=== PATIENT | male | born 1950 ===

== ENCOUNTER 2017-07-27 13:37 | Emergency (ER) | payer MEDICARE, OTHER ==
[2017-07-27 14:03] VITALS: BP 151/73
[2017-07-27] MEDS ORDERED: Acetaminophen TAB* 325 MG PO ONE (14:51)
--- NOTE | 2017-07-27 14:51 | UC ---
UC General HPI - HPI Summary HPI Summary: pt is c/o a headache, sore throat, body aches and a red goopy eye since M.onday. Was exposed to great grandchild with pink eye just before onset - History of Current Complaint Chief Complaint: UCGeneralIllness Stated Complaint: HEADACHE/COUGH/EYE COMP Time Seen by Provider: 07/27/17 14:42 Hx Obtained From: Patient, Family/Medical File Clerk Onset/Duration: Gradual Onset Timing: Constant Pain Intensity: 5 Associated Signs & Symptoms: Positive: Headache. Negative: Cough, Chest Pain - Allergy/Home Medications Allergies/Adverse Reactions: Allergies Allergy/AdvReac Type Severity Reaction Status Date / Time No Known Allergies Allergy Verified 07/27/17 13:55 Home Medications: Home Medications Atorvastatin* [Lipitor 20 MG*] 20 mg PO BEDTIME 07/27/17 [History Confirmed ] Ibuprofen TAB* [Motrin TAB* 800 MG] 800 mg PO Q8HR PRN 07/27/17 [History Confirmed 07/27/17] Lisinopril TAB* [Prinivil TAB 10 MG*] 10 mg PO DAILY 07/27/17 [History Confirmed 07/27/17] glipiZIDE [Glipizide ER] 1 tab PO BID 07/27/17 [History Confirmed 07/27/17] metFORMIN* [Glucophage 500 MG TAB *] 500 mg PO BID 07/27/17 [History Confirmed 07/27/17] PMH/Surg Hx/FS Hx/Imm Hx Endocrine History: Diabetes, Dyslipidemia Cardiovascular History: Hypertension - Surgical History Surgical History: Yes Surgery Procedure, Year, and Place: Left toe surgery s/p chainsaw accident - Social History Alcohol Use: None Substance Use Type: None Smoking Status (MU): Never Smoked Tobacco Household Exposure Type: Cigarettes Review of Systems Constitutional: Negative Skin: Negative Eyes: Drainage - L, Eye Redness - L ENT: Sore Throat, Sinus Congestion Respiratory: Negative Cardiovascular: Negative Gastrointestinal: Negative Genitourinary: Negative Motor: Negative Neurovascular: Negative Musculoskeletal: Myalgia Neurological: Headache Psychological: Negative Is Patient Immunocompromised?: No All Other Systems Reviewed And Are Negative: Yes Physical Exam Triage Information Reviewed: Yes Appearance: Well-Appearing Vital Signs: Initial Vital Signs Temp 99.1 F 07/27/17 13:56 Pulse 69 07/27/17 13:56 Resp 20 07/27/17 13:56 BP 151/73 07/27/17 13:56 Pulse Ox 97 07/27/17 13:56 Vital Signs Reviewed: Yes Eyes: Positive: Other: - L eye with conjunctival erythema and scant yellow exudate on lashes. no photophobia periorbiatl edema or rash. ENT: Positive: Pharyngeal erythema, TMs normal, Uvula midline. Negative: Nasal congestion, Nasal drainage, Trismus, Muffled voice Neck: Positive: Supple, Nontender, No Lymphadenopathy Respiratory: Positive: Lungs clear, Normal breath sounds Cardiovascular: Positive: RRR, No Murmur Abdomen Description: Positive: Nontender, No Organomegaly, Soft Bowel Sounds: Positive: Present Musculoskeletal: Positive: ROM Intact Neurological: Positive: Alert Psychological: Positive: Normal Response To Family, Age Appropriate Behavior Skin Exam: Normal Diagnostics - Laboratory Diagnostic Studies Completed/Ordered: rpid strep and flu are negative. Course/Dx - Course Course Of Treatment: Exam c/o L pink eye and uri - Differential Dx - Multi-Symptom Provider Diagnoses: URI. conjunctivitis OS Discharge - Sign-Out/Discharge Documenting (check all that apply): Discharge - Discharge Plan Condition: Stable Disposition: HOME Prescriptions: Polymyx/Trimethoprim OPTH* [Polytrim OPHTH*] 2 drop LEFT EYE Q3H 7 Days #1 btl Patient Education Materials: Conjunctivitis (ED), Upper Respiratory Infection ( ED) Referrals: Lora Monterroso MD [Primary Care Provider] - 7 Days - Billing Disposition and Condition Condition: STABLE Disposition: HOME
== END 2017-07-27 15:43 | disposition home or self-care (01) ==
LOC: UCCORT 13:37
DX: J06.9 Acute upper respiratory infection, unspecified (principal); H10.9 Unspecified conjunctivitis; E11.9 Type 2 diabetes mellitus without complications; Z79.84 Long term (current) use of oral hypoglycemic drugs; I10 Essential (primary) hypertension; E78.5 Hyperlipidemia, unspecified
CPT/HCPCS: 87502; 87651; 99212; A9270-GY; G0463

== ENCOUNTER 2018-06-21 15:49 | Inpatient (IN) | payer OTHER ==
--- NOTE | 2018-06-21 15:59 | ED ---
Lower Extremity - HPI Summary HPI Summary: Pt is a 67 y/o male brought in by EMS who presents to the ED c/o toe wound. He was attacked by a dog 3 weeks ago and was admitted to [facility] s/p left fourth toe amputation. Pt was just released today to [facility]. He was sent here today for possible necrosis of his left third toe. He denies any fevers or chills. Pt currently rates his pain as a 10/10 in severity. He is unsure if he is currently on antibiotics. PMhx DM, chronic kidney disease. - History of Current Complaint Chief Complaint: EDExtremityLower Stated Complaint: LT TOE INJURY PER EMS Time Seen by Provider: 06/21/18 15:56 Hx Obtained From: Patient Mechanism Of Injury: Other - attacked by a dog Onset/Duration: Worse Since - 3 Severity Currently: Severe Pain Intensity: 10 Pain Scale Used: 0-10 Numeric Timing: Constant Location: Is Discrete @ - left foot - Allergies/Home Medications Allergies/Adverse Reactions: Allergies Allergy/AdvReac Type Severity Reaction Status Date / Time No Known Allergies Allergy Verified 06/21/18 15:57 PMH/Surg Hx/FS Hx/Imm Hx Endocrine/Hematology History: Reports: Hx Diabetes History: Reports: Hx Renal Disease - chronic kidney disease Musculoskeletal History: Reports: Other Musculoskeletal History - fourth left toe amputation - Surgical History Surgery Procedure, Year, and Place: Left toe surgery s/p chainsaw accident Infectious Disease History: No Infectious Disease History: Denies: Traveled Outside the [place] in Last 30 Days - Family History Known Family History: Negative: Hypertension - Social History Alcohol Use: None Hx Substance Use: No Substance Use Type: Reports: None Hx Tobacco Use: No Smoking Status (MU): Never Smoked Tobacco Review of Systems Negative: Fever, Chills Positive: Other - wound on left third toe All Other Systems Reviewed And Are Negative: Yes Physical Exam - Summary Physical Exam Summary: Appearance: The patient is well-nourished in no acute distress and in no acute pain. Skin: The skin is warm and dry and skin color reflects adequate perfusion. Multiple healing wounds on left foot with mild erythema. HEENT: The head is normocephalic and atraumatic. The pupils are equal and reactive. The conjunctivae are clear and without drainage. Nares are patent and without drainage. Mouth reveals moist mucous membranes and the throat is without erythema and exudate. The external ears are intact. The ear canals are patent and without drainage. The tympanic membranes are intact. Neck: The neck is supple with full range of motion and non-tender. There are no carotid bruits. There is no neck vein distension. Respiratory: Chest is non-tender. Lungs are clear to auscultation and breath sounds are symmetrical and equal. Cardiovascular: Heart is regular rate and rhythm. There is no murmur or rub auscultated. There is no peripheral edema and pulses are symmetrical and equal. Abdomen: The abdomen is soft and non-tender. There are normal bowel sounds heard in all four quadrants and there is no organomegaly palpated. Musculoskeletal: There is no back tenderness noted. Extremities are non-tender with full range of motion. There is good capillary refill. There is no peripheral edema or calf tenderness elicited. Left fourth toe missing. Left third toe necrotic and malodorous. Right foot in surgical boot. Neurological: Patient is alert and oriented to person, place and time. The patient has symmetrical motor strength in all four extremities. Cranial nerves are grossly intact. Deep tendon reflexes are symmetrical and equal in all four extremities. Psychiatric: The patient has an appropriate affect and does not exhibit any anxiety or depression. Triage Information Reviewed: Yes Vital Signs On Initial Exam: Initial Vitals Temp Pulse Resp BP Pulse Ox 99.0 F 110 18 114/81 96 06/21/18 15:54 06/21/18 15:54 06/21/18 15:54 06/21/18 15:54 06/21/18 15:54 Vital Signs Reviewed: Yes Diagnostics - Vital Signs Vital Signs Temp Pulse Resp BP Pulse Ox 06/21/18 15:54 99.0 F 110 18 114/81 96 - Laboratory Result Diagrams: 06/21/18 16:30 06/21/18 16:30 Lab Statement: Any lab studies that have been ordered have been reviewed, and results considered in the medical decision making process. - Radiology Foot XR Radiology Interpretation Completed By: Radiologist Summary of Radiographic Findings: 1. SOFT TISSUE SWELLING AND GAS WITHIN THE SOFT TISSUES SUGGESTIVE OF AN INFECTIOUS NECROTIZING PROCESS. 2. POSTSURGICAL CHANGES IN THE GREAT TOE. THERE IS JOINT SPACE NARROWING AND EROSIVE CHANGE IN THE INTERPHALANGEAL JOINT OF THE GREAT TOE POSSIBLY INDICATING A SEPTIC ARTHRITIS, POSTSURGICAL CHANGE OR AN INFLAMMATORY ARTHROPATHY. ED physician reviewed radiology report. Lower Extremity Course/Dx - Course Course Of Treatment: [facility]. [facility]. He has been in the hospital in [place] for 3 weeks after surgery on his left foot with fourth toe amputation after a dog bite. The nurse apparently took his bandage down and were concerned about the wounds. On arrival here was slightly tachycardic and when we took his bandage down he was noted to have a necrotic third toe and a swollen and erythematous distal foot. Leukocytosis of 14 was noted on labs as well as an elevated CRP and a foot x- ray shows gas in the soft tissues. On arrival was given IV normal saline and when I saw the x-ray he was then given IV Zosyn and Dr. Baum was contacted. Dr. Baum felt we should keep him here in the hospital and admitted to the hospitalist service and he will consult. - Diagnoses Provider Diagnoses: Wound infection, Sepsis - Physician Notifications Discussed Care Of Patient With: Kanu Baum Time Discussed With Above Provider: 17:17 Instructed by Provider To: Other - Dr. Baum recommends admission. At 17:[address] Nunez who accepts pt for admission. - Critical Care Time Critical Care Time: 30-74 min Discharge - Sign-Out/Discharge Documenting (check all that apply): Patient Departure - Admit Patient Received Moderate/Deep Sedation with Procedure: No - Discharge Plan Condition: Stable Disposition: ADMITTED TO [facility] Referrals: Lora Monterroso MD [Medical Doctor] - - Billing Disposition and Condition Condition: STABLE Disposition: Admitted to [facility] - Attestation Statements Document Initiated by Raven: Yes Documenting Scribe: La Parisi Provider For Whom Raven is Documenting (Include Credential): Francis Long MD Scribe Attestation: La Bailey, scribed for Francis Long MD on 06/21/18 at 1734. Scribe Documentation Reviewed: Yes Provider Attestation: The documentation as recorded by the La tovar accurately reflects the service I personally performed and the decisions made by me, Francis Long MD Status of Scribe Document: Viewed
[2018-06-21] MEDS ORDERED: NS 0.9% 1000 ML** 1,000 ML IV ONE ×2 (16:10→17:08)
[2018-06-21 16:40] LABS: ABS Basophils 0.1 10^3/ul (0-0.2); ABS Eosinophils 0.3 10^3/ul (0-0.6); ABS Lymphocytes 2.5 10^3/ul (1.0-4.8); ABS Monocytes 1.1 10^3/ul (0-0.8); ABS Neutrophils 10.2 10^3/ul (1.5-7.7); ABS Nucleated RBC 0 10^3/ul; Eosinophil % 2.2 %; Hematocrit 30 % (42-52); Hemoglobin 10.1 g/dl (14.0-18.0); Lymphocyte % 17.8 %; Mean Corpuscular HGB Conc 34 g/dl (31-36); Mean Corpuscular Hemoglobin 28 pg (27-31); Mean Corpuscular Volume 84 fL (80-94); Mean Platelet Volume 7.4 fL (7.4-10.4); Nucleated Red Blood Cells % 0; Platelet Count 995 10^3/ul (150-450); Red Blood Count 3.61 10^6/ul (4.00-5.40); Red Cell Distribution Width 14 % (10.5-15); White Blood Count 14.2 10^3/ul (3.5-10.8)
[2018-06-21 16:50] LABS: Activated Partial Thrombo Time 30.6 seconds (26.0-36.3); INR 1.2 (0.77-1.02)
[2018-06-21 16:58] LABS: Albumin 3.4 g/dL (3.2-5.2); Albumin/Globulin Ratio 0.8 (1-3); BUN/Creatinine Ratio 19.6 (8-20); C Reactive Protein 194.06 mg/L (<8.01); Calcium 9.3 mg/dL (8.6-10.3); EGFR African American 59.9 (>60); EGFR Non-African American 49.5 (>60); Globulin 4.2 g/dL (2-4); Potassium 4.4 mmol/L (3.5-5.0); Total Bilirubin 0.4 mg/dL (0.2-1.0); Total Protein 7.6 g/dL (6.4-8.9)
[2018-06-21] MEDS ORDERED: Clotrimazole TROCHE* 10 MG TROCHE PO ONE (17:06)
[2018-06-21] MEDS ORDERED: Piperacillin/Tazobac ADVAN(*) 3.375 GM in NS 0.9% 100 ML* 100 ML IVPB ONE (17:08)
[2018-06-21] MEDS ORDERED: Ondansetron INJ* 2 MG/ML VIAL IV PRN (18:06)
[2018-06-21] MEDS ORDERED: Heparin VIAL(*) 5000 UNITS/ML VIAL (FIVE THOUSAND) SUBCUT ONE (18:08)
[2018-06-21] MEDS ORDERED: oxyCODONE TAB* 5 MG TAB PO PRN (18:09)
[2018-06-21] MEDS ORDERED: Dextrose 50% Syringe 50 ML* 25 GM/50 ML SYRINGE IV PUSH PRN (18:27)
[2018-06-21] MEDS ORDERED: NS 0.9% IV SCH (18:30)
[2018-06-21] MEDS ORDERED: Insulin LISPRO* 1 UNITS UNIT SUBCUT ONE (18:54)
[2018-06-21] MEDS ORDERED: Zosyn per Pharmacy* NOTE FOLLOW UP SCH (19:00)
[2018-06-21] MEDS: Insulin LISPRO* 1 UNITS UNIT SUBCUT SCH (19:06)
[2018-06-21] MEDS: Clotrimazole TROCHE* 10 MG TROCHE PO SCH ×2 (20:57→21:13)
[2018-06-21] MEDS: Atorvastatin* 20 MG TAB PO SCH (21:09)
[2018-06-21] MEDS: Docusate CAP* 100 MG PO SCH (21:09)
[2018-06-21] MEDS: Linezolid 600 MG IVPREMIX(*) 600 MG/300 ML BAG IVPB SCH (21:10)
[2018-06-21] MEDS: NS 0.9% 1000 ML** 1,000 ML IV SCH (21:12)
--- NOTE | 2018-06-21 22:07 | HP ---
CC: Eva Valentine MD; Dr. Kanu Baum * ADMISSION HISTORY AND PHYSICAL: DATE OF ADMISSION: 06/21/18 PRIMARY CARE PROVIDER: Eva Valentine MD. MY ATTENDING WHILE IN THE HOSPITAL: Dr. Mcmahon * (DICTATED BY CONSTANTIN CHACKO) CONSULTING ORTHOPEDIST: Dr. Kanu Baum. CHIEF COMPLAINT: Black left third toe. HISTORY OF PRESENT ILLNESS: Mr. Tyson is a 67-year-old male with past medical history significant for diabetes mellitus type 2, high blood pressure and kidney disease, who presents to the emergency department after 2 weeks ago he was feeling under the weather with flu-like symptoms and subsequently went out to find 2 of his dogs fighting, slipped and had both of his feet mauled by the dogs that were fighting. The patient was sent to [facility] where they sutured up his laceration on his legs. He states that at that time he got couple days of IV antibiotics, but does not think he got anything more and was not discharged on antibiotics. The patient had an amputation of his left fourth toe, but did not have any further amputation. Per records from [facility], the patient was to follow up with the orthopedist postoperatively to assess the wound after "that cleared itself." They state that the wound was still evolving. The patient did not progress well with physical therapy and was referred to [facility] for subacute rehab. The patient did not complain of systemic symptoms such as fevers, chills, nausea, vomiting, dizziness, chest pain, shortness of breath, did complain of at times severe pain in his foot up to worst of rating 9/10. The patient did not feel that he was ready to be discharged from [facility]. The patient was transferred to [facility] and then referred to [facility] to emergency department due to the appearance of his left foot. On arrival to the emergency department, the patient's left foot appeared erythematous with what appeared to be a necrotic third left toe. The patient had elevated white blood cell count, elevated platelet count, severely elevated CRP. The patient had blood cultures drawn, was given Zosyn. The patient had x-ray of his foot, which showed subcutaneous gas and other signs of soft tissue swelling. His case was discussed with orthopedist, Dr. Kanu Baum, who recommended admission with nonemergent Orthopedic evaluation and broad-spectrum antibiotic coverage. The patient at the time of evaluation had significantly decreased pain in his foot at 3/10, still no systemic symptoms. The patient has never had claudication in his legs. The patient did not have dyspnea on exertion, orthopnea or other signs of heart failure including swelling in his legs prior to his admission to [facility]. Due to concern for left lower extremity infection, we are asked to evaluate the patient for admission to the hospital. PAST MEDICAL HISTORY: Diabetes mellitus type 2, hypertension, BPH, chronic kidney stage 1. PAST SURGICAL HISTORY: Toe reattachment in 1970s, fourth toe amputation with rotational flap as well as debridement of skin, subcutaneous tissue, fascia and bone associated with open fracture and 29 cm of sutures in bilateral feet. MEDICATIONS: Medications per discharge from [facility]. 1. Clotrimazole wandy 10 mg 5 times daily for 10 days. 2. Docusate sodium 100 mg 2 times daily for 10 days. 3. Oxycodone 2.5 mg p.o. every 4 hours as needed for pain. 4. Polyethylene glycol 1 packet p.o. daily. 5. Tamsulosin 0.4 mg p.o. daily. 6. Atorvastatin 20 mg p.o. daily. 7. Glipizide 10 mg q.24 hours. 8. Ibuprofen 800 mg p.o. q.8 hours as needed. 9. Lisinopril 10 mg p.o. daily. 10. Metformin 500 mg p.o. daily. ALLERGIES: No known drug allergies. FAMILY HISTORY: The patient's father of heart disease and kidney failure. The patient's mother of throat cancer. The patient has a brother who is alive and has coronary artery disease and stenting. SOCIAL HISTORY: The patient denies ever smoking. The patient has quit alcohol over 25 years ago. The patient denies illicit drug use. 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 The patient is recently a and has 4 children. The patient's surrogate decision maker would be his [id number], Trisha Beck. REVIEW OF SYSTEMS: A 14-point review of systems was reviewed and is negative except as above in the HPI. PHYSICAL EXAMINATION GENERAL: The patient is a 67-year-old male who appears stated age and sitting comfortably in bed, in no acute distress. VITAL SIGNS: Temperature 98.6, pulse rate 109, respiratory rate 19, oxygen saturation 98% on room air, blood pressure 124/72. HEENT: Head normocephalic, atraumatic. Sclerae anicteric. No conjunctival injection. Nasal mucosa moist. Oral mucosa moist. No pharyngeal erythema, discharge or exudate. NECK: Supple, nontender. No lymphadenopathy. No carotid bruit auscultated. No JVD. RESPIRATORY: Clear to auscultation bilaterally. No wheezes, rales or rhonchi. Good air exchange bilaterally. HEART: Regular rate and rhythm. No clicks, murmurs, gallops or rubs. Pulses 2 + in bilateral dorsalis pedis areas, posterior tibialis and radial areas. ABDOMEN: Soft, nontender, nondistended. Bowel sounds present in all 4 quadrants. No hepatosplenomegaly. No abdominal bruits auscultated. No hepatojugular reflux. GENITOURINARY: No suprapubic or CVA tenderness. NEUROLOGIC: Cranial nerves II through XII intact. No focal deficits. Alert and oriented x3. PSYCHIATRIC: Pleasant and cooperative. SKIN: Left foot visualized with necrotic third toe down to area of suture line circumferentially surrounding third toe. There is a skin flap on the plantar surface of the left foot with necrotic area around the suture line as well as a possible necrotic area on the sutured skin flap with small area of necrosis on the dorsum of the foot. No subcutaneous crepitus. Surgically absent fourth toe with granulation tissue over area with pink moist wound bed. Pin inserted into left great toe pressure ulcer and right foot not visualized. LABORATORY DATA/DIAGNOSTIC STUDIES: White blood cell count 14.2, hemoglobin 10.1, platelet count 995. INR 1.2, aPTT 36.0. Sodium 130, potassium 4.4, chloride 96, carbon dioxide 24, anion gap 10, BUN 28, creatinine 1.43, glucose 291, lactic acid 1.6, calcium 9.3. Bilirubin 0.4, AST 22, ALT 32, alkaline phosphatase 61. CRP 194.06, protein 7.6, albumin 3.4, globulin 4.2. Studies: Foot x-ray read as soft tissue swelling and gas within the soft tissues suggesting infectious necrotizing process. Postsurgical changes in great toe. There is joint space narrowing and erosive change in the interphalangeal joint of the great toe, possibly indicating septic arthritis, postsurgical change or inflammatory arthropathy. ASSESSMENT AND PLAN/IMPRESSION: Mr. Tyson is a 67-year-old male with past medical history significant for diabetes mellitus, chronic kidney disease, hypertension and recent dog bites to his bilateral feet, who presents to the emergency department from [facility] after being discharged today from [facility] with left third toe necrosis and associated cellulitis with concern for deep soft tissue infection and possible osteomyelitis. The patient admitted to the hospital for broad-spectrum antibiotics and Orthopedic consultation. 1. Left foot cellulitis, possible deep tissue infection. The patient had numerous dog bites of his bilateral feet. The patient's left foot is more affected than the right. The patient has a necrotic third toe, which will likely need surgical intervention. The patient already had his fourth toe amputated, which appears to be healing relatively well. The patient has several skin flaps on his left foot, which appear to be healing well. These will be further evaluated by Orthopedics. The patient was started on broad- spectrum antibiotics with Zosyn and linezolid given subcutaneous gas as linezolid has possible efficacy in decreasing toxin production. The patient is normotensive and is no longer tachycardic after fluid bolus. The patient is stable and does not need emergent surgical intervention. The patient will be n.p.o. after midnight for possible surgical intervention tomorrow. The patient will be evaluated by Wound Care. The patient's wound at this time will be left open to air. The patient's wound culture was obtained and antibiotics will be tailored based on culture data and sensitivities. 2. Sepsis. The patient is tachycardic, has leukocytosis with a likely source of his left lower extremity. The patient has possible acute kidney injury with an elevated creatinine of 1.43, indicating chronic kidney disease stage 3A from a reported chronic kidney stage of 3. The patient will be monitored closely for chronic deterioration. The patient has received a bolus of 300 mL/kg and has been started on broad-spectrum antibiotics as above. The patient has a normal lactic acid. 3. Hypertension. The patient is currently normotensive, we will hold the patient's lisinopril in the setting of acute kidney injury. 4. Acute kidney injury. This is likely prerenal due to infection. The patient received fluid bolus and this will be repeated in the morning. Further urine studies could be appropriate at that time as well as imaging of the kidney and bladder if indicated. This is on top of chronic kidney disease report stage 1 from [facility]. 5. Diabetes mellitus type 2. The patient is currently hyperglycemic likely related to infection. We will hold the patient's metformin due to acute kidney injury and sepsis as well as glipizide due to n.p.o. status after midnight and we will start on insulin sliding scale and will be given 7 units now for hyperglycemia. We will check an hemoglobin A1c. The patient should have tight glucose control as recommended. Goal below 180 due to need for wound healing. 6. Benign prostatic hyperplasia, urinary retention. The patient has an indwelling Ordonez catheter from [facility]. We will check a urinalysis and voiding trial if the patient is still inpatient at that time when a voiding trial would be recommended. This could be attempted inpatient at the hospital. Otherwise, the patient should follow up with Urology as scheduled from [facility]. 7. DVT prophylaxis. The patient was on aspirin for DVT prophylaxis. This will be held for possible surgical intervention tomorrow. We will give 1 dose of heparin subcu at this time. The patient has been on Lovenox subcu until today for DVT prophylaxis. 8. Fluids, electrolytes, nutrition. The patient will have a consistent carbohydrate diet and then will be n.p.o. after midnight. 9. Disposition. The patient is admitted to inpatient with expected length of stay greater than 2 days. TIME SPENT: Approximately 75 minutes was spent on this admission of this patient, 30 of which was spent [id number] with the patient obtaining history and physical. This plan was discussed with my attending, Dr. Camilla Mcmahon, and she is in agreement. CONSTANTIN CHACKO [id number]/[facility] #: [id number] RAUL
[2018-06-21] MEDS: ZOSYN 3.375 GM Q8H per EXTENDED INFUSION IVPB SCH ×2 (22:10)
[2018-06-22] MEDS: oxyCODONE TAB* 5 MG TAB PO PRN ×5 (01:26→22:33)
[2018-06-22] MEDS: Acetaminophen TAB* 325 MG PO PRN (01:26)
[2018-06-22] MEDS: ZOSYN 3.375 GM Q8H per EXTENDED INFUSION IVPB SCH ×6 (05:44→22:27)
[2018-06-22] MEDS: Clotrimazole TROCHE* 10 MG TROCHE PO SCH ×5 (05:48→22:35)
[2018-06-22 07:23] LABS: ABS Basophils 0.1 10^3/ul (0-0.2); ABS Eosinophils 0.4 10^3/ul (0-0.6); ABS Monocytes 0.9 10^3/ul (0-0.8); ABS Neutrophils 6.3 10^3/ul (1.5-7.7); ABS Nucleated RBC 0 10^3/ul; Eosinophil % 3.9 %; Hematocrit 27 % (42-52); Hemoglobin 8.9 g/dl (14.0-18.0); Lymphocyte % 20.6 %; Mean Corpuscular HGB Conc 33 g/dl (31-36); Mean Corpuscular Hemoglobin 28 pg (27-31); Mean Corpuscular Volume 83 fL (80-94); Mean Platelet Volume 7.5 fL (7.4-10.4); Nucleated Red Blood Cells % 0; Platelet Count 792 10^3/ul (150-450); Red Blood Count 3.21 10^6/ul (4.00-5.40); Red Cell Distribution Width 14 % (10.5-15); White Blood Count 9.7 10^3/ul (3.5-10.8)
[2018-06-22] MEDS ORDERED: Pneumococcal *Vac Polyvalent 0.5 ML VIAL IM ONE (09:00)
[2018-06-22 09:09] LABS: BUN/Creatinine Ratio 16.2 (8-20); Calcium 8.6 mg/dL (8.6-10.3); EGFR African American 63.4 (>60); EGFR Non-African American 52.4 (>60); Magnesium 1.9 mg/dL (1.9-2.7); Potassium 4.4 mmol/L (3.5-5.0)
[2018-06-22] MEDS: Tamsulosin CAP* 0.4 MG PO SCH (09:21)
[2018-06-22] MEDS: Docusate CAP* 100 MG PO SCH ×2 (09:21→22:33)
[2018-06-22] MEDS: Insulin LISPRO* 1 UNITS UNIT SUBCUT SCH ×4 (09:22→22:31)
[2018-06-22] MEDS: Polyethylene Glycol 3350* 17 GM PACKET PO SCH (09:23)
--- NOTE | 2018-06-22 09:47 | CONS ---
CONSULTATION REPORT: DATE OF CONSULT: 06/22/18 HISTORY OF PRESENT ILLNESS: Sedrick is a 67-year-old gentleman who was involved in a dog incident a few weeks ago and evidently there were some puncture wounds to his left and right forefoot. He had been followed at [facility] and then admitted with pinning of his great toe, amputation of his 4th toe and dressing changes. He received some IV antibiotics for a period of time and then was transferred to [facility] and they became alarmed at the appearance of his foot and then transferred him back to the emergency room here at [facility]. He was admitted to the medical service, I am consulting from Orthopedics. He has gangrene of his left forefoot, foul smelling, purulent drainage and a CT scan that revealed some gas in the soft tissues. He is here for evaluation of further amputation work and IV antibiotics. MEDICATIONS: Sedrick is on a variety of medications outlined in the chart including clotrimazole, docusate, some eye drops, atorvastatin, glipizide, metformin. 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 His family near his home. He claims to be active ambulator in the community when the weather is "better." PHYSICAL EXAMINATION: On examination, he is a mildly obese male lying in bed. He is conversant, but is not particularly free and verbose about details of his history. He has a warm left hindfoot, but there is significant necrosis near the base of the metatarsal 3 and 4. The toe that is remaining is completely mummified. On the plantar aspect, there are some small irregular areas of skin breakdown with some purulent drainage. The great toe has a pin and also has some signs of necrosis. The foot in general smells badly. He has really no sensation at all below the ankle area. I do not feel a pulse, but the foot is warehouse examiner the hindfoot. The right forefoot has some punctate areas of decreased blood supply, but no extensive patches of necrosis and no significant purulent drainage at this point in time. Again, his CT scan shows irregularity of the bone contours that are remaining and a significant amount of gas in the soft tissues consistent with a mixed bacterial infection. LABORATORY DATA: His labs are significant for admitting white blood count high , glucose 290, and CRP that is also well over a 100. IMPRESSION: I discussed with Sedrick the condition of the foot and the fact that he is at risk for losing not only the foot and the ankle, but ending up with the transtibial amputation. He may have a heeling level back further [facility] the hind[facility], which will leave him with a heel for weightbearing. He seems shocked at this entire discussion even though his foot is essentially necrotic in the forefoot and very foul swelling. This surprises me. At any rate, surgery could be performed as early as tomorrow morning. He wants to discuss it with his family obviously and I will be available if they have other questions. [id number]/[facility] #: [id number] RAUL
[2018-06-22 10:13] LABS: Urine Appearance Turbid; Urine Bacteria Absent (Absent); Urine Bilirubin Negative (Negative); Urine Blood 1+ (Negative); Urine Color Yellow; Urine Glucose Negative (Negative); Urine Ketones Negative (Negative); Urine Nitrite Negative (Negative); Urine Protein 1+(30 mg/dL) (Negative); Urine Red Blood Cell 3+(>10/hpf) (Absent); Urine Urobilinogen Negative (Negative); Urine White Blood Cell 3+(>20/hpf) (Absent)
[2018-06-22] MEDS: Linezolid 600 MG IVPREMIX(*) 600 MG/300 ML BAG IVPB SCH ×2 (10:40→11:46)
--- NOTE | 2018-06-22 11:44 | PN ---
Subjective Date of Service: 06/22/18 Interval History: Pt stated that pain of b/l feet is controlled. L 4th toe was amputated on at [facility] He was transferred to [facility] for STR on 06/21/18 and sent to ED from [place] the same day Pt stated that received rabies shots at [facility] and the dogs are "gone". Pt is very vague when talking abut the incident with dogs, but apparently he was bitten to b/l feet when trying to break a dog fight Objective Active Medications: Acetaminophen (Tylenol Tab*) 650 mg PO Q6H PRN PRN Reason: FEVER/PAIN Last Admin: 06/22/18 01:26 Dose: 650 mg Atorvastatin Calcium (Lipitor*) 20 mg PO BEDTIME [facility] Last Admin: 06/21/18 21:09 Dose: 20 mg Clotrimazole (Mycelex Hanane*) 10 mg PO FIVE TIMES DAILY [facility] Last Admin: 06/22/18 09:21 Dose: 10 mg Dextrose (D50w Syringe 50 Ml*) 12.5 gm IV PUSH .FOR FS < 60 - SS PRN PRN Reason: FS < 60 Docusate Sodium (Colace Cap*) 100 mg PO BID [facility] Last Admin: 06/22/18 09:21 Dose: 100 mg Sodium Chloride (Ns 0.9% 1000 Ml) 1,000 mls @ 75 mls/hr IV PER RATE [facility] Last Admin: 06/21/18 21:12 Dose: 75 mls/hr Piperacillin Sod/Tazobactam (Sod 3.375 gm/ Sodium Chloride) 100 mls @ 25 mls/ hr IVPB Q8H [facility] Last Admin: 06/22/18 05:44 Dose: 25 mls/hr Linezolid (Zyvox 600 Mg Ivpremix(*)) 600 mg in 300 mls @ 300 mls/hr IVPB 0000, 1200 [facility] Insulin Human Lispro (Humalog*) 0 units SUBCUT ACHS [facility]; Protocol Last Admin: 06/22/18 09:22 Dose: 3 units Morphine Sulfate (Morphine Vial*) 2 mg IV Q4H PRN PRN Reason: PAIN - MILD Ondansetron HCl (Zofran Inj*) 4 mg IV Q6H PRN PRN Reason: NAUSEA Oxycodone HCl (Roxycodone Tab*) 5 mg PO Q4H PRN PRN Reason: PAIN Last Admin: 06/22/18 09:22 Dose: 5 mg Pharmacy Consult (Zosyn Per Pharmacy*) 1 note FOLLOW UP .ZOSYN PER PHARMACY [facility] Polyethylene Glycol/Electrolytes (Miralax*) 17 gm PO DAILY [facility] Last Admin: 06/22/18 09:23 Dose: 17 gm Tamsulosin HCl (Flomax Cap*) 0.4 mg PO DAILY [facility] Last Admin: 06/22/18 09:21 Dose: 0.4 mg Vital Signs - 8 hr 06/22/18 06/22/18 06/22/18 03:54 07:25 08:41 Temperature 97.6 F 97.9 F Pulse Rate 65 70 Respiratory 16 20 20 Rate Blood Pressure 109/57 138/65 (mmHg) O2 Sat by Pulse 96 Oximetry 06/22/18 06/22/18 08:56 09:22 Temperature Pulse Rate Respiratory 20 Rate Blood Pressure (mmHg) O2 Sat by Pulse 97 Oximetry Oxygen Devices in Use Now: None Appearance: 67 yo obese M in nAD, AAOx3 Eyes: No Scleral Icterus, PERRLA Ears/Nose/Mouth/Throat: NL Teeth, Lips, Gums, Mucous Membranes Moist Neck: NL Appearance and Movements; NL JVP, Trachea Midline Respiratory: Symmetrical Chest Expansion and Respiratory Effort, Clear to Auscultation Cardiovascular: NL Sounds; No Murmurs; No JVD, RRR Abdominal: NL Sounds; No Tenderness; No Distention Lymphatic: No Cervical Adenopathy Extremities: No Clubbing, Cyanosis, - - trace pedal edema b/l Skin: No Nodules or Sclerosis, - - left great toe with post op pin in place, left 3rd toe necrotic, black, foul smelling, s/p amputation of left 4th toe. r foot paller in color c/w left with muliple sutures on dorsal and plantar aspect Neurological: NL Muscle Strength and Tone Result Diagrams: 06/22/18 07:06 06/22/18 07:06 Microbiology and Other Data: Microbiology 06/21/18 20:05 Nasal Screen MRSA (PCR) - Final Nasal Mrsa Detected 06/21/18 17:25 Skin and Soft Tissue MRSA/MSSA (PCR - Final Foot Left Mrsa Negative S.aureus Negative Gram Stain - Final Assess/Plan/Problems-Billing Assessment: 67 yo m with h/o DM, CKD, HTN who suffered from multiple b/l foot wounds after trying to break up a dog fight 06/03/18. Transferred to [facility] and had b/l foot surgery on 06/04/18 with left forth toe amputation and multiple wound sutured and left great toe pinned. Transferred to [facility] on 06/21/18 and back to our ED the same day after staff at [facility] noted gangrene on left 3rd toe - Patient Problems (1) Osteomyelitis Comment: of left 3rd and forth metatarsal Cont Zosyn, linezolid Pt also has fx of first metatarsal head To OR with Dr. Baum tomorrow. (2) DM2 (diabetes mellitus, type 2) Comment: metformin , glipizide on hold, cont ISS (3) CKD (chronic kidney disease) stage 3, GFR 30-59 ml/min Comment: due to DM, cont to monitor (4) HTN (hypertension) Comment: controlled, lisinopril on hold (5) Urinary retention Comment: pt was discharged from [facility] with Ordonez in place to f/u with urology will cont Ordonez (6) DVT prophylaxis Comment: HSQ Status and Disposition: Inpatient
[2018-06-22] MEDS: NS 0.9% 1000 ML** 1,000 ML IV SCH (11:46)
[2018-06-22] MEDS: Atorvastatin* 20 MG TAB PO SCH (22:33)
[2018-06-23] MEDS: Linezolid 600 MG IVPREMIX(*) 600 MG/300 ML BAG IVPB SCH ×2 (01:27→13:34)
[2018-06-23] MEDS: NS 0.9% 1000 ML** 1,000 ML IV SCH (03:11)
[2018-06-23 06:06] LABS: Hematocrit 28 % (42-52); Hemoglobin 8.8 g/dl (14.0-18.0); Mean Corpuscular HGB Conc 32 g/dl (31-36); Mean Corpuscular Hemoglobin 27 pg (27-31); Mean Corpuscular Volume 84 fL (80-94); Mean Platelet Volume 7.4 fL (7.4-10.4); Platelet Count 759 10^3/ul (150-450); Red Blood Count 3.29 10^6/ul (4.00-5.40); Red Cell Distribution Width 14 % (10.5-15); White Blood Count 13.6 10^3/ul (3.5-10.8)
[2018-06-23] MEDS: ZOSYN 3.375 GM Q8H per EXTENDED INFUSION IVPB SCH ×6 (06:10→21:43)
[2018-06-23] MEDS: Clotrimazole TROCHE* 10 MG TROCHE PO SCH ×5 (06:28→22:01)
[2018-06-23 06:38] LABS: BUN/Creatinine Ratio 14.4 (8-20); Calcium 8.5 mg/dL (8.6-10.3); EGFR African American 69.9 (>60); EGFR Non-African American 57.8 (>60); Potassium 4.5 mmol/L (3.5-5.0)
[2018-06-23] MEDS ORDERED: Bupivacaine 0.5%* 50 ML VIAL ONE (07:32)
[2018-06-23] MEDS: Insulin LISPRO* 1 UNITS UNIT SUBCUT SCH ×4 (07:48→22:00)
[2018-06-23] MEDS ORDERED: Famotidine IV* 10 MG/ML 2 ML (20 mg) ONE (08:17)
[2018-06-23] MEDS ORDERED: DiMENhydriNATE IV* 50 MG/ML VIAL IV PUSH PRN (08:20)
[2018-06-23] MEDS ORDERED: Naloxone* 0.4 MG/ML 1 ML VIAL IV PRN (08:20)
[2018-06-23] MEDS ORDERED: Levalbuterol 0.63MG/3ML NEB* UNIT OF USE INH PRN (08:20)
[2018-06-23] MEDS ORDERED: fentaNYL* 50 MCG/ML 2 ML VIAL (100 MCG VIAL) IV PRN ×2 (08:20)
[2018-06-23] MEDS ORDERED: PROCHLORPERAZINE INJ 5 MG/ML 2 ML VIAL IV PRN (08:20)
[2018-06-23] MEDS ORDERED: fentaNYL* 50 MCG/ML 2 ML VIAL (100 MCG VIAL) ONE (08:25)
[2018-06-23] MEDS ORDERED: Midazolam* 1 MG/ML 2 ML VIAL (2 MG) ONE (08:26)
[2018-06-23] MEDS ORDERED: Propofol* 10 MG/ML 20 ML BTL ONE (08:37)
[2018-06-23] MEDS ORDERED: Lidocaine 2% PF * 5 ML VIAL ONE (08:37)
[2018-06-23] MEDS ORDERED: Morphine PF AMP (0.5MG/ML)* 5 MG/10 ML AMP ONE (08:55)
[2018-06-23] MEDS ORDERED: Morphine 10 MG/ML VIAL (1 ml) ONE (08:56)
[2018-06-23] MEDS ORDERED: oxyCODONE TAB* 5 MG TAB ONE (10:05)
[2018-06-23] MEDS ORDERED: Morphine 4 MG/ML VIAL (1 ml) 4 MG/ML VIAL ONE (10:05)
[2018-06-23] MEDS: Morphine 4 MG/ML VIAL (1 ml) 4 MG/ML VIAL IV PRN ×3 (10:08→19:49)
[2018-06-23] MEDS: oxyCODONE TAB* 5 MG TAB PO PRN ×2 (10:10→21:13)
[2018-06-23] MEDS ORDERED: Morphine 4 MG/ML VIAL (1 ml) 4 MG/ML VIAL IV PRN (10:44)
[2018-06-23] MEDS ORDERED: diPHENhydraMINE IV* 50 MG/ML 1 ml VIAL (BENADRYL) IV ONE (10:47)
[2018-06-23] MEDS ORDERED: diPHENhydraMINE IV* 50 MG/ML 1 ml VIAL (BENADRYL) ONE (10:49)
--- NOTE | 2018-06-23 11:40 | OP ---
DATE OF OPERATION: 06/23/18 - ROOM #[id number] DATE OF : 52 SURGEON: Dr Kanu Baum. GRAPE PRUNER: Marianna Small PA-C. PRE-OP DIAGNOSIS: Diabetes with left forefoot, midfoot gangrenous infection. POST-OP DIAGNOSIS: Diabetes with left forefoot, midfoot gangrenous infection. OPERATIVE PROCEDURE: Left midfoot amputation with VAC dressing. DESCRIPTION OF PROCEDURE: The patient was taken to the operating room where a transverse elliptical incision was made over the left midfoot. His left forefoot was significantly necrotic with a mummified third toe and eschar over the third and fourth webspaces back to the TMT level and pus draining out of that eschar area, also foul smelling. A transverse elliptical incision was made roughly at the Cuneiform level dissecting proximally. We were able to disarticulate the midfoot at the midtarsal cunei and navicular access. We divided the plantar flap and delivered the foot to Pathology. Local cultures were sent. We then dropped the tourniquet and obtained hemostasis and then a 3 L saline lavage was performed. I fashioned the VAC dressing to fit the defect sealing the plantar and dorsal and applying the suction canister. Compressing dressing was then applied. [id number]/[facility] #: [id number] MTDD
[2018-06-23] MEDS: Polyethylene Glycol 3350* 17 GM PACKET PO SCH (12:21)
[2018-06-23] MEDS: Tamsulosin CAP* 0.4 MG PO SCH (12:30)
[2018-06-23] MEDS: Docusate CAP* 100 MG PO SCH ×2 (12:30→21:43)
[2018-06-23] MEDS ORDERED: oxyCODONE/Acetamin 5/325 MG* TAB PO PRN (13:23)
[2018-06-23] MEDS ORDERED: oxyCODONE/Acetamin 5/325 MG* TAB ONE (13:24)
[2018-06-23] MEDS: oxyCODONE/Acetamin 5/325 MG* TAB PO PRN ×2 (13:25→18:10)
--- NOTE | 2018-06-23 14:14 | PN ---
Subjective Date of Service: 06/23/18 Interval History: Pt is s/o left midfoot amputation, post op pain ids fairly controlled Objective Active Medications: Acetaminophen (Tylenol Tab*) 650 mg PO Q6H PRN PRN Reason: FEVER/PAIN Last Admin: 06/22/18 01:26 Dose: 650 mg Atorvastatin Calcium (Lipitor*) 20 mg PO BEDTIME [facility] Last Admin: 06/22/18 22:33 Dose: 20 mg Clotrimazole (Mycelex Hanane*) 10 mg PO FIVE TIMES DAILY [facility] Last Admin: 06/23/18 10:01 Dose: Not Given Dextrose (D50w Syringe 50 Ml*) 12.5 gm IV PUSH .FOR FS < 60 - SS PRN PRN Reason: FS < 60 Docusate Sodium (Colace Cap*) 100 mg PO BID [facility] Last Admin: 06/23/18 12:30 Dose: 100 mg Sodium Chloride (Ns 0.9% 1000 Ml) 1,000 mls @ 75 mls/hr IV PER RATE [facility] Last Admin: 06/23/18 03:11 Dose: 75 mls/hr Piperacillin Sod/Tazobactam (Sod 3.375 gm/ Sodium Chloride) 100 mls @ 25 mls/ hr IVPB Q8H [facility] Last Admin: 06/23/18 06:10 Dose: 25 mls/hr Linezolid (Zyvox 600 Mg Ivpremix(*)) 600 mg in 300 mls @ 300 mls/hr IVPB 0000, 1200 [facility] Last Admin: 06/23/18 13:34 Dose: 300 mls/hr Insulin Human Lispro (Humalog*) 0 units SUBCUT [facility]; Protocol Last Admin: 06/23/18 13:29 Dose: 3 units Morphine Sulfate (Morphine Vial*) 2 mg IV Q4H PRN PRN Reason: PAIN - MILD Last Admin: 06/23/18 10:08 Dose: 2 mg Ondansetron HCl (Zofran Inj*) 4 mg IV Q6H PRN PRN Reason: NAUSEA Oxycodone HCl (Roxycodone Tab*) 5 mg PO Q4H PRN PRN Reason: PAIN Last Admin: 06/23/18 10:10 Dose: 5 mg Oxycodone/Acetaminophen (Percocet 5/325 Tab*) 1 tab PO Q4H PRN PRN Reason: PAIN Oxycodone/Acetaminophen (Percocet 5/325 Tab*) 2 tab PO Q4H PRN PRN Reason: PAIN Last Admin: 06/23/18 13:25 Dose: 2 tab Pharmacy Consult (Zosyn Per Pharmacy*) 1 note FOLLOW UP .ZOSYN PER PHARMACY [facility] Polyethylene Glycol/Electrolytes (Miralax*) 17 gm PO DAILY [facility] Last Admin: 06/23/18 12:21 Dose: Not Given Tamsulosin HCl (Flomax Cap*) 0.4 mg PO DAILY [facility] Last Admin: 06/23/18 12:30 Dose: 0.4 mg Vital Signs - 8 hr 06/23/18 06/23/18 06/23/18 07:20 08:00 09:32 Temperature Pulse Rate 102 Respiratory 24 16 Rate Blood Pressure 142/85 (mmHg) O2 Sat by Pulse 98 Oximetry 06/23/18 06/23/18 06/23/18 09:35 09:36 09:41 Temperature 97.9 F Pulse Rate 97 98 Respiratory 13 Rate Blood Pressure 148/78 148/78 (mmHg) O2 Sat by Pulse 100 99 Oximetry 06/23/18 06/23/18 06/23/18 09:46 09:51 10:01 Temperature Pulse Rate 97 98 95 Respiratory 22 23 17 Rate Blood Pressure 129/97 155/80 175/90 (mmHg) O2 Sat by Pulse 99 99 99 Oximetry 06/23/18 06/23/18 06/23/18 10:08 10:10 10:16 Temperature Pulse Rate 95 Respiratory 20 20 25 Rate Blood Pressure 169/93 (mmHg) O2 Sat by Pulse 98 Oximetry 06/23/18 06/23/18 06/23/18 10:26 10:30 10:45 Temperature 98.4 F Pulse Rate 93 96 Respiratory 24 26 Rate Blood Pressure 126/78 134/80 (mmHg) O2 Sat by Pulse 98 94 Oximetry 06/23/18 06/23/18 06/23/18 10:46 10:52 10:59 Temperature Pulse Rate 90 Respiratory 24 22 16 Rate Blood Pressure 138/78 (mmHg) O2 Sat by Pulse 98 Oximetry 06/23/18 06/23/18 06/23/18 11:01 11:23 12:27 Temperature 98.7 F 98.7 F Pulse Rate 93 91 91 Respiratory 22 16 16 Rate Blood Pressure 143/67 134/68 134/68 (mmHg) O2 Sat by Pulse 98 96 96 Oximetry 06/23/18 13:25 Temperature Pulse Rate Respiratory 18 Rate Blood Pressure (mmHg) O2 Sat by Pulse Oximetry Oxygen Devices in Use Now: None Appearance: 67 yo M in nAD, AAOx3 Eyes: No Scleral Icterus, PERRLA Ears/Nose/Mouth/Throat: NL Teeth, Lips, Gums, Mucous Membranes Moist Neck: NL Appearance and Movements; NL JVP Respiratory: Symmetrical Chest Expansion and Respiratory Effort, Clear to Auscultation Cardiovascular: NL Sounds; No Murmurs; No JVD, RRR Abdominal: NL Sounds; No Tenderness; No Distention, No Hepatosplenomegaly Lymphatic: No Cervical Adenopathy Extremities: No Clubbing, Cyanosis, - - trace b/l dital leg edema. L foot s/p midfoot amoutation with Vac dressing in place. Skin: No Nodules or Sclerosis, - - R foot with DAWSON bandages in place, sutured lacerations on plantar and dorsal aspect of right foot Neurological: Alert and Oriented x 3, NL Muscle Strength and Tone Result Diagrams: 06/23/18 05:50 06/23/18 05:50 Microbiology and Other Data: Microbiology 06/21/18 20:05 Nasal Screen MRSA (PCR) - Final Nasal Mrsa Detected 06/21/18 17:25 Skin and Soft Tissue MRSA/MSSA (PCR - Final Foot Left Mrsa Negative S.aureus Negative Gram Stain - Final Assess/Plan/Problems-Billing Assessment: 67 yo m with h/o DM, CKD, HTN who suffered from multiple b/l foot wounds after trying to break up a dog fight 06/03/18. Transferred to [facility] and had b/l foot surgery on 06/04/18 with left forth toe amputation and multiple wound sutured and left great toe pinned. Transferred to [facility] on 06/21/18 and back to our ED the same day after staff at [facility] noted gangrene on left 3rd toe - Patient Problems (1) Osteomyelitis Comment: of left 3rd and forth metatarsal , s/p left midfoot amputation on -now with Vac dressing in place Cont Zosyn, linezolid (2) DM2 (diabetes mellitus, type 2) Comment: metformin , glipizide on hold, cont ISS (3) CKD (chronic kidney disease) stage 3, GFR 30-59 ml/min Comment: due to DM, cont to monitor (4) HTN (hypertension) Comment: controlled, lisinopril on hold (5) Urinary retention Comment: pt was discharged from [facility] with Ordonez in place to f/u with urology will cont Ordonez (6) Anemia Comment: normocytic, with post op worsening cont to monitor No signs of acute bleeding (7) DVT prophylaxis Comment: HSQ held post op, will restart it tomorrow after f/u CBC Status and Disposition: Inpatient
--- NOTE | 2018-06-23 21:30 | PN ---
Hospitalist Progress Note Date of Service: 06/23/18 Wound Cx MRSA+; added Vancomycin to regimen. Added PRN Dialudid w/appropriate holding orders and decreased interval between Morphine doses due to complaints of pain.
[2018-06-23] MEDS: Atorvastatin* 20 MG TAB PO SCH (21:42)
[2018-06-23] MEDS: HYDROmorphone INJ1* 1 MG/ML SYRINGE IV SLOW PU PRN (21:42)
[2018-06-23] MEDS ORDERED: Vancomycin per Pharmacy* NOTE FOLLOW UP SCH ×2 (22:00)
[2018-06-23] MEDS ORDERED: Vancomycin(*) 1,500 MG in NS 0.9% 250 ML* 250 ML IVPB ONE (22:00)
[2018-06-24] MEDS: oxyCODONE/Acetamin 5/325 MG* TAB PO PRN ×2 (01:00→20:17)
[2018-06-24] MEDS: ZOSYN 3.375 GM Q6H - Intermittant 30 min Infusion IVPB SCH ×8 (04:06→23:37)
[2018-06-24] MEDS: HYDROmorphone INJ1* 1 MG/ML SYRINGE IV SLOW PU PRN ×2 (04:12→10:28)
[2018-06-24] MEDS: Clotrimazole TROCHE* 10 MG TROCHE PO SCH ×5 (05:30→23:34)
[2018-06-24 06:17] LABS: ABS Basophils 0.2 10^3/ul (0-0.2); ABS Eosinophils 0.3 10^3/ul (0-0.6); ABS Lymphocytes 2.3 10^3/ul (1.0-4.8); ABS Monocytes 1.3 10^3/ul (0-0.8); ABS Neutrophils 11.1 10^3/ul (1.5-7.7); ABS Nucleated RBC 0 10^3/ul; Eosinophil % 1.8 %; Hematocrit 27 % (42-52); Hemoglobin 8.7 g/dl (14.0-18.0); Lymphocyte % 15.2 %; Mean Corpuscular HGB Conc 32 g/dl (31-36); Mean Corpuscular Hemoglobin 27 pg (27-31); Mean Corpuscular Volume 83 fL (80-94); Mean Platelet Volume 7.5 fL (7.4-10.4); Nucleated Red Blood Cells % 0; Platelet Count 808 10^3/ul (150-450); Red Blood Count 3.21 10^6/ul (4.00-5.40); Red Cell Distribution Width 14 % (10.5-15); White Blood Count 15.2 10^3/ul (3.5-10.8)
[2018-06-24 06:39] LABS: Calcium 8.7 mg/dL (8.6-10.3); EGFR African American 66.8 (>60); EGFR Non-African American 55.2 (>60); Potassium 4.2 mmol/L (3.5-5.0)
[2018-06-24] MEDS: Docusate CAP* 100 MG PO SCH ×2 (09:09→20:18)
[2018-06-24] MEDS: Tamsulosin CAP* 0.4 MG PO SCH (09:09)
[2018-06-24] MEDS: Polyethylene Glycol 3350* 17 GM PACKET PO SCH (09:09)
[2018-06-24] MEDS: Insulin LISPRO* 1 UNITS UNIT SUBCUT SCH ×4 (09:16→20:57)
[2018-06-24] MEDS: Morphine 4 MG/ML VIAL (1 ml) 4 MG/ML VIAL IV PRN ×2 (09:30→16:05)
--- NOTE | 2018-06-24 09:39 | PN ---
Subjective Date of Service: 06/24/18 Interval History: Pt feels "OK". Awaiting another surgery today in PM for possible eval and debridement of R foot (as per pt) Objective Active Medications: Acetaminophen (Tylenol Tab*) 650 mg PO Q6H PRN PRN Reason: FEVER/PAIN Last Admin: 06/22/18 01:26 Dose: 650 mg Atorvastatin Calcium (Lipitor*) 20 mg PO BEDTIME [facility] Last Admin: 06/23/18 21:42 Dose: 20 mg Clotrimazole (Mycelex Hanane*) 10 mg PO FIVE TIMES DAILY [facility] Last Admin: 06/24/18 09:10 Dose: Not Given Dextrose (D50w Syringe 50 Ml*) 12.5 gm IV PUSH .FOR FS < 60 - SS PRN PRN Reason: FS < 60 Docusate Sodium (Colace Cap*) 100 mg PO BID [facility] Last Admin: 06/24/18 09:09 Dose: Not Given Hydromorphone HCl (Dilaudid Inj1s*) 0.5 mg IV SLOW PU Q6H PRN PRN Reason: PAIN Last Admin: 06/24/18 04:12 Dose: 0.5 mg Piperacillin Sod/Tazobactam (Sod 3.375 gm/ Sodium Chloride) 100 mls @ 200 mls/ hr IVPB Q6H [facility] Last Admin: 06/24/18 09:30 Dose: 200 mls/hr Vancomycin HCl 1,250 mg/ (Sodium Chloride) 250 mls @ 166.667 mls/hr IVPB ONCE [facility]; Protocol Stop: 06/24/18 23:59 Insulin Human Lispro (Humalog*) 0 units SUBCUT ACHS [facility]; Protocol Last Admin: 06/24/18 09:16 Dose: 3 units Morphine Sulfate (Morphine Vial*) 2 mg IV Q3H PRN PRN Reason: PAIN - MILD Last Admin: 06/24/18 09:30 Dose: 2 mg Ondansetron HCl (Zofran Inj*) 4 mg IV Q6H PRN PRN Reason: NAUSEA Oxycodone HCl (Roxycodone Tab*) 5 mg PO Q4H PRN PRN Reason: PAIN Last Admin: 06/23/18 21:13 Dose: 5 mg Oxycodone/Acetaminophen (Percocet 5/325 Tab*) 1 tab PO Q4H PRN PRN Reason: PAIN Oxycodone/Acetaminophen (Percocet 5/325 Tab*) 2 tab PO Q4H PRN PRN Reason: PAIN Last Admin: 06/24/18 01:00 Dose: 2 tab Pharmacy Consult (Zosyn Per Pharmacy*) 1 note FOLLOW UP .ZOSYN PER PHARMACY [facility] Pharmacy Consult (Vancomycin Per Pharmacy*) 1 note FOLLOW UP .VANC PER PHARMACY [facility] Polyethylene Glycol/Electrolytes (Miralax*) 17 gm PO DAILY [facility] Last Admin: 06/24/18 09:09 Dose: Not Given Tamsulosin HCl (Flomax Cap*) 0.4 mg PO DAILY [facility] Last Admin: 06/24/18 09:09 Dose: Not Given Vital Signs - 8 hr 06/24/18 06/24/18 06/24/18 02:30 04:04 04:12 Temperature 100.1 F Pulse Rate 91 Respiratory 18 16 18 Rate Blood Pressure 153/75 (mmHg) O2 Sat by Pulse 99 Oximetry 06/24/18 06/24/18 06/24/18 05:00 08:14 09:30 Temperature 98.6 F Pulse Rate 80 Respiratory 18 16 18 Rate Blood Pressure 135/79 (mmHg) O2 Sat by Pulse 97 Oximetry Oxygen Devices in Use Now: Nasal Cannula Appearance: 67 yo M in nAD, aAOx3 Eyes: No Scleral Icterus, PERRLA Ears/Nose/Mouth/Throat: NL Teeth, Lips, Gums, Mucous Membranes Moist Neck: NL Appearance and Movements; NL JVP, Trachea Midline Respiratory: Symmetrical Chest Expansion and Respiratory Effort, Clear to Auscultation Cardiovascular: NL Sounds; No Murmurs; No JVD, RRR Abdominal: NL Sounds; No Tenderness; No Distention Lymphatic: No Cervical Adenopathy Extremities: No Clubbing, Cyanosis, - - trace pedal edema on R, left foot stump with Vac in place Skin: No Nodules or Sclerosis, - - R foot dressing not removed preop Neurological: Alert and Oriented x 3, NL Muscle Strength and Tone Result Diagrams: 06/24/18 05:38 06/24/18 05:38 Microbiology and Other Data: Microbiology 06/21/18 20:05 Nasal Screen MRSA (PCR) - Final Nasal Mrsa Detected 06/21/18 17:25 Skin and Soft Tissue MRSA/MSSA (PCR - Final Foot Left Mrsa Negative S.aureus Negative Gram Stain - Final Assess/Plan/Problems-Billing Assessment: 67 yo m with h/o DM, CKD, HTN who suffered from multiple b/l foot wounds after trying to break up a dog fight 06/03/18. Transferred to [facility] and had b/l foot surgery on 06/04/18 with left forth toe amputation and multiple wound sutured and left great toe pinned. Transferred to [facility] on 06/21/18 and back to our ED the same day after staff at [facility] noted gangrene on left 3rd toe - Patient Problems (1) Osteomyelitis Comment: of left 3rd and forth metatarsal , s/p left midfoot amputation on -now with Vac dressing in place Cont Zosyn,Vanc. Cx positive for E. coli and MRSA, ID following (2) DM2 (diabetes mellitus, type 2) Comment: metformin , glipizide on hold, cont ISS (3) CKD (chronic kidney disease) stage 3, GFR 30-59 ml/min Comment: due to DM, cont to monitor (4) HTN (hypertension) Comment: controlled, lisinopril on hold (5) Urinary retention Comment: pt was discharged from [facility] with Ordonez in place to f/u with urology will cont Ordonez (6) Anemia Comment: normocytic, with post op worsening cont to monitor No signs of acute bleeding (7) DVT prophylaxis Comment: HSQ held pre op Status and Disposition: Inpatient
[2018-06-24] MEDS ORDERED: Piperacillin/Tazobac ADVAN(*) 3.375 GM in NS 0.9% 100 ML* 100 ML IVPB SCH (10:00)
[2018-06-24] MEDS ORDERED: Vancomycin per Pharmacy* NOTE FOLLOW UP SCH (10:00)
[2018-06-24] MEDS ORDERED: Vancomycin(*) 1,500 MG in NS 0.9% 250 ML* 250 ML IVPB ONE (10:00)
[2018-06-24] MEDS: NS 0.9% 1000 ML** 1,000 ML IV SCH ×2 (10:17→20:26)
[2018-06-24] MEDS ORDERED: Vancomycin(*) 1,250 MG in NS 0.9% 250 ML* 250 ML IVPB SCH (11:00)
--- NOTE | 2018-06-24 12:35 | CONS ---
CONSULTATION REPORT: DATE OF CONSULT: 06/24/18 REQUESTING PHYSICIAN: Dr. Baum. CONSULTING SERVICE: Infectious Disease. REASON FOR CONSULT: 1. Left foot dry and wet gangrene with acute osteomyelitis after dog bite, status post midfoot amputation. 2. Right foot dog bite injuries with great toe cellulitis. 3. Type 2 diabetes with peripheral neuropathy. 4. Chronic kidney disease. RECOMMENDATIONS: We will continue vancomycin, goal trough 10 to 15, and Zosyn while wait on the culture material. Because of the persistent right foot infections and possible involvement of the hindfoot and ankle, we will plan to continue long course of IV antibiotics. He had his tetanus updated at [facility] and dog's rabies status was vaccinated per the patient. HISTORY OF PRESENT ILLNESS: This is a 67-year-old man who had multiple dog bites on his feet end of May and was at [facility] for 2 weeks where he had pinning of his great toe on the left. He says the feet were basically wrapped for a couple of weeks. He was given antibiotics and was discharged to [facility]. When they looked at his feet in [place], they put him right back in the ambulance and sent him to the ER here because of gangrene and foul odor in the foot. His white count was 14,000 and platelet count 900,000. He is having fevers and chills. He had a CT that showed gas and soft tissue and osteomyelitis of the toe. Foot cultures growing E. coli. Operative cultures showed Gram-positive cocci which was MRSA positive by PCR. He is on vancomycin and Zosyn and tolerating that well. He is going back to the OR today for reevaluation of the VAC dressing and evaluation of the right great toe. PAST MEDICAL HISTORY: 1. Type 2 diabetes. 2. Morbid obesity. 3. Peripheral neuropathy. 4. Hypertension. 5. Benign prostatic hypertrophy. 6. Stage 1 chronic kidney disease. 7. Status post right fourth toe amputation and rotational flap after a dog bite. MEDICATIONS: 1. Tylenol. 2. Lipitor. 3. Clotrimazole. 4. Docusate. 5. Dilaudid as needed. 6. Morphine as needed. 7. Oxycodone as needed. 8. Zosyn. 9. Vancomycin. ALLERGIES: No known drug allergies. FAMILY HISTORY: No recurrent infections. SOCIAL HISTORY: He lives in [place]. 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 REVIEW OF SYSTEMS: All negative 14-point review except as noted above in the history of present illness. PHYSICAL EXAM: Vital Signs: Temperature 37, T max 38.1, heart rate 80, respiratory rate 16, blood pressure 135/79, oxygen saturation 97% on room air. In general, he is awake, not in distress. Neurologic: He is oriented x3. Follows the commands. HEENT: There is no conjunctival hemorrhage. Oropharynx without lesions. Neck is supple without mass. Heart has regular rate and rhythm without murmurs, rubs, or gallops. Lungs are clear to auscultation bilaterally. Abdomen: Soft, nontender, nondistended. There are bowel sounds present. Skin: There is no rash or splinter hemorrhage. Musculoskeletal: Left foot surgically absent. There is a VAC dressing. Right foot sutured dorsal surface and mild erythema, medial great toe. DIAGNOSTIC STUDIES/LAB DATA: White blood cell count 15, hemoglobin 8, MCV 80, platelets 808, creatinine 1.3. Please see impressions and recommendations outlined above, which I discussed with Dr. Nieto. Thanks for asking me to see Mr. Tyson in consultation. [id number]/[facility] #: [id number] MTDD
[2018-06-24] MEDS ORDERED: Morphine INJ* 2 MG/ML 1 ML SYRINGE (TWO MG - NEW SYRINGE VERSION) ONE (12:51)
[2018-06-24] MEDS ORDERED: Buffered Lidocaine 1% SYRIN* 1 ML/SYRINGE INTRADERM ONE (15:38)
[2018-06-24] MEDS ORDERED: Morphine 4 MG/ML VIAL (1 ml) 4 MG/ML VIAL ONE (16:03)
[2018-06-24] MEDS ORDERED: Bupivacaine 0.5%* 50 ML VIAL ONE (16:21)
[2018-06-24] MEDS ORDERED: Midazolam* 1 MG/ML 2 ML VIAL (2 MG) ONE (16:23)
[2018-06-24] MEDS ORDERED: fentaNYL* 50 MCG/ML 2 ML VIAL (100 MCG VIAL) ONE (16:23)
[2018-06-24] MEDS ORDERED: fentaNYL* 50 MCG/ML 5 ML VIAL (250 MCG VIAL) ONE (17:02)
[2018-06-24] MEDS ORDERED: Ondansetron INJ* 2 MG/ML VIAL ONE (17:03)
[2018-06-24] MEDS ORDERED: Propofol* 10 MG/ML 20 ML BTL ONE (17:03)
[2018-06-24] MEDS ORDERED: Lidocaine 2% PF * 5 ML VIAL ONE (17:04)
[2018-06-24] MEDS ORDERED: oxyCODONE TAB* 5 MG TAB ONE (18:18)
[2018-06-24] MEDS ORDERED: HYDROmorphone INJ1* 1 MG/ML SYRINGE ONE (18:18)
[2018-06-24] MEDS: oxyCODONE TAB* 5 MG TAB PO PRN ×2 (18:20→23:44)
[2018-06-24] MEDS: Atorvastatin* 20 MG TAB PO SCH (20:18)
[2018-06-25] MEDS: Vancomycin(*) 1,250 MG in NS 0.9% 250 ML* 250 ML IVPB SCH ×2 (00:34→12:28)
--- NOTE | 2018-06-25 00:46 | OP ---
DATE OF OPERATION: 06/24/18 - ROOM #339 DATE OF : 52 SURGEON: Kanu Baum MD [employer]: CONSTANTIN Jackson PRE-OP DIAGNOSIS: Necrotic, infected, right medial forefoot status post dog bite. POST-OP DIAGNOSIS: Necrotic infected right medial forefoot status post dog bite. OPERATIVE PROCEDURE: Soft tissue debridement, right medial forefoot with a VAC dressing. DESCRIPTION OF PROCEDURE: The patient was taken to the operating room where the patient was noted to have about an 8-cm incision along the medial first ray , basically from the first phalanx down to the cuneiform area, which look like he had had some loose suturing, but it was scab and necrotic edges and draining foul smelling pus. With a #10 blade, I debrided this area extensively taking back skin, it had soft tissue and FHL tendon underneath which looked to be grossly infected. There was a foul sour smell from the foot. Pulsatile lavage was performed with 3 L of saline and tourniquet was dropped for local hemostasis. There was no obvious involvement of bone or joints. A VAC dressing was then fashioned to fit this forefoot defect. This was placed and wrapped with an I[place] wrap. Cultures were sent as well of the soft tissue. [id number]/[facility] #: [id number] [facility]OSPITALMaria
[2018-06-25] MEDS: oxyCODONE/Acetamin 5/325 MG* TAB PO PRN ×4 (03:52→18:16)
[2018-06-25] MEDS: ZOSYN 3.375 GM Q6H - Intermittant 30 min Infusion IVPB SCH ×4 (04:01→10:19)
[2018-06-25] MEDS: Clotrimazole TROCHE* 10 MG TROCHE PO SCH ×5 (06:34→23:58)
[2018-06-25 07:01] LABS: Hematocrit 26 % (42-52); Hemoglobin 8.5 g/dl (14.0-18.0); Mean Corpuscular HGB Conc 33 g/dl (31-36); Mean Corpuscular Hemoglobin 28 pg (27-31); Mean Corpuscular Volume 84 fL (80-94); Platelet Count 676 10^3/ul (150-450); Red Blood Count 3.05 10^6/ul (4.00-5.40); Red Cell Distribution Width 14 % (10.5-15); White Blood Count 13.2 10^3/ul (3.5-10.8)
[2018-06-25 07:18] LABS: BUN/Creatinine Ratio 11.5 (8-20); Calcium 8.7 mg/dL (8.6-10.3); EGFR African American 78.6 (>60); EGFR Non-African American 64.9 (>60); Potassium 4.4 mmol/L (3.5-5.0)
[2018-06-25] MEDS: Insulin LISPRO* 1 UNITS UNIT SUBCUT SCH ×4 (07:39→20:25)
[2018-06-25] MEDS: Docusate CAP* 100 MG PO SCH ×2 (09:11→20:25)
[2018-06-25] MEDS: Polyethylene Glycol 3350* 17 GM PACKET PO SCH (09:11)
[2018-06-25] MEDS: Tamsulosin CAP* 0.4 MG PO SCH (09:12)
[2018-06-25] MEDS: NS 0.9% 1000 ML** 1,000 ML IV SCH (10:19)
[2018-06-25] MEDS ORDERED: Vancomycin Trough Check NOTE FOLLOW UP ONE ×2 (10:30)
[2018-06-25] MEDS: Nystatin TOP POWDER* 15 GM BTL TOPICAL SCH ×2 (12:00→20:25)
[2018-06-25] MEDS ORDERED: Meclizine TAB* 12.5 MG PO PRN (12:55)
[2018-06-25] MEDS ORDERED: Meclizine TAB* 12.5 MG PO ONE (12:55)
--- NOTE | 2018-06-25 13:02 | PN ---
Subjective Date of Service: 06/25/18 Interval History: Pt c/o dizziness when moving his head abruptly. No /N/V Objective Active Medications: Acetaminophen (Tylenol Tab*) 650 mg PO Q6H PRN PRN Reason: FEVER/PAIN Last Admin: 06/22/18 01:26 Dose: 650 mg Atorvastatin Calcium (Lipitor*) 20 mg PO BEDTIME [facility] Last Admin: 06/24/18 20:18 Dose: 20 mg Clotrimazole (Mycelex Hanane*) 10 mg PO FIVE TIMES DAILY [facility] Last Admin: 06/25/18 10:22 Dose: 10 mg Dextrose (D50w Syringe 50 Ml*) 12.5 gm IV PUSH .FOR FS < 60 - SS PRN PRN Reason: FS < 60 Docusate Sodium (Colace Cap*) 100 mg PO BID [facility] Last Admin: 06/25/18 09:11 Dose: 100 mg Sodium Chloride (Ns 0.9% 1000 Ml) 1,000 mls @ 75 mls/hr IV PER RATE [facility] Stop: 06/25/18 23:59 Last Admin: 06/25/18 10:19 Dose: 75 mls/hr Piperacillin Sod/Tazobactam (Sod 3.375 gm/ Sodium Chloride) 100 mls @ 200 mls/ hr IVPB Q6H [facility] Last Admin: 06/25/18 10:19 Dose: 200 mls/hr Vancomycin HCl 1,000 mg/ (Sodium Chloride) 250 mls @ 166.667 mls/hr IVPB Q12H [facility] Insulin Human Lispro (Humalog*) 0 units SUBCUT ACHS [facility]; Protocol Last Admin: 06/25/18 07:39 Dose: Not Given Meclizine HCl (Antivert Tab*) 25 mg PO Q8HR PRN PRN Reason: DIZZINESS Meclizine HCl (Antivert Tab*) 25 mg PO ONCE ONE Stop: 06/25/18 12:56 Morphine Sulfate (Morphine Vial*) 2 mg IV Q3H PRN PRN Reason: PAIN - MILD Last Admin: 06/24/18 16:05 Dose: 2 mg Nystatin (Nystatin Top Powder*) 1 applic TOPICAL BID [facility] Ondansetron HCl (Zofran Inj*) 4 mg IV Q6H PRN PRN Reason: NAUSEA Oxycodone HCl (Roxycodone Tab*) 5 mg PO Q4H PRN PRN Reason: PAIN Last Admin: 06/24/18 23:44 Dose: 5 mg Oxycodone/Acetaminophen (Percocet 5/325 Tab*) 1 tab PO Q4H PRN PRN Reason: PAIN Oxycodone/Acetaminophen (Percocet 5/325 Tab*) 2 tab PO Q4H PRN PRN Reason: PAIN Last Admin: 06/25/18 09:12 Dose: 2 tab Pharmacy Consult (Zosyn Per Pharmacy*) 1 note FOLLOW UP .ZOSYN PER PHARMACY [facility] Pharmacy Consult (Vancomycin Per Pharmacy*) 1 note FOLLOW UP .VANC PER PHARMACY [facility] Pharmacy Profile Note (Vancomycin Trough Check) 1 note FOLLOW UP 1430 ONE Stop: 06/27/18 14:31 Polyethylene Glycol/Electrolytes (Miralax*) 17 gm PO DAILY [facility] Last Admin: 06/25/18 09:11 Dose: 17 gm Tamsulosin HCl (Flomax Cap*) 0.4 mg PO DAILY [facility] Last Admin: 06/25/18 09:12 Dose: 0.4 mg Vital Signs - 8 hr 06/25/18 06/25/18 06/25/18 06:34 07:45 09:12 Temperature 98.6 F Pulse Rate 84 Respiratory 16 17 18 Rate Blood Pressure 133/76 (mmHg) O2 Sat by Pulse 92 Oximetry 06/25/18 06/25/18 06/25/18 09:15 11:30 11:54 Temperature 98.1 F Pulse Rate 83 Respiratory 18 20 16 Rate Blood Pressure 133/74 (mmHg) O2 Sat by Pulse 95 93 Oximetry Oxygen Devices in Use Now: None Appearance: 67 yo M in nAD, aAOx3 Eyes: No Scleral Icterus, PERRLA Ears/Nose/Mouth/Throat: NL Teeth, Lips, Gums, Mucous Membranes Moist Neck: NL Appearance and Movements; NL JVP, Trachea Midline Respiratory: Symmetrical Chest Expansion and Respiratory Effort, Clear to Auscultation Cardiovascular: NL Sounds; No Murmurs; No JVD, RRR Abdominal: NL Sounds; No Tenderness; No Distention, No Hepatosplenomegaly Lymphatic: No Cervical Adenopathy Extremities: - - trace b/l calf edema. L foot s/o midfoot amputation with Vac in place. R foot with Vac in place Skin: No Nodules or Sclerosis Neurological: Alert and Oriented x 3, NL Muscle Strength and Tone Result Diagrams: 06/25/18 06:54 06/25/18 06:54 Microbiology and Other Data: Microbiology 06/21/18 20:05 Nasal Screen MRSA (PCR) - Final Nasal Mrsa Detected 06/21/18 17:25 Skin and Soft Tissue MRSA/MSSA (PCR - Final Foot Left Mrsa Negative S.aureus Negative Gram Stain - Final Assess/Plan/Problems-Billing Assessment: 67 yo m with h/o DM, CKD, HTN who suffered from multiple b/l foot wounds after trying to break up a dog fight 06/03/18. Transferred to [facility] and had b/l foot surgery on 06/04/18 with left forth toe amputation and multiple wound sutured and left great toe pinned. Transferred to [facility] on 06/21/18 and back to our ED the same day after staff at [facility] noted gangrene on left 3rd toe - Patient Problems (1) Osteomyelitis Comment: of left 3rd and forth metatarsal , s/p left midfoot amputation on -now with Vac dressing in place S/p r foot debridement and Vac placement on 06/24/18 Cont Zosyn,Vanc. Cx positive for E. coli and MRSA,bacterioides. ID following (2) DM2 (diabetes mellitus, type 2) Comment: metformin , glipizide on hold, cont ISS (3) CKD (chronic kidney disease) stage 3, GFR 30-59 ml/min Comment: due to DM, cont to monitor (4) HTN (hypertension) Comment: controlled, lisinopril on hold (5) Urinary retention Comment: pt was discharged from [facility] with Ordonez in place to f/u with urology will cont Ordonez (6) Anemia Comment: normocytic, with post op worsening cont to monitor No signs of acute bleeding (7) Dizziness Comment: likely benign positional vertigo: meclizine started (8) DVT prophylaxis Comment: HSQ Status and Disposition: Inpatient
[2018-06-25] MEDS: Heparin VIAL(*) 5000 UNITS/ML VIAL (FIVE THOUSAND) SUBCUT SCH ×2 (13:44→23:59)
[2018-06-25 14:19] LABS: Activated Partial Thrombo Time 30.6 seconds (26.0-36.3); INR 1.37 (0.77-1.02)
[2018-06-25 14:37] LABS: EGFR African American 71.2 (>60); EGFR Non-African American 58.9 (>60)
--- NOTE | 2018-06-25 15:45 | PN ---
Progress Note - Progress Note Date of Service: 06/25/18 SOAP: Subjective: []Pt seen OOB in chair. His BL LE pain is tolerable, RLE more painful then left. Denies CP, SOB, dizziness, nausea, fever Objective: []General: NAD BL LE: wound vacs functioning well, dressings CDI. Sensation intact to light touch distally. Calves above dressing are without erythema or edema. Assessment: []POD 1 sp debridement right medial forefoot POD 2 sp L midfoot amp Surgeon Dr Baum Plan: []NWB BL LE Keep wound vac in place Continue abx per ID Vital Signs Temp 98.1 F 06/25/18 11:30 Pulse 83 06/25/18 11:30 Resp 18 06/25/18 13:42 BP 133/74 06/25/18 11:30 Pulse Ox 93 06/25/18 11:30 Intake & Output 06/24/18 06/25/18 06/25/18 18:59 06:59 18:59 Intake Total 1300 1431 730 Output Total 1400 2900 1300 Balance -100 -1469 -570 Intake: IV Fluids 1300 401 ABX - PIPERACILLIN 111 NS 100ML, Zosyn 3.375G 100 abx - vanco 290 lr 1200 Oral 0 1030 730 Output: Ordonez 1400 2900 1300 Other: # Bowel Movements 0 Laboratory Last Values WBC 13.2 10^3/ul (3.5-10.8) H 06/25/18 06:54 RBC 3.05 10^6/ul (4.00-5.40) L 06/25/18 06:54 Hgb 8.5 g/dl (14.0-18.0) L 06/25/18 06:54 Hct 26 % (42-52) L 06/25/18 06:54 MCV 84 fL (80-94) 06/25/18 06:54 MCH 28 pg (27-31) 06/25/18 06:54 MCHC 33 g/dl (31-36) 06/25/18 06:54 RDW 14 % (10.5-15) 06/25/18 06:54 Plt Count 676 10^3/ul (150-450) H D 06/25/18 06:54 MPV 7.0 fL (7.4-10.4) L 06/25/18 06:54 Neut % (Auto) 73.4 % 06/24/18 05:38 Lymph % (Auto) 15.2 % 06/24/18 05:38 [place] % (Auto) 8.5 % 06/24/18 05:38 Eos % (Auto) 1.8 % 06/24/18 05:38 Baso % (Auto) 1.1 % 06/24/18 05:38 Absolute Neuts (auto) 11.1 10^3/ul (1.5-7.7) H 06/24/18 05:38 Absolute Lymphs (auto) 2.3 10^3/ul (1.0-4.8) 06/24/18 05:38 Absolute Monos (auto) 1.3 10^3/ul (0-0.8) H 06/24/18 05:38 Absolute Eos (auto) 0.3 10^3/ul (0-0.6) 06/24/18 05:38 Absolute Basos (auto) 0.2 10^3/ul (0-0.2) 06/24/18 05:38 Absolute Nucleated RBC 0 10^3/ul 06/24/18 05:38 Nucleated RBC % 0 06/24/18 05:38 INR (Anticoag Therapy) 1.37 (0.77-1.02) H 06/25/18 14:02 APTT 30.6 seconds (26.0-36.3) 06/25/18 14:02 Sodium 135 mmol/L (135-145) 06/25/18 06:54 Potassium 4.4 mmol/L (3.5-5.0) 06/25/18 06:54 Chloride 102 mmol/L (101-111) 06/25/18 06:54 Carbon Dioxide 24 mmol/L (22-32) 06/25/18 06:54 Anion Gap 9 mmol/L (2-11) 06/25/18 06:54 BUN 13 mg/dL (6-24) 06/25/18 06:54 Creatinine 1.23 mg/dL (0.67-1.17) H 06/25/18 14:02 Est GFR ( Amer) 71.2 (>60) 06/25/18 14:02 Est GFR (Non-Af Amer) 58.9 (>60) 06/25/18 14:02 BUN/Creatinine Ratio 11.5 (8-20) 06/25/18 06:54 Glucose 117 mg/dL (70-100) H 06/25/18 06:54 POC Glucose (mg/dL) 141 mg/dL (70-100) H 06/25/18 12:00 Hemoglobin A1c 7.6 % (4.0-5.6) H 06/21/18 16:30 Lactic Acid 1.0 mmol/L (0.5-2.0) 06/21/18 19:20 Calcium 8.7 mg/dL (8.6-10.3) 06/25/18 06:54 Magnesium 1.9 mg/dL (1.9-2.7) 06/22/18 07:06 Total Bilirubin 0.40 mg/dL (0.2-1.0) 06/21/18 16:30 AST 22 U/L (13-39) 06/21/18 16:30 ALT 32 U/L (7-52) 06/21/18 16:30 Alkaline Phosphatase 61 U/L (34-104) 06/21/18 16:30 C-Reactive Protein 194.06 mg/L (<8.01) H 06/21/18 16:30 Total Protein 7.6 g/dL (6.4-8.9) 06/21/18 16:30 Albumin 3.4 g/dL (3.2-5.2) 06/21/18 16:30 Globulin 4.2 g/dL (2-4) H 06/21/18 16:30 Albumin/Globulin Ratio 0.8 (1-3) L 06/21/18 16:30 Urine Color Yellow 06/22/18 09:36 Urine Appearance Turbid 06/22/18 09:36 Urine pH 7.0 (5-9) 06/22/18 09:36 Ur Specific [place] 1.010 (1.010-1.030) 06/22/18 09:36 Urine Protein 1+(30 mg/dl) (Negative) A 06/22/18 09:36 Urine Ketones Negative (Negative) 06/22/18 09:36 Urine Blood 1+ (Negative) A 06/22/18 09:36 Urine Nitrate Negative (Negative) 06/22/18 09:36 Urine Bilirubin Negative (Negative) 06/22/18 09:36 Urine Urobilinogen Negative (Negative) 06/22/18 09:36 Ur Leukocyte Esterase 2+ (Negative) A 06/22/18 09:36 Urine WBC (Auto) 3+(>20/hpf) (Absent) A 06/22/18 09:36 Urine RBC (Auto) 3+(>10/hpf) (Absent) A 06/22/18 09:36 Urine Bacteria Absent (Absent) 06/22/18 09:36 Urine Glucose Negative (Negative) 06/22/18 09:36 Vancomycin Trough 20.8 mcg/mL 06/25/18 10:09
[2018-06-25] MEDS: cefTRIAXone(*) 1 GM in NS 0.9% 50 ML* 50 ML IVPB SCH (15:48)
--- NOTE | 2018-06-25 16:36 | PN ---
Progress Note - Progress Note Date of Service: 06/25/18 SOAP: Subjective: CC: foot infection HPI: 67 year old man with bilateral foot injury and infection, treated at [facility] and transferred here; had partial amputation left foot for gangrene and I&D right foot. No fever, rash, or diarrhea. Appetite fair. No pain. Objective: Vital Signs Temp 36.7 C 06/25/18 11:30 Pulse 83 06/25/18 11:30 Resp 16 06/25/18 16:18 BP 133/74 06/25/18 11:30 Pulse Ox 93 06/25/18 11:30 Intake & Output 06/24/18 06/25/18 06/25/18 18:59 06:59 18:59 Intake Total 1300 1431 844 Output Total 1400 2900 1300 Balance -100 -1469 -456 Intake: IV Fluids 1300 401 ABX - PIPERACILLIN 111 NS 100ML, Zosyn 3.375G 100 abx - vanco 290 lr 1200 IVPB 114 ABX - PIPERACILLIN 114 Oral 0 1030 730 Output: Ordonez 1400 2900 1300 Other: # Bowel Movements 0 Gen:awake, no distress HEENT: no thrush Heart:RRR no murmur Lungs:CTA BL Abd:+BS NTND soft Skin: no rash MSK: Left foot partial amptutation; vac present. Right foot wrapped, vac present Laboratory Results - last 24 hr 06/24/18 06/24/18 06/24/18 12:12 17:43 20:21 WBC RBC Hgb Hct MCV MCH MCHC RDW Plt Count MPV INR (Anticoag Therapy) APTT Sodium Potassium Chloride Carbon Dioxide Anion Gap BUN Creatinine Est GFR ( Amer) Est GFR (Non-Af Amer) BUN/Creatinine Ratio Glucose POC Glucose (mg/dL) 147 H 134 H 138 H Calcium Vancomycin Trough 06/25/18 06/25/18 06/25/18 06:54 06:54 10:09 WBC 13.2 H RBC 3.05 L Hgb 8.5 L Hct 26 L MCV 84 MCH 28 MCHC 33 RDW 14 Plt Count 676 H D MPV 7.0 L INR (Anticoag Therapy) APTT Sodium 135 Potassium 4.4 Chloride 102 Carbon Dioxide 24 Anion Gap 9 BUN 13 Creatinine 1.13 Est GFR ( Amer) 78.6 Est GFR (Non-Af Amer) 64.9 BUN/Creatinine Ratio 11.5 Glucose 117 H POC Glucose (mg/dL) Calcium 8.7 Vancomycin Trough 20.8 06/25/18 06/25/18 06/25/18 12:00 14:02 14:02 WBC RBC Hgb Hct MCV MCH MCHC RDW Plt Count MPV INR (Anticoag Therapy) 1.37 H APTT 30.6 Sodium Potassium Chloride Carbon Dioxide Anion Gap BUN Creatinine 1.23 H Est GFR ( Amer) 71.2 Est GFR (Non-Af Amer) 58.9 BUN/Creatinine Ratio Glucose POC Glucose (mg/dL) 141 H Calcium Vancomycin Trough Microbiology 06/21/18 16:30 Aerobic Blood Culture - Preliminary Blood Venous No Growth Day 4 Anaerobic Blood Culture - Preliminary No Growth Day 4 06/23/18 08:45 Anaerobic Culture - Preliminary Wound - Left Bacteroides Species Skin and Soft Tissue MRSA/MSSA (PCR - Final Mrsa Positive S.aureus Positive Gram Stain - Final Wound Culture - Preliminary Escherichia Coli 06/24/18 16:50 Anaerobic Culture - Preliminary Wound No Growth Day 1 06/24/18 16:50 Skin and Soft Tissue MRSA/MSSA (PCR - Final Foot Right Mrsa Positive S.aureus Positive Gram Stain - Final 06/21/18 16:52 Aerobic Blood Culture - Preliminary Blood Venous No Growth Day 3 Anaerobic Blood Culture - Preliminary No Growth Day 3 Assessment: 1. osteomyelitis and gangrene left foot s/p amputation and vac dressing 2. Right foot cellulitis, debridement of necrotic tissu2 3. morbid obesity 4. T2 diabetes mellitus 5. CKD Plan: 1. continue vancomycin goal tr 10-15; will change zosyn to ceftriaxone and PO flagyl. Day 08/04 of IV antibiotics, final cultures pending.
[2018-06-25] MEDS: Vancomycin(*) 1,000 MG in NS 0.9% 250 ML* 250 ML IVPB SCH (16:55)
[2018-06-25] MEDS: metroNIDAZOLE * 500 MG TABLET PO SCH (20:25)
[2018-06-25] MEDS: Atorvastatin* 20 MG TAB PO SCH (20:25)
[2018-06-26] MEDS: Vancomycin(*) 1,000 MG in NS 0.9% 250 ML* 250 ML IVPB SCH ×2 (03:36→15:58)
[2018-06-26] MEDS: oxyCODONE/Acetamin 5/325 MG* TAB PO PRN ×3 (03:36→12:52)
[2018-06-26] MEDS: Clotrimazole TROCHE* 10 MG TROCHE PO SCH ×5 (08:24→21:18)
[2018-06-26] MEDS: Insulin LISPRO* 1 UNITS UNIT SUBCUT SCH ×4 (08:41→21:17)
[2018-06-26] MEDS: Heparin VIAL(*) 5000 UNITS/ML VIAL (FIVE THOUSAND) SUBCUT SCH ×3 (08:41→21:16)
[2018-06-26] MEDS: Tamsulosin CAP* 0.4 MG PO SCH (10:17)
[2018-06-26] MEDS: metroNIDAZOLE * 500 MG TABLET PO SCH ×3 (10:17→21:16)
[2018-06-26] MEDS: Docusate CAP* 100 MG PO SCH ×2 (10:18→21:00)
[2018-06-26] MEDS: Polyethylene Glycol 3350* 17 GM PACKET PO SCH (10:18)
[2018-06-26] MEDS: oxyCODONE TAB* 5 MG TAB PO PRN ×2 (11:33→18:44)
[2018-06-26] MEDS: Nystatin TOP POWDER* 15 GM BTL TOPICAL SCH ×2 (13:24→21:26)
--- NOTE | 2018-06-26 13:39 | PN ---
Progress Note - Progress Note Date of Service: 06/26/18 SOAP: Subjective: []Pt seen at bedside. He feels well without CP, SOB, dizziness, nausea, fever or chills. RLE more painful than left. Objective: [] General: NAD, appears comfortable BL LE: wound vacs functioning well, dressings CDI. Sensation intact to light touch distally. Calves above dressing are without erythema or edema. Assessment: []POD 2 sp debridement right medial forefoot POD 3 sp L midfoot amp Surgeon Dr Baum Plan: []NWB BL LE Keep wound vacs in place Continue abx per ID: vanco, flagyl, ceftriaxone NPO and hold heparin at midnight for OR tomorrow at 13:00 Vital Signs Temp 98.3 F 06/26/18 08:04 Pulse 85 06/26/18 08:04 Resp 16 06/26/18 12:52 BP 152/70 06/26/18 08:04 Pulse Ox 94 06/26/18 09:00 Intake & Output 06/25/18 06/26/18 06/26/18 18:59 06:59 18:59 Intake Total 899 1000 430 Output Total 1300 2200 950 Balance -401 -1200 -520 Intake: IVPB 169 ABX - CEFTRIAXONE 55 ABX - PIPERACILLIN 114 Oral 730 1000 430 Output: Ordonez 1300 2200 950 Other: Date of Last Bowel 06/25/18 Movement # Bowel Movements 1 Estimated Stool Amount Medium Large Laboratory Last Values WBC 13.2 10^3/ul (3.5-10.8) H 06/25/18 06:54 RBC 3.05 10^6/ul (4.00-5.40) L 06/25/18 06:54 Hgb 8.5 g/dl (14.0-18.0) L 06/25/18 06:54 Hct 26 % (42-52) L 06/25/18 06:54 MCV 84 fL (80-94) 06/25/18 06:54 MCH 28 pg (27-31) 06/25/18 06:54 MCHC 33 g/dl (31-36) 06/25/18 06:54 RDW 14 % (10.5-15) 06/25/18 06:54 Plt Count 676 10^3/ul (150-450) H D 06/25/18 06:54 MPV 7.0 fL (7.4-10.4) L 06/25/18 06:54 Neut % (Auto) 73.4 % 06/24/18 05:38 Lymph % (Auto) 15.2 % 06/24/18 05:38 [place] % (Auto) 8.5 % 06/24/18 05:38 Eos % (Auto) 1.8 % 06/24/18 05:38 Baso % (Auto) 1.1 % 06/24/18 05:38 Absolute Neuts (auto) 11.1 10^3/ul (1.5-7.7) H 06/24/18 05:38 Absolute Lymphs (auto) 2.3 10^3/ul (1.0-4.8) 06/24/18 05:38 Absolute Monos (auto) 1.3 10^3/ul (0-0.8) H 06/24/18 05:38 Absolute Eos (auto) 0.3 10^3/ul (0-0.6) 06/24/18 05:38 Absolute Basos (auto) 0.2 10^3/ul (0-0.2) 06/24/18 05:38 Absolute Nucleated RBC 0 10^3/ul 06/24/18 05:38 Nucleated RBC % 0 06/24/18 05:38 INR (Anticoag Therapy) 1.37 (0.77-1.02) H 06/25/18 14:02 APTT 30.6 seconds (26.0-36.3) 06/25/18 14:02 Sodium 135 mmol/L (135-145) 06/25/18 06:54 Potassium 4.4 mmol/L (3.5-5.0) 06/25/18 06:54 Chloride 102 mmol/L (101-111) 06/25/18 06:54 Carbon Dioxide 24 mmol/L (22-32) 06/25/18 06:54 Anion Gap 9 mmol/L (2-11) 06/25/18 06:54 BUN 13 mg/dL (6-24) 06/25/18 06:54 Creatinine 1.23 mg/dL (0.67-1.17) H 06/25/18 14:02 Est GFR ( Amer) 71.2 (>60) 06/25/18 14:02 Est GFR (Non-Af Amer) 58.9 (>60) 06/25/18 14:02 BUN/Creatinine Ratio 11.5 (8-20) 06/25/18 06:54 Glucose 117 mg/dL (70-100) H 06/25/18 06:54 POC Glucose (mg/dL) 225 mg/dL (70-100) H 06/26/18 11:36 Hemoglobin A1c 7.6 % (4.0-5.6) H 06/21/18 16:30 Lactic Acid 1.0 mmol/L (0.5-2.0) 06/21/18 19:20 Calcium 8.7 mg/dL (8.6-10.3) 06/25/18 06:54 Magnesium 1.9 mg/dL (1.9-2.7) 06/22/18 07:06 Total Bilirubin 0.40 mg/dL (0.2-1.0) 06/21/18 16:30 AST 22 U/L (13-39) 06/21/18 16:30 ALT 32 U/L (7-52) 06/21/18 16:30 Alkaline Phosphatase 61 U/L (34-104) 06/21/18 16:30 C-Reactive Protein 194.06 mg/L (<8.01) H 06/21/18 16:30 Total Protein 7.6 g/dL (6.4-8.9) 06/21/18 16:30 Albumin 3.4 g/dL (3.2-5.2) 06/21/18 16:30 Globulin 4.2 g/dL (2-4) H 06/21/18 16:30 Albumin/Globulin Ratio 0.8 (1-3) L 06/21/18 16:30 Urine Color Yellow 06/22/18 09:36 Urine Appearance Turbid 06/22/18 09:36 Urine pH 7.0 (5-9) 06/22/18 09:36 Ur Specific [place] 1.010 (1.010-1.030) 06/22/18 09:36 Urine Protein 1+(30 mg/dl) (Negative) A 06/22/18 09:36 Urine Ketones Negative (Negative) 06/22/18 09:36 Urine Blood 1+ (Negative) A 06/22/18 09:36 Urine Nitrate Negative (Negative) 06/22/18 09:36 Urine Bilirubin Negative (Negative) 06/22/18 09:36 Urine Urobilinogen Negative (Negative) 06/22/18 09:36 Ur Leukocyte Esterase 2+ (Negative) A 06/22/18 09:36 Urine WBC (Auto) 3+(>20/hpf) (Absent) A 06/22/18 09:36 Urine RBC (Auto) 3+(>10/hpf) (Absent) A 06/22/18 09:36 Urine Bacteria Absent (Absent) 06/22/18 09:36 Urine Glucose Negative (Negative) 06/22/18 09:36 Vancomycin Trough 20.8 mcg/mL 06/25/18 10:09
[2018-06-26] MEDS: cefTRIAXone(*) 1 GM in NS 0.9% 50 ML* 50 ML IVPB SCH (15:40)
[2018-06-26] MEDS: Clotrimazole 1% CREAM* 45 GM TOPICAL SCH ×3 (15:44→20:18)
[2018-06-26] MEDS ORDERED: Fluconazole 100 MG TAB* TAB PO ONE (17:08)
--- NOTE | 2018-06-26 17:15 | PN ---
Subjective Date of Service: 06/26/18 Interval History: Pain partly controlled, now R > L. No bowel c/o. Appetite good. Objective Active Medications: Acetaminophen (Tylenol Tab*) 650 mg PO Q6H PRN PRN Reason: FEVER/PAIN Last Admin: 06/22/18 01:26 Dose: 650 mg Atorvastatin Calcium (Lipitor*) 20 mg PO BEDTIME [facility] Last Admin: 06/25/18 20:25 Dose: 20 mg Clotrimazole (Mycelex Hanane*) 10 mg PO FIVE TIMES DAILY [facility] Last Admin: 06/26/18 15:45 Dose: 10 mg Clotrimazole (Clotrimazole 1%*) 1 applic TOPICAL QID [facility] Last Admin: 06/26/18 15:44 Dose: 1 % Dextrose (D50w Syringe 50 Ml*) 12.5 gm IV PUSH .FOR FS < 60 - SS PRN PRN Reason: FS < 60 Docusate Sodium (Colace Cap*) 100 mg PO BID [facility] Last Admin: 06/26/18 10:18 Dose: Not Given Fluconazole (Diflucan 100 Mg Tab*) 200 mg PO ONCE ONE Stop: 06/26/18 17:09 Fluconazole (Diflucan 100 Mg Tab*) 100 mg PO DAILY [facility] Heparin Sodium (Porcine) (Heparin Vial(*)) 5,000 units SUBCUT Q8HR [facility] Stop: 06/26/18 23:59 Last Admin: 06/26/18 15:45 Dose: 5,000 units Vancomycin HCl 1,000 mg/ (Sodium Chloride) 250 mls @ 166.667 mls/hr IVPB Q12H [facility] Last Admin: 06/26/18 15:58 Dose: 166.667 mls/hr Ceftriaxone Sodium 1 gm/ (Sodium Chloride) 50 mls @ 200 mls/hr IVPB Q24H [facility] Last Admin: 06/26/18 15:40 Dose: 200 mls/hr Insulin Human Lispro (Humalog*) 0 units SUBCUT ACHS [facility]; Protocol Last Admin: 06/26/18 12:52 Dose: 6 units Meclizine HCl (Antivert Tab*) 25 mg PO Q8HR PRN PRN Reason: DIZZINESS Metronidazole (Flagyl) 500 mg PO TID [facility] Last Admin: 06/26/18 15:44 Dose: 500 mg Morphine Sulfate (Morphine Vial*) 2 mg IV Q3H PRN PRN Reason: PAIN - MILD Last Admin: 06/24/18 16:05 Dose: 2 mg Nystatin (Nystatin Top Powder*) 1 applic TOPICAL BID [facility] Last Admin: 06/26/18 13:24 Dose: Not Given Ondansetron HCl (Zofran Inj*) 4 mg IV Q6H PRN PRN Reason: NAUSEA Oxycodone HCl (Oxycontin(*)) 20 mg PO Q12HR [facility] Oxycodone HCl (Roxycodone Tab*) 10 mg PO Q4H PRN PRN Reason: PAIN Pharmacy Consult (Vancomycin Per Pharmacy*) 1 note FOLLOW UP .VANC PER PHARMACY [facility] Pharmacy Profile Note (Vancomycin Trough Check) 1 note FOLLOW UP 1430 ONE Stop: 06/27/18 14:31 Polyethylene Glycol/Electrolytes (Miralax*) 17 gm PO DAILY [facility] Last Admin: 06/26/18 10:18 Dose: Not Given Tamsulosin HCl (Flomax Cap*) 0.4 mg PO DAILY [facility] Last Admin: 06/26/18 10:17 Dose: 0.4 mg Vital Signs - 8 hr 06/26/18 06/26/18 06/26/18 11:33 12:52 13:50 Temperature 97.3 F Pulse Rate 78 Respiratory 18 16 18 Rate Blood Pressure 148/80 (mmHg) O2 Sat by Pulse 95 Oximetry Oxygen Devices in Use Now: None Appearance: Alert, partly up in bed. In fair spirits. Looks comfortable. Eyes: No Scleral Icterus Neck: NL Appearance and Movements; NL JVP, No Thyroid Enlargement, Masses Respiratory: Symmetrical Chest Expansion and Respiratory Effort, Clear to Percussion Cardiovascular: NL Sounds; No Murmurs; No JVD, RRR, No Edema, - Extremities: - - Both feet bandaged. Skin: No Rash or Ulcers, No Nodules or Sclerosis, - - Both feet bandaged. Neurological: Alert and Oriented x 3, NL Sensation Result Diagrams: 06/25/18 06:54 06/25/18 14:02 Microbiology and Other Data: Microbiology 06/21/18 20:05 Nasal Screen MRSA (PCR) - Final Nasal Mrsa Detected 06/21/18 17:25 Skin and Soft Tissue MRSA/MSSA (PCR - Final Foot Left Mrsa Negative S.aureus Negative Gram Stain - Final Assess/Plan/Problems-Billing Assessment: 67 yo m with h/o DM, CKD, HTN who suffered from multiple b/l foot wounds after trying to break up a dog fight 06/03/18. Transferred to [facility] and had b/l foot surgery on 06/04/18 with left forth toe amputation and multiple wound sutured and left great toe pinned. Transferred to [facility] on 06/21/18 and back to our ED the same day after staff at [facility] noted gangrene on left 3rd toe - Patient Problems (1) Osteomyelitis Status: Acute Code(s): M86.9 - OSTEOMYELITIS, UNSPECIFIED SNOMED Code(s): 00938468 Comment: of left 3rd and forth metatarsal , s/p left midfoot amputation on 02/01-now with Vac dressing in place S/p r foot debridement and Vac placement on 06/24/18 Cont ceftr/metro/anc. Cx positive for E. coli and MRSA,bacterioides. ID following Oycodone SR starting 06/26 PM. (2) DM2 (diabetes mellitus, type 2) Current Visit: Yes Status: Acute Comment: Restart glipizide 06/26 PM, cont ISS. Metformin on hold. (3) CKD (chronic kidney disease) stage 3, GFR 30-59 ml/min Current Visit: Yes Status: Acute Code(s): N18.3 - CHRONIC KIDNEY DISEASE, STAGE 3 (MODERATE) SNOMED Code(s): 061561673 Comment: due to DM, plan BMP 06/28. (4) Morbid obesity Current Visit: Yes Status: Acute Code(s): E66.01 - MORBID (SEVERE) OBESITY DUE TO EXCESS CALORIES SNOMED Code(s): 117944313 (5) Gangrene of foot Current Visit: Yes Status: Acute Code(s): I96 - GANGRENE, NOT ELSEWHERE CLASSIFIED SNOMED Code(s): 355214850 Comment: BMI 47.0. (6) HTN (hypertension) Current Visit: Yes Status: Acute Code(s): I10 - ESSENTIAL (PRIMARY) HYPERTENSION SNOMED Code(s): 83716235 Comment: Lisinopril on hold. Status and Disposition: Inpatient
[2018-06-26] MEDS: glipiZIDE TAB* 5 MG PO SCH (18:43)
[2018-06-26] MEDS: oxyCODONE SR TAB(*) 20 MG TAB.SR PO SCH (21:15)
[2018-06-26] MEDS: Atorvastatin* 20 MG TAB PO SCH (21:16)
[2018-06-27] MEDS: Vancomycin(*) 1,000 MG in NS 0.9% 250 ML* 250 ML IVPB SCH ×2 (03:41→16:21)
[2018-06-27] MEDS: Clotrimazole TROCHE* 10 MG TROCHE PO SCH ×5 (06:23→21:02)
[2018-06-27 07:04] LABS: INR 1.29 (0.77-1.02)
[2018-06-27 07:14] LABS: ABS Basophils 0.1 10^3/ul (0-0.2); ABS Eosinophils 0.4 10^3/ul (0-0.6); ABS Lymphocytes 3.3 10^3/ul (1.0-4.8); ABS Neutrophils 6.1 10^3/ul (1.5-7.7); ABS Nucleated RBC 0 10^3/ul; BUN/Creatinine Ratio 14.8 (8-20); EGFR African American 71.9 (>60); EGFR Non-African American 59.4 (>60); Eosinophil % 3.4 %; Hematocrit 28 % (42-52); Hemoglobin 9.1 g/dl (14.0-18.0); Lymphocyte % 30.3 %; Mean Corpuscular HGB Conc 33 g/dl (31-36); Mean Corpuscular Hemoglobin 27 pg (27-31); Mean Corpuscular Volume 82 fL (80-94); Mean Platelet Volume 7.4 fL (7.4-10.4); Nucleated Red Blood Cells % 0; Platelet Count 670 10^3/ul (150-450); Red Blood Count 3.36 10^6/ul (4.00-5.40); Red Cell Distribution Width 14 % (10.5-15)
[2018-06-27] MEDS: Insulin LISPRO* 1 UNITS UNIT SUBCUT SCH ×4 (08:18→21:52)
[2018-06-27] MEDS: glipiZIDE TAB* 5 MG PO SCH ×2 (08:24→17:28)
[2018-06-27] MEDS: oxyCODONE SR TAB(*) 20 MG TAB.SR PO SCH ×2 (08:29→21:01)
[2018-06-27] MEDS: Docusate CAP* 100 MG PO SCH (08:29)
[2018-06-27] MEDS: Tamsulosin CAP* 0.4 MG PO SCH (08:29)
[2018-06-27] MEDS: Polyethylene Glycol 3350* 17 GM PACKET PO SCH (08:30)
[2018-06-27] MEDS: Fluconazole 100 MG TAB* TAB PO SCH (08:30)
[2018-06-27] MEDS: Nystatin TOP POWDER* 15 GM BTL TOPICAL SCH ×2 (08:30→21:52)
[2018-06-27] MEDS: metroNIDAZOLE * 500 MG TABLET PO SCH ×3 (08:30→21:02)
[2018-06-27] MEDS: Clotrimazole 1% CREAM* 45 GM TOPICAL SCH ×4 (09:50→21:07)
--- NOTE | 2018-06-27 12:04 | PN ---
Progress Note - Progress Note Date of Service: 06/27/18 SOAP: Subjective: []Pt seen at bedside. He feels well without CP, SOB, dizziness, nausea. Riight LE remains more painful than left. Objective: []General: NAD, appears comfortable BL LE: wound vacs functioning well, dressings CDI. Sensation intact to light touch distally. Calves above dressing are without erythema or edema. Assessment: []POD 3 sp debridement right medial forefoot POD 4 sp L midfoot amp Surgeon Dr Baum Plan: []NWB BL LE Keep wound vacs in place Continue abx per ID: vanco, flagyl, ceftriaxone NPO and hold heparin OR today with Dr Baum for vac changes/ further debridement as necessary, patient and family aware and agreeable Vital Signs Temp 98.3 F 06/27/18 07:55 Pulse 80 06/27/18 07:55 Resp 20 06/27/18 10:48 BP 154/78 06/27/18 07:55 Pulse Ox 93 06/27/18 08:00 Intake & Output 06/26/18 06/27/18 06/27/18 18:59 06:59 18:59 Intake Total 430 150 Output Total 2300 1700 Balance -1870 -1550 Intake: Oral 430 150 Output: Ordonez 2300 1700 Other: Date of Last Bowel 06/26/18 Movement # Bowel Movements 1 Estimated Stool Amount Small Laboratory Last Values WBC 11.0 10^3/ul (3.5-10.8) H 06/27/18 06:40 RBC 3.36 10^6/ul (4.00-5.40) L 06/27/18 06:40 Hgb 9.1 g/dl (14.0-18.0) L 06/27/18 06:40 Hct 28 % (42-52) L 06/27/18 06:40 MCV 82 fL (80-94) 06/27/18 06:40 MCH 27 pg (27-31) 06/27/18 06:40 MCHC 33 g/dl (31-36) 06/27/18 06:40 RDW 14 % (10.5-15) 06/27/18 06:40 Plt Count 670 10^3/ul (150-450) H 06/27/18 06:40 MPV 7.4 fL (7.4-10.4) 06/27/18 06:40 Neut % (Auto) 56.0 % 06/27/18 06:40 Lymph % (Auto) 30.3 % 06/27/18 06:40 [place] % (Auto) 9.1 % 06/27/18 06:40 Eos % (Auto) 3.4 % 06/27/18 06:40 Baso % (Auto) 1.2 % 06/27/18 06:40 Absolute Neuts (auto) 6.1 10^3/ul (1.5-7.7) 06/27/18 06:40 Absolute Lymphs (auto) 3.3 10^3/ul (1.0-4.8) 06/27/18 06:40 Absolute Monos (auto) 1.0 10^3/ul (0-0.8) H 06/27/18 06:40 Absolute Eos (auto) 0.4 10^3/ul (0-0.6) 06/27/18 06:40 Absolute Basos (auto) 0.1 10^3/ul (0-0.2) 06/27/18 06:40 Absolute Nucleated RBC 0 10^3/ul 06/27/18 06:40 Nucleated RBC % 0 06/27/18 06:40 INR (Anticoag Therapy) 1.29 (0.77-1.02) H 06/27/18 06:40 APTT 30.6 seconds (26.0-36.3) 06/25/18 14:02 Sodium 138 mmol/L (135-145) 06/27/18 06:40 Potassium 4.0 mmol/L (3.5-5.0) 06/27/18 06:40 Chloride 104 mmol/L (101-111) 06/27/18 06:40 Carbon Dioxide 26 mmol/L (22-32) 06/27/18 06:40 Anion Gap 8 mmol/L (2-11) 06/27/18 06:40 BUN 18 mg/dL (6-24) 06/27/18 06:40 Creatinine 1.22 mg/dL (0.67-1.17) H 06/27/18 06:40 Est GFR ( Amer) 71.9 (>60) 06/27/18 06:40 Est GFR (Non-Af Amer) 59.4 (>60) 06/27/18 06:40 BUN/Creatinine Ratio 14.8 (8-20) 06/27/18 06:40 Glucose 82 mg/dL (70-100) 06/27/18 06:40 POC Glucose (mg/dL) 119 mg/dL (70-100) H 06/27/18 11:34 Hemoglobin A1c 7.6 % (4.0-5.6) H 06/21/18 16:30 Lactic Acid 1.0 mmol/L (0.5-2.0) 06/21/18 19:20 Calcium 9.0 mg/dL (8.6-10.3) 06/27/18 06:40 Magnesium 1.9 mg/dL (1.9-2.7) 06/22/18 07:06 Total Bilirubin 0.40 mg/dL (0.2-1.0) 06/21/18 16:30 AST 22 U/L (13-39) 06/21/18 16:30 ALT 32 U/L (7-52) 06/21/18 16:30 Alkaline Phosphatase 61 U/L (34-104) 06/21/18 16:30 C-Reactive Protein 194.06 mg/L (<8.01) H 06/21/18 16:30 Total Protein 7.6 g/dL (6.4-8.9) 06/21/18 16:30 Albumin 3.4 g/dL (3.2-5.2) 06/21/18 16:30 Globulin 4.2 g/dL (2-4) H 06/21/18 16:30 Albumin/Globulin Ratio 0.8 (1-3) L 06/21/18 16:30 Urine Color Yellow 06/22/18 09:36 Urine Appearance Turbid 06/22/18 09:36 Urine pH 7.0 (5-9) 06/22/18 09:36 Ur Specific [place] 1.010 (1.010-1.030) 06/22/18 09:36 Urine Protein 1+(30 mg/dl) (Negative) A 06/22/18 09:36 Urine Ketones Negative (Negative) 06/22/18 09:36 Urine Blood 1+ (Negative) A 06/22/18 09:36 Urine Nitrate Negative (Negative) 06/22/18 09:36 Urine Bilirubin Negative (Negative) 06/22/18 09:36 Urine Urobilinogen Negative (Negative) 06/22/18 09:36 Ur Leukocyte Esterase 2+ (Negative) A 06/22/18 09:36 Urine WBC (Auto) 3+(>20/hpf) (Absent) A 06/22/18 09:36 Urine RBC (Auto) 3+(>10/hpf) (Absent) A 06/22/18 09:36 Urine Bacteria Absent (Absent) 06/22/18 09:36 Urine Glucose Negative (Negative) 06/22/18 09:36 Vancomycin Trough 20.8 mcg/mL 06/25/18 10:09
[2018-06-27] MEDS ORDERED: Bupivacaine 0.5%* 50 ML VIAL ONE (12:24)
[2018-06-27] MEDS ORDERED: Lidocaine 2% PF* 10 ML AMP ONE (12:24)
[2018-06-27] MEDS ORDERED: fentaNYL* 50 MCG/ML 2 ML VIAL (100 MCG VIAL) ONE ×2 (12:45→13:43)
[2018-06-27] MEDS ORDERED: Midazolam* 1 MG/ML 2 ML VIAL (2 MG) ONE (12:45)
[2018-06-27] MEDS ORDERED: Lidocaine 2% PF * 5 ML VIAL ONE (12:46)
[2018-06-27] MEDS ORDERED: Propofol* 10 MG/ML 20 ML BTL ONE (12:46)
[2018-06-27] MEDS ORDERED: Naloxone* 0.4 MG/ML 1 ML VIAL IV PRN (12:58)
[2018-06-27] MEDS ORDERED: Metoclopramide IV* 5 MG/ML 2 ML VIAL ONE (13:27)
[2018-06-27] MEDS ORDERED: Ondansetron INJ* 2 MG/ML VIAL ONE (13:27)
[2018-06-27] MEDS ORDERED: Phenylephrine 40 MCG/ML SYRINGE ONE (13:44)
[2018-06-27] MEDS ORDERED: Vancomycin Trough Check NOTE FOLLOW UP ONE (14:30)
[2018-06-27] MEDS ORDERED: HYDROmorphone INJ1* 1 MG/ML SYRINGE ONE (14:42)
[2018-06-27] MEDS: HYDROmorphone INJ1* 1 MG/ML SYRINGE IV PRN ×2 (14:43→14:53)
[2018-06-27] MEDS: oxyCODONE TAB* 5 MG TAB PO PRN ×2 (15:34→21:01)
[2018-06-27] MEDS: cefTRIAXone(*) 1 GM in NS 0.9% 50 ML* 50 ML IVPB SCH (15:53)
--- NOTE | 2018-06-27 16:03 | OP ---
DATE OF OPERATION: 06/27/18 - ROOM #339 DATE OF : 52 ATTENDING SURGEON: Kanu Baum MD BLOOD BANK ORDER CONTROL CLERK: Anna Muir PA-C. PRE-OP DIAGNOSIS: Bilateral forefoot and midfoot infection and necrosis. POST-OP DIAGNOSIS: Bilateral forefoot and midfoot infection and necrosis. OPERATIVE PROCEDURE: Secondary closure left hind foot amputation with navicular excision and right side debridement, medial column wound, partial closure and VAC placement. DESCRIPTION OF PROCEDURE: The patient was taken to the operating room where the left foot was first addressed. We did a 3 L lavage of the soft tissues and cleansed the ragged skin edges with the 10 blade. The navicula itself was exposed periosteally and removed from the wound. This allowed us to close the wound top to bottom. We used the 0-Monocryl sutures deep and then 2-0 Prolene for the skin after the tourniquet was dropped to ensure hemostasis. Deep cultures had been sent. A plaster dressing was applied. The right side had its VAC removed and then debrided, Irrigated thoroughly and inspected for any signs of deep infection or necrosis. We then closed the plantar flap to the subcu, the mid portion of the wound with some Monocryl sutures partially closing the wound. We then placed a vacuum-assisted dressing along the medial wound sealing this with Ioban and applying to suction machine. The patient tolerated both these procedures well, [id number]/[facility] #: [id number] [facility]
--- NOTE | 2018-06-27 16:26 | PN ---
Subjective Date of Service: 06/27/18 Interval History: Pain control OK, appetite OK. Objective Active Medications: Acetaminophen (Tylenol Tab*) 650 mg PO Q6H PRN PRN Reason: FEVER/PAIN Last Admin: 06/22/18 01:26 Dose: 650 mg Atorvastatin Calcium (Lipitor*) 20 mg PO BEDTIME [facility] Last Admin: 06/26/18 21:16 Dose: 20 mg Clotrimazole (Mycelex Hanane*) 10 mg PO FIVE TIMES DAILY [facility] Last Admin: 06/27/18 15:35 Dose: 10 mg Clotrimazole (Clotrimazole 1%*) 1 applic TOPICAL QID [facility] Last Admin: 06/27/18 13:00 Dose: Not Given Dextrose (D50w Syringe 50 Ml*) 12.5 gm IV PUSH .FOR FS < 60 - SS PRN PRN Reason: FS < 60 Docusate Sodium (Colace Cap*) 100 mg PO BID [facility] Last Admin: 06/27/18 08:29 Dose: 100 mg Fluconazole (Diflucan 100 Mg Tab*) 100 mg PO DAILY [facility] Last Admin: 06/27/18 08:30 Dose: 100 mg Glipizide (Glucotrol Tab*) 10 mg PO 0800,1700 [facility] Last Admin: 06/27/18 08:24 Dose: Not Given Heparin Sodium (Porcine) (Heparin Vial(*)) 5,000 units SUBCUT Q8HR [facility] Hydromorphone HCl (Dilaudid Inj1s*) 0.5 mg IV Q10M PRN PRN Reason: PAIN - SEVERE Last Admin: 06/27/18 14:53 Dose: 0.5 mg Vancomycin HCl 1,000 mg/ (Sodium Chloride) 250 mls @ 166.667 mls/hr IVPB Q12H [facility] Last Admin: 06/27/18 16:21 Dose: 166.667 mls/hr Ceftriaxone Sodium 1 gm/ (Sodium Chloride) 50 mls @ 200 mls/hr IVPB Q24H [facility] Last Admin: 06/27/18 15:53 Dose: 200 mls/hr Insulin Human Lispro (Humalog*) 0 units SUBCUT ACHS [facility]; Protocol Last Admin: 06/27/18 11:53 Dose: Not Given Meclizine HCl (Antivert Tab*) 25 mg PO Q8HR PRN PRN Reason: DIZZINESS Metronidazole (Flagyl) 500 mg PO TID [facility] Last Admin: 06/27/18 15:35 Dose: 500 mg Morphine Sulfate (Morphine Vial*) 2 mg IV Q3H PRN PRN Reason: PAIN - MILD Last Admin: 06/24/18 16:05 Dose: 2 mg Naloxone HCl (Narcan*) 0.08 mg IV Q2M PRN PRN Reason: severe induced resp depression Nystatin (Nystatin Top Powder*) 1 applic TOPICAL BID [facility] Last Admin: 06/27/18 08:30 Dose: Not Given Ondansetron HCl (Zofran Inj*) 4 mg IV Q6H PRN PRN Reason: NAUSEA Oxycodone HCl (Oxycontin(*)) 20 mg PO Q12HR [facility] Last Admin: 06/27/18 08:29 Dose: 20 mg Oxycodone HCl (Roxycodone Tab*) 10 mg PO Q4H PRN PRN Reason: PAIN Last Admin: 06/27/18 15:34 Dose: 10 mg Pharmacy Consult (Vancomycin Per Pharmacy*) 1 note FOLLOW UP .VANC PER PHARMACY [facility] Polyethylene Glycol/Electrolytes (Miralax*) 17 gm PO DAILY [facility] Last Admin: 06/27/18 08:30 Dose: Not Given Tamsulosin HCl (Flomax Cap*) 0.4 mg PO DAILY [facility] Last Admin: 06/27/18 08:29 Dose: 0.4 mg Vital Signs - 8 hr 06/27/18 06/27/18 06/27/18 08:29 10:48 12:23 Temperature 99.0 F Pulse Rate 87 Respiratory 18 20 16 Rate Blood Pressure 161/77 (mmHg) O2 Sat by Pulse 95 Oximetry 06/27/18 06/27/18 06/27/18 14:23 14:24 14:25 Temperature 98.4 F Pulse Rate 101 98 98 Respiratory 18 28 Rate Blood Pressure 142/82 168/75 (mmHg) O2 Sat by Pulse 99 98 96 Oximetry 06/27/18 06/27/18 06/27/18 14:31 14:37 14:41 Temperature Pulse Rate 105 105 107 Respiratory 29 24 32 Rate Blood Pressure 150/81 111/65 126/56 (mmHg) O2 Sat by Pulse 98 97 96 Oximetry 06/27/18 06/27/18 06/27/18 14:43 14:46 14:53 Temperature Pulse Rate 106 Respiratory 20 33 18 Rate Blood Pressure 126/65 (mmHg) O2 Sat by Pulse 95 Oximetry 06/27/18 06/27/18 06/27/18 15:00 15:01 15:34 Temperature Pulse Rate 101 98 Respiratory 21 22 20 Rate Blood Pressure 148/66 (mmHg) O2 Sat by Pulse 95 96 Oximetry 06/27/18 15:59 Temperature 97.9 F Pulse Rate 102 Respiratory 16 Rate Blood Pressure 150/72 (mmHg) O2 Sat by Pulse 95 Oximetry Oxygen Devices in Use Now: Nasal Cannula Appearance: Alert, supine in bed. Neutral affect. Looks comfortable. Eyes: No Scleral Icterus Extremities: No Edema, No Clubbing, Cyanosis, - - Both feet wrapped. WoundVac on R foot Neurological: Alert and Oriented x 3, NL Sensation Result Diagrams: 06/27/18 06:40 06/27/18 06:40 Microbiology and Other Data: Microbiology 06/21/18 20:05 Nasal Screen MRSA (PCR) - Final Nasal Mrsa Detected 06/21/18 17:25 Skin and Soft Tissue MRSA/MSSA (PCR - Final Foot Left Mrsa Negative S.aureus Negative Gram Stain - Final Assess/Plan/Problems-Billing Assessment: 67 yo m with h/o DM, CKD, HTN who suffered from multiple b/l foot wounds after trying to break up a dog fight 06/03/18. Transferred to [facility] and had b/l foot surgery on 06/04/18 with left forth toe amputation and multiple wound sutured and left great toe pinned. Transferred to [facility] on 06/21/18 and back to our ED the same day after staff at [facility] noted gangrene on left 3rd toe - Patient Problems (1) Osteomyelitis Status: Acute Code(s): M86.9 - OSTEOMYELITIS, UNSPECIFIED SNOMED Code(s): 07246147 Comment: of left 3rd and forth metatarsal , s/p left midfoot amputation on 02/01-now with Vac dressing in place S/p r foot debridement and Vac placement on 06/24/18, repeat debridement with closure L foot wound 06/27/18. Cont ceftr/metro/anc. Cx positive for E. coli and MRSA,bacterioides. ID following Oycodone SR starting 313 PM. (2) DM2 (diabetes mellitus, type 2) Current Visit: Yes Status: Acute Comment: Glipizide reduced to 5 mg bid PM, cont ISS. Metformin on hold. (3) CKD (chronic kidney disease) stage 3, GFR 30-59 ml/min Current Visit: Yes Status: Acute Code(s): N18.3 - CHRONIC KIDNEY DISEASE, STAGE 3 (MODERATE) SNOMED Code(s): 327955905 Comment: due to DM, plan BMP 06/28. (4) Morbid obesity Current Visit: Yes Status: Acute Code(s): E66.01 - MORBID (SEVERE) OBESITY DUE TO EXCESS CALORIES SNOMED Code(s): 979201628 (5) Gangrene of foot Current Visit: Yes Status: Acute Code(s): I96 - GANGRENE, NOT ELSEWHERE CLASSIFIED SNOMED Code(s): 258646542 Comment: BMI 47.0. (6) HTN (hypertension) Current Visit: Yes Status: Acute Code(s): I10 - ESSENTIAL (PRIMARY) HYPERTENSION SNOMED Code(s): 08149178 Comment: Lisinopril on hold. Status and Disposition: Inpatient
[2018-06-27] MEDS ORDERED: glipiZIDE TAB* 5 MG ONE (17:27)
[2018-06-27] MEDS: Morphine 4 MG/ML VIAL (1 ml) 4 MG/ML VIAL IV PRN (19:07)
[2018-06-27] MEDS: Heparin VIAL(*) 5000 UNITS/ML VIAL (FIVE THOUSAND) SUBCUT SCH (21:02)
[2018-06-27] MEDS: Atorvastatin* 20 MG TAB PO SCH (21:02)
[2018-06-28] MEDS: Vancomycin(*) 1,000 MG in NS 0.9% 250 ML* 250 ML IVPB SCH ×2 (03:20→17:06)
[2018-06-28] MEDS: oxyCODONE TAB* 5 MG TAB PO PRN ×5 (03:30→21:35)
[2018-06-28 06:16] LABS: ABS Basophils 0.1 10^3/ul (0-0.2); ABS Eosinophils 0.3 10^3/ul (0-0.6); ABS Lymphocytes 2.2 10^3/ul (1.0-4.8); ABS Monocytes 1.5 10^3/ul (0-0.8); ABS Neutrophils 8.5 10^3/ul (1.5-7.7); ABS Nucleated RBC 0 10^3/ul; Eosinophil % 2.5 %; Hematocrit 26 % (36-46); Hemoglobin 8.6 g/dL (14.0-18.0); Lymphocyte % 17.4 %; Mean Corpuscular HGB Conc 33 g/dL (31-36); Mean Corpuscular Hemoglobin 27 pg (27-31); Mean Corpuscular Volume 83 fL (80-94); Mean Platelet Volume 7.5 fL (7.4-10.4); Nucleated Red Blood Cells % 0; Platelet Count 601 10^3/uL (150-450); Red Blood Count 3.19 10^6 /uL (4.18-5.48); Red Cell Distribution Width 14 % (10.5-15); White Blood Count 12.5 10^3/uL (3.5-10.8)
[2018-06-28] MEDS: Clotrimazole TROCHE* 10 MG TROCHE PO SCH ×5 (06:20→21:36)
[2018-06-28] MEDS: Heparin VIAL(*) 5000 UNITS/ML VIAL (FIVE THOUSAND) SUBCUT SCH ×3 (06:27→21:37)
[2018-06-28] MEDS: glipiZIDE TAB* 5 MG PO SCH ×2 (08:54→17:07)
[2018-06-28] MEDS: Tamsulosin CAP* 0.4 MG PO SCH (08:54)
[2018-06-28] MEDS: metroNIDAZOLE * 500 MG TABLET PO SCH ×3 (08:54→21:35)
[2018-06-28] MEDS: oxyCODONE SR TAB(*) 20 MG TAB.SR PO SCH ×2 (08:54→21:36)
[2018-06-28] MEDS: Fluconazole 100 MG TAB* TAB PO SCH (08:54)
[2018-06-28] MEDS: Polyethylene Glycol 3350* 17 GM PACKET PO SCH ×2 (08:55→21:36)
[2018-06-28] MEDS: Insulin LISPRO* 1 UNITS UNIT SUBCUT SCH ×4 (09:29→21:36)
--- NOTE | 2018-06-28 10:08 | PN ---
Progress Note - Progress Note Date of Service: 06/28/18 SOAP: Subjective: [] Sedrick was seen OOB in chair with legs elevated. Wound vac running for right leg. Comfortable, offers no new complaints. Objective: [] Vital Signs Temp 100 F 06/28/18 08:10 Pulse 84 06/28/18 08:10 Resp 16 06/28/18 08:54 BP 142/78 06/28/18 08:10 Pulse Ox 93 06/28/18 08:10 Intake & Output 06/27/18 06/28/18 06/28/18 18:59 06:59 18:59 Intake Total 640 855 Output Total 1250 Balance 640 -395 Intake: IV Fluids 400 305 0.45% NS 400 NS (0.9%) 30 abx - vanco 275 Oral 240 550 Output: Ordonez 1250 Other: # Bowel Movements 0 Estimated Stool Amount Medium Laboratory Results - last 24 hr 06/27/18 06/27/18 06/27/18 11:34 14:36 16:17 WBC RBC Hgb Hct MCV MCH MCHC RDW Plt Count MPV Neut % (Auto) Lymph % (Auto) [place] % (Auto) Eos % (Auto) Baso % (Auto) Absolute Neuts (auto) Absolute Lymphs (auto) Absolute Monos (auto) Absolute Eos (auto) Absolute Basos (auto) Absolute Nucleated RBC Nucleated RBC % POC Glucose (mg/dL) 119 H 110 H Vancomycin Trough 18.2 06/27/18 06/28/18 06/28/18 21:07 05:35 08:04 WBC 12.5 H RBC 3.19 L Hgb 8.6 L Hct 26 L MCV 83 MCH 27 MCHC 33 RDW 14 Plt Count 601 H D MPV 7.5 Neut % (Auto) 67.6 Lymph % (Auto) 17.4 [place] % (Auto) 11.6 Eos % (Auto) 2.5 Baso % (Auto) 0.9 Absolute Neuts (auto) 8.5 H Absolute Lymphs (auto) 2.2 Absolute Monos (auto) 1.5 H Absolute Eos (auto) 0.3 Absolute Basos (auto) 0.1 Absolute Nucleated RBC 0 Nucleated RBC % 0 POC Glucose (mg/dL) 203 H 134 H Vancomycin Trough Wound vac running well right LE, no drainage on dressings Left LE DAWSON/dressings are clean ,dry and intact Assessment: []s/p secondary closure, removal navicular left LE necosis and debridement with partial closure, application wound vac right LE POD #1 Plan: []NWB BLE Heparin for DVT prophylaxis IV Vanco and ceftriaxone to OR 07/[address] Cardona for repeat debridement, possible closure right foot wound
--- NOTE | 2018-06-28 10:35 | PN ---
Subjective Date of Service: 06/28/18 Interval History: Pain control OK. BM 2 days ago. Appetite good. No new c/o. Objective Active Medications: Acetaminophen (Tylenol Tab*) 650 mg PO Q6H PRN PRN Reason: FEVER/PAIN Last Admin: 06/22/18 01:26 Dose: 650 mg Atorvastatin Calcium (Lipitor*) 20 mg PO BEDTIME [facility] Last Admin: 06/27/18 21:02 Dose: 20 mg Clotrimazole (Mycelex Hanane*) 10 mg PO FIVE TIMES DAILY [facility] Last Admin: 06/28/18 10:05 Dose: 10 mg Clotrimazole (Clotrimazole 1%*) 1 applic TOPICAL QID [facility] Last Admin: 06/27/18 21:07 Dose: 1 applic Dextrose (D50w Syringe 50 Ml*) 12.5 gm IV PUSH .FOR FS < 60 - SS PRN PRN Reason: FS < 60 Fluconazole (Diflucan 100 Mg Tab*) 100 mg PO DAILY [facility] Last Admin: 06/28/18 08:54 Dose: 100 mg Glipizide (Glucotrol Tab*) 5 mg PO 0800,1700 [facility] Last Admin: 06/28/18 08:54 Dose: 5 mg Heparin Sodium (Porcine) (Heparin Vial(*)) 5,000 units SUBCUT Q8HR [facility] Last Admin: 06/28/18 06:27 Dose: 5,000 units Vancomycin HCl 1,000 mg/ (Sodium Chloride) 250 mls @ 166.667 mls/hr IVPB Q12H [facility] Last Admin: 06/28/18 03:20 Dose: 166.667 mls/hr Ceftriaxone Sodium 1 gm/ (Sodium Chloride) 50 mls @ 200 mls/hr IVPB Q24H [facility] Last Admin: 06/27/18 15:53 Dose: 200 mls/hr Insulin Human Lispro (Humalog*) 0 units SUBCUT ACHS [facility]; Protocol Last Admin: 06/28/18 09:29 Dose: 2 units Meclizine HCl (Antivert Tab*) 25 mg PO Q8HR PRN PRN Reason: DIZZINESS Metronidazole (Flagyl) 500 mg PO TID [facility] Last Admin: 06/28/18 08:54 Dose: 500 mg Morphine Sulfate (Morphine Vial*) 2 mg IV Q3H PRN PRN Reason: PAIN - MILD Last Admin: 06/27/18 19:07 Dose: 2 mg Nystatin (Nystatin Top Powder*) 1 applic TOPICAL BID [facility] Last Admin: 06/27/18 21:52 Dose: 1 applic Ondansetron HCl (Zofran Inj*) 4 mg IV Q6H PRN PRN Reason: NAUSEA Oxycodone HCl (Oxycontin(*)) 20 mg PO Q12HR [facility] Last Admin: 06/28/18 08:54 Dose: 20 mg Oxycodone HCl (Roxycodone Tab*) 10 mg PO Q4H PRN PRN Reason: PAIN Last Admin: 06/28/18 08:54 Dose: 10 mg Pharmacy Consult (Vancomycin Per Pharmacy*) 1 note FOLLOW UP .VANC PER PHARMACY [facility] Polyethylene Glycol/Electrolytes (Miralax*) 17 gm PO DAILY [facility] Last Admin: 06/28/18 08:55 Dose: Not Given Tamsulosin HCl (Flomax Cap*) 0.4 mg PO DAILY [facility] Last Admin: 06/28/18 08:54 Dose: 0.4 mg Vital Signs - 8 hr 06/28/18 06/28/18 06/28/18 03:18 03:30 03:43 Temperature 100.2 F Pulse Rate 81 102 Respiratory 24 20 24 Rate Blood Pressure 146/82 172/80 (mmHg) O2 Sat by Pulse 90 95 Oximetry 06/28/18 06/28/18 06/28/18 06:50 08:09 08:10 Temperature 100 F 100 F Pulse Rate 84 84 Respiratory 18 18 18 Rate Blood Pressure 142/78 142/78 (mmHg) O2 Sat by Pulse 93 93 Oximetry 06/28/18 08:54 Temperature Pulse Rate Respiratory 16 Rate Blood Pressure (mmHg) O2 Sat by Pulse Oximetry Oxygen Devices in Use Now: None Appearance: Alert, supine in bed. In good spirits. looks comfortable. Eyes: No Scleral Icterus Extremities: No Edema, No Clubbing, Cyanosis, - - Both feet wrapped. Skin: No Rash or Ulcers, No Nodules or Sclerosis, - Neurological: Alert and Oriented x 3, NL Sensation Result Diagrams: 06/28/18 05:35 06/27/18 06:40 Microbiology and Other Data: Microbiology 06/21/18 20:05 Nasal Screen MRSA (PCR) - Final Nasal Mrsa Detected 06/21/18 17:25 Skin and Soft Tissue MRSA/MSSA (PCR - Final Foot Left Mrsa Negative S.aureus Negative Gram Stain - Final Assess/Plan/Problems-Billing Assessment: 67 yo m with h/o DM, CKD, HTN who suffered from multiple b/l foot wounds after trying to break up a dog fight 06/03/18. Transferred to [facility] and had b/l foot surgery on 06/04/18 with left forth toe amputation and multiple wound sutured and left great toe pinned. Transferred to [facility] on 06/21/18 and back to our ED the same day after staff at [facility] noted gangrene on left 3rd toe - Patient Problems (1) Osteomyelitis Status: Acute Code(s): M86.9 - OSTEOMYELITIS, UNSPECIFIED SNOMED Code(s): 64291886 Comment: of left 3rd and forth metatarsal , s/p left midfoot amputation on 02/01. S/p r foot debridement and Vac placement on 06/24/18, repeat debridement with closure L foot wound 06/27/18. WoundVac R foot on 06/28. Cont ceftr/metro/anc. Cx positive for E. coli and MRSA,bacterioides. ID following Oycodone SR starting 06/26 PM. (2) DM2 (diabetes mellitus, type 2) Current Visit: Yes Status: Acute Comment: Glipizide reduced to 5 mg bid PM, cont ISS. Metformin on hold. (3) CKD (chronic kidney disease) stage 3, GFR 30-59 ml/min Current Visit: Yes Status: Acute Code(s): N18.3 - CHRONIC KIDNEY DISEASE, STAGE 3 (MODERATE) SNOMED Code(s): 577353272 Comment: due to DM, BMP 06/30. (4) Morbid obesity Current Visit: Yes Status: Acute Code(s): E66.01 - MORBID (SEVERE) OBESITY DUE TO EXCESS CALORIES SNOMED Code(s): 147193459 (5) Gangrene of foot Current Visit: Yes Status: Acute Code(s): I96 - GANGRENE, NOT ELSEWHERE CLASSIFIED SNOMED Code(s): 957049091 Comment: BMI 47.0. (6) HTN (hypertension) Current Visit: Yes Status: Acute Code(s): I10 - ESSENTIAL (PRIMARY) HYPERTENSION SNOMED Code(s): 01262060 Comment: Lisinopril on hold. Status and Disposition: Inpatient
[2018-06-28] MEDS ORDERED: Magnesium Hydroxide LIQ* 30 ML UDC PO ONE (10:36)
[2018-06-28] MEDS: Clotrimazole 1% CREAM* 45 GM TOPICAL SCH ×3 (11:41→18:18)
[2018-06-28] MEDS: Nystatin TOP POWDER* 15 GM BTL TOPICAL SCH ×2 (11:41→21:36)
[2018-06-28] MEDS: cefTRIAXone(*) 1 GM in NS 0.9% 50 ML* 50 ML IVPB SCH (15:21)
[2018-06-28] MEDS: Morphine 4 MG/ML VIAL (1 ml) 4 MG/ML VIAL IV PRN (15:22)
[2018-06-28] MEDS: Acetaminophen TAB* 325 MG PO PRN (18:12)
[2018-06-28] MEDS: Atorvastatin* 20 MG TAB PO SCH (21:35)
[2018-06-29] MEDS: Clotrimazole 1% CREAM* 45 GM TOPICAL SCH ×5 (00:40→22:40)
[2018-06-29] MEDS: Vancomycin(*) 1,000 MG in NS 0.9% 250 ML* 250 ML IVPB SCH ×2 (04:20→15:46)
[2018-06-29] MEDS: Clotrimazole TROCHE* 10 MG TROCHE PO SCH ×5 (06:28→22:42)
[2018-06-29] MEDS: Heparin VIAL(*) 5000 UNITS/ML VIAL (FIVE THOUSAND) SUBCUT SCH ×3 (06:44→21:26)
--- NOTE | 2018-06-29 08:43 | PN ---
Progress Note - Progress Note Date of Service: 06/29/18 SOAP: Subjective: POD #2 repeat I&D right foot. States that he is having some pain, but controlled with meds. Denies f/c, n/v, CP/SOB Objective: Vitals: Temp Pulse Resp BP Pulse Ox 98.9 F 71 16 108/53 91 06/29/18 07:53 06/29/18 07:53 06/29/18 07:53 06/29/18 07:53 06/29/18 07:53 Gen: A&O x3, NAD at rest laying in bed LLE: Dressing C/D/I, calf soft and NT RLE: Dressing C/D/I, VAC with good suction, calf soft and NT Labs: Laboratory Results - last 24 hr 06/28/18 06/28/18 06/28/18 11:43 17:10 21:26 POC Glucose (mg/dL) 179 H 194 H 205 H 06/29/18 07:20 POC Glucose (mg/dL) 149 H Assessment: POD #2 repeat I&D right foot Plan: To OR Sunday for repeat I&D right foot, possible wound closure Cont frequent elevation of LE OOB to chair as tolerated
[2018-06-29] MEDS: Tamsulosin CAP* 0.4 MG PO SCH (09:28)
[2018-06-29] MEDS: Fluconazole 100 MG TAB* TAB PO SCH (09:28)
[2018-06-29] MEDS: oxyCODONE SR TAB(*) 20 MG TAB.SR PO SCH ×2 (09:29→21:24)
[2018-06-29] MEDS: glipiZIDE TAB* 5 MG PO SCH ×2 (09:29→17:42)
[2018-06-29] MEDS: metroNIDAZOLE * 500 MG TABLET PO SCH ×3 (09:29→22:17)
[2018-06-29] MEDS: Insulin LISPRO* 1 UNITS UNIT SUBCUT SCH ×4 (09:29→22:17)
[2018-06-29] MEDS: Polyethylene Glycol 3350* 17 GM PACKET PO SCH ×2 (09:30→22:40)
[2018-06-29] MEDS: Nystatin TOP POWDER* 15 GM BTL TOPICAL SCH ×2 (09:31→22:40)
--- NOTE | 2018-06-29 13:29 | PN ---
Subjective Date of Service: 06/29/18 Interval History: No new c/o. Pain control OK. Objective Active Medications: Acetaminophen (Tylenol Tab*) 650 mg PO Q6H PRN PRN Reason: FEVER/PAIN Last Admin: 06/28/18 18:12 Dose: 650 mg Atorvastatin Calcium (Lipitor*) 20 mg PO BEDTIME [facility] Last Admin: 06/28/18 21:35 Dose: 20 mg Clotrimazole (Mycelex Hanane*) 10 mg PO FIVE TIMES DAILY [facility] Last Admin: 06/29/18 10:39 Dose: 10 mg Clotrimazole (Clotrimazole 1%*) 1 applic TOPICAL QID [facility] Last Admin: 06/29/18 13:06 Dose: 1 applic Dextrose (D50w Syringe 50 Ml*) 12.5 gm IV PUSH .FOR FS < 60 - SS PRN PRN Reason: FS < 60 Fluconazole (Diflucan 100 Mg Tab*) 100 mg PO DAILY [facility] Last Admin: 06/29/18 09:28 Dose: 100 mg Glipizide (Glucotrol Tab*) 10 mg PO 0800,1700 [facility] Heparin Sodium (Porcine) (Heparin Vial(*)) 5,000 units SUBCUT Q8HR [facility] Last Admin: 06/29/18 13:06 Dose: 5,000 units Vancomycin HCl 1,000 mg/ (Sodium Chloride) 250 mls @ 166.667 mls/hr IVPB Q12H [facility] Last Admin: 06/29/18 04:20 Dose: 166.667 mls/hr Ceftriaxone Sodium 1 gm/ (Sodium Chloride) 50 mls @ 200 mls/hr IVPB Q24H [facility] Last Admin: 06/28/18 15:21 Dose: 200 mls/hr Insulin Human Lispro (Humalog*) 0 units SUBCUT ACHS [facility]; Protocol Last Admin: 06/29/18 13:06 Dose: 3 units Meclizine HCl (Antivert Tab*) 25 mg PO Q8HR PRN PRN Reason: DIZZINESS Metronidazole (Flagyl) 500 mg PO TID [facility] Last Admin: 06/29/18 13:05 Dose: 500 mg Morphine Sulfate (Morphine Vial*) 2 mg IV Q3H PRN PRN Reason: PAIN - MILD Last Admin: 06/28/18 15:22 Dose: 2 mg Nystatin (Nystatin Top Powder*) 1 applic TOPICAL BID [facility] Last Admin: 06/29/18 09:31 Dose: 1 applic Ondansetron HCl (Zofran Inj*) 4 mg IV Q6H PRN PRN Reason: NAUSEA Oxycodone HCl (Oxycontin(*)) 20 mg PO Q12HR [facility] Last Admin: 06/29/18 09:29 Dose: 20 mg Oxycodone HCl (Roxycodone Tab*) 10 mg PO Q4H PRN PRN Reason: PAIN Last Admin: 06/28/18 21:35 Dose: 10 mg Pharmacy Consult (Vancomycin Per Pharmacy*) 1 note FOLLOW UP .VANC PER PHARMACY [facility] Polyethylene Glycol/Electrolytes (Miralax*) 17 gm PO BID [facility] Last Admin: 06/29/18 09:30 Dose: Not Given Tamsulosin HCl (Flomax Cap*) 0.4 mg PO DAILY [facility] Last Admin: 06/29/18 09:28 Dose: 0.4 mg Vital Signs - 8 hr 06/29/18 06/29/18 06/29/18 07:00 07:53 09:29 Temperature 98.9 F Pulse Rate 71 Respiratory 16 16 18 Rate Blood Pressure 108/53 (mmHg) O2 Sat by Pulse 91 91 Oximetry 06/29/18 11:31 Temperature 101 F Pulse Rate 93 Respiratory 18 Rate Blood Pressure 145/69 (mmHg) O2 Sat by Pulse 93 Oximetry Oxygen Devices in Use Now: None Appearance: Alert, supine in bed. In good spirits. Looks comfortable. Extremities: No Edema, No Clubbing, Cyanosis, - Skin: No Rash or Ulcers, No Nodules or Sclerosis, - Neurological: Alert and Oriented x 3, NL Sensation Result Diagrams: 06/28/18 05:35 06/27/18 06:40 Microbiology and Other Data: Microbiology 06/21/18 20:05 Nasal Screen MRSA (PCR) - Final Nasal Mrsa Detected 06/21/18 17:25 Skin and Soft Tissue MRSA/MSSA (PCR - Final Foot Left Mrsa Negative S.aureus Negative Gram Stain - Final Assess/Plan/Problems-Billing Assessment: 67 yo m with h/o DM, CKD, HTN who suffered from multiple b/l foot wounds after trying to break up a dog fight 06/03/18. Transferred to [facility] and had b/l foot surgery on 06/04/18 with left forth toe amputation and multiple wound sutured and left great toe pinned. Transferred to [facility] on 06/21/18 and back to our ED the same day after staff at [facility] noted gangrene on left 3rd toe - Patient Problems (1) Osteomyelitis Status: Acute Code(s): M86.9 - OSTEOMYELITIS, UNSPECIFIED SNOMED Code(s): 88626118 Comment: of left 3rd and forth metatarsal , s/p left midfoot amputation on 02/01. S/p r foot debridement and Vac placement on 06/24/18, repeat debridement with closure L foot wound 06/27/18. WoundVac R foot on 06/28. Plan further debridement with possible closure wound R foot 07/01. Cont ceftr/metro/anc. Cx positive for E. coli and MRSA,bacterioides. Discussed with Dr. Olmedo 06/28/18. Oycodone SR starting 06/26 PM. (2) DM2 (diabetes mellitus, type 2) Current Visit: Yes Status: Acute Comment: Glipizide increased to 5 mg bid PM, cont ISS. Metformin on hold. (3) CKD (chronic kidney disease) stage 3, GFR 30-59 ml/min Current Visit: Yes Status: Acute Code(s): N18.3 - CHRONIC KIDNEY DISEASE, STAGE 3 (MODERATE) SNOMED Code(s): 067263308 Comment: due to DM, BMP 06/30. (4) Morbid obesity Current Visit: Yes Status: Acute Code(s): E66.01 - MORBID (SEVERE) OBESITY DUE TO EXCESS CALORIES SNOMED Code(s): 221050654 (5) Gangrene of foot Current Visit: Yes Status: Acute Code(s): I96 - GANGRENE, NOT ELSEWHERE CLASSIFIED SNOMED Code(s): 194327974 Comment: BMI 47.0. (6) HTN (hypertension) Current Visit: Yes Status: Acute Code(s): I10 - ESSENTIAL (PRIMARY) HYPERTENSION SNOMED Code(s): 57441290 Comment: Lisinopril on hold. Status and Disposition: Inpatient
[2018-06-29] MEDS: cefTRIAXone(*) 1 GM in NS 0.9% 50 ML* 50 ML IVPB SCH (14:55)
[2018-06-29] MEDS: oxyCODONE TAB* 5 MG TAB PO PRN ×2 (15:46→21:24)
[2018-06-29] MEDS: Atorvastatin* 20 MG TAB PO SCH (21:24)
[2018-06-30] MEDS: Vancomycin(*) 1,000 MG in NS 0.9% 250 ML* 250 ML IVPB SCH ×2 (03:48→15:33)
[2018-06-30] MEDS: Clotrimazole TROCHE* 10 MG TROCHE PO SCH ×5 (05:38→21:32)
[2018-06-30] MEDS: oxyCODONE TAB* 5 MG TAB PO PRN ×2 (05:40→13:25)
[2018-06-30] MEDS: Heparin VIAL(*) 5000 UNITS/ML VIAL (FIVE THOUSAND) SUBCUT SCH ×3 (05:42→21:38)
[2018-06-30 06:12] LABS: EGFR African American 79.4 (>60); EGFR Non-African American 65.6 (>60)
[2018-06-30] MEDS: glipiZIDE TAB* 5 MG PO SCH ×2 (08:06→16:42)
[2018-06-30] MEDS: Morphine 4 MG/ML VIAL (1 ml) 4 MG/ML VIAL IV PRN ×2 (08:20→21:11)
[2018-06-30] MEDS: Polyethylene Glycol 3350* 17 GM PACKET PO SCH ×2 (08:24→21:12)
[2018-06-30] MEDS: Tamsulosin CAP* 0.4 MG PO SCH (09:14)
[2018-06-30] MEDS: metroNIDAZOLE * 500 MG TABLET PO SCH ×2 (09:14→14:27)
[2018-06-30] MEDS: Fluconazole 100 MG TAB* TAB PO SCH (09:14)
[2018-06-30] MEDS: oxyCODONE SR TAB(*) 20 MG TAB.SR PO SCH ×2 (09:14→21:10)
[2018-06-30] MEDS: Nystatin TOP POWDER* 15 GM BTL TOPICAL SCH ×2 (09:15→21:32)
[2018-06-30] MEDS: Insulin LISPRO* 1 UNITS UNIT SUBCUT SCH ×4 (09:15→21:31)
[2018-06-30] MEDS: Clotrimazole 1% CREAM* 45 GM TOPICAL SCH ×4 (09:15→21:13)
--- NOTE | 2018-06-30 09:22 | PN ---
Progress Note - Progress Note Date of Service: 06/30/18 SOAP: Subjective: POD #3 Repeat I&D Right foot. Nurse reports wound VAC stopped working overnight. Pt c/o pain and being tired. Denies CP/SOB, f/c, n/v Objective: Vitals: Temp Pulse Resp BP Pulse Ox 98.0 F 67 18 167/64 98 03// 07:49 06/30/18 07:49 06/30/18 09:14 06/30/18 07:49 06/30/18 08:00 Gen: A&Ox3, NAD at rest laying in bed RLE: Open wound to medial plantar forefoot. No drainage or erythema. Good granulation tissue to base. Multiple abrasions and lacerations to foot. LLE: Dressing C/D/I Assessment: POD #3 Repeat I&D Right foot Plan: Wound VAC removed, betadine dressing applied NPO p MN for OR tomorrow Cont current pain medication Cont abx per ID
--- NOTE | 2018-06-30 12:40 | PN ---
Subjective Date of Service: 06/30/18 Interval History: Pain in feet off and on--patient seems satisfied with pain control. No bowel c/ o. Appetite good. Objective Active Medications: Acetaminophen (Tylenol Tab*) 650 mg PO Q6H PRN PRN Reason: FEVER/PAIN Last Admin: 06/28/18 18:12 Dose: 650 mg Atorvastatin Calcium (Lipitor*) 20 mg PO BEDTIME [facility] Last Admin: 06/29/18 21:24 Dose: 20 mg Clotrimazole (Mycelex Hanane*) 10 mg PO FIVE TIMES DAILY [facility] Last Admin: 06/30/18 09:14 Dose: 10 mg Clotrimazole (Clotrimazole 1%*) 1 applic TOPICAL QID [facility] Last Admin: 06/30/18 09:15 Dose: 1 applic Dextrose (D50w Syringe 50 Ml*) 12.5 gm IV PUSH .FOR FS < 60 - SS PRN PRN Reason: FS < 60 Fluconazole (Diflucan 100 Mg Tab*) 100 mg PO DAILY [facility] Last Admin: 06/30/18 09:14 Dose: 100 mg Glipizide (Glucotrol Tab*) 10 mg PO 0800,1700 [facility] Last Admin: 06/30/18 08:06 Dose: 10 mg Heparin Sodium (Porcine) (Heparin Vial(*)) 5,000 units SUBCUT Q8HR [facility] Last Admin: 06/30/18 05:42 Dose: 5,000 units Vancomycin HCl 1,000 mg/ (Sodium Chloride) 250 mls @ 166.667 mls/hr IVPB Q12H [facility] Last Admin: 06/30/18 03:48 Dose: 166.667 mls/hr Ceftriaxone Sodium 1 gm/ (Sodium Chloride) 50 mls @ 200 mls/hr IVPB Q24H [facility] Last Admin: 06/29/18 14:55 Dose: 200 mls/hr Insulin Human Lispro (Humalog*) 0 units SUBCUT ACHS [facility]; Protocol Last Admin: 06/30/18 09:15 Dose: 3 units Meclizine HCl (Antivert Tab*) 25 mg PO Q8HR PRN PRN Reason: DIZZINESS Metronidazole (Flagyl) 500 mg PO TID [facility] Last Admin: 06/30/18 09:14 Dose: 500 mg Morphine Sulfate (Morphine Vial*) 2 mg IV Q3H PRN PRN Reason: PAIN - MILD Last Admin: 06/30/18 08:20 Dose: 2 mg Nystatin (Nystatin Top Powder*) 1 applic TOPICAL BID [facility] Last Admin: 06/30/18 09:15 Dose: 1 applic Ondansetron HCl (Zofran Inj*) 4 mg IV Q6H PRN PRN Reason: NAUSEA Oxycodone HCl (Oxycontin(*)) 20 mg PO Q12HR [facility] Last Admin: 06/30/18 09:14 Dose: 20 mg Oxycodone HCl (Roxycodone Tab*) 10 mg PO Q4H PRN PRN Reason: PAIN Last Admin: 06/30/18 05:40 Dose: 10 mg Pharmacy Consult (Vancomycin Per Pharmacy*) 1 note FOLLOW UP .VANC PER PHARMACY [facility] Pharmacy Profile Note (Vancomycin Trough Check) 1 note FOLLOW UP 1430 ONE Stop: 06/30/18 14:31 Polyethylene Glycol/Electrolytes (Miralax*) 17 gm PO BID [facility] Last Admin: 06/30/18 08:24 Dose: Not Given Tamsulosin HCl (Flomax Cap*) 0.4 mg PO DAILY [facility] Last Admin: 06/30/18 09:14 Dose: 0.4 mg Vital Signs - 8 hr 06/30/18 06/30/18 06/30/18 05:40 07:49 08:00 Temperature 98.0 F Pulse Rate 67 Respiratory 16 18 18 Rate Blood Pressure 167/64 (mmHg) O2 Sat by Pulse 98 98 Oximetry 06/30/18 06/30/18 06/30/18 08:20 08:24 09:14 Temperature Pulse Rate Respiratory 18 18 18 Rate Blood Pressure (mmHg) O2 Sat by Pulse Oximetry 06/30/18 06/30/18 10:03 11:36 Temperature 99 F Pulse Rate 80 Respiratory 18 18 Rate Blood Pressure 150/77 (mmHg) O2 Sat by Pulse 95 Oximetry Oxygen Devices in Use Now: None Appearance: Alert, supine in recliner. Neutral affect. Looks comfortable. Eyes: No Scleral Icterus Respiratory: Symmetrical Chest Expansion and Respiratory Effort, Clear to Auscultation, Clear to Percussion Cardiovascular: NL Sounds; No Murmurs; No JVD, RRR, No Edema, - Extremities: No Edema, No Clubbing, Cyanosis, - - Both feet wrapped, WoundVac R foot. Skin: No Rash or Ulcers, No Nodules or Sclerosis, - Neurological: Alert and Oriented x 3, NL Sensation Result Diagrams: 06/28/18 05:35 06/30/18 05:29 Microbiology and Other Data: Microbiology 06/21/18 20:05 Nasal Screen MRSA (PCR) - Final Nasal Mrsa Detected 06/21/18 17:25 Skin and Soft Tissue MRSA/MSSA (PCR - Final Foot Left Mrsa Negative S.aureus Negative Gram Stain - Final Assess/Plan/Problems-Billing Assessment: 67 yo m with h/o DM, CKD, HTN who suffered from multiple b/l foot wounds after trying to break up a dog fight 06/03/18. Transferred to [facility] [[email or web address] and had b/l foot surgery on 06/04/18 with left forth toe amputation and multiple wound sutured and left great toe pinned. Transferred to [facility] on 06/21/18 and back to our ED the same day after staff at [facility] noted gangrene on left 3rd toe - Patient Problems (1) Osteomyelitis Status: Acute Code(s): M86.9 - OSTEOMYELITIS, UNSPECIFIED SNOMED Code(s): 85971278 Comment: of left 3rd and forth metatarsal , s/p left midfoot amputation on 02/01. S/p r foot debridement and Vac placement on 06/24/18, repeat debridement with closure L foot wound 06/27/18. WoundVac R foot on 06/28. Plan further debridement with possible closure wound R foot 07/01. Cont ceftr/metro/anc. Cx positive for E. coli and MRSA,bacterioides. Discussed with Dr. Olmedo 06/28/18. Oycodone SR starting 06/26 PM. (2) DM2 (diabetes mellitus, type 2) Current Visit: Yes Status: Acute Comment: Glipizide increased to 5 mg bid PM, cont ISS. Metformin on hold, could re-start on discharge.. (3) CKD (chronic kidney disease) stage 3, GFR 30-59 ml/min Current Visit: Yes Status: Acute Code(s): N18.3 - CHRONIC KIDNEY DISEASE, STAGE 3 (MODERATE) SNOMED Code(s): 274697666 Comment: due to DM, improved, est GFR 65.6 on 06/30/18. (4) Morbid obesity Current Visit: Yes Status: Acute Code(s): E66.01 - MORBID (SEVERE) OBESITY DUE TO EXCESS CALORIES SNOMED Code(s): 380976319 Comment: BMI 47.0 (5) Gangrene of foot Current Visit: Yes Status: Acute Code(s): I96 - GANGRENE, NOT ELSEWHERE CLASSIFIED SNOMED Code(s): 574283934 Comment: BMI 47.0. (6) HTN (hypertension) Current Visit: Yes Status: Acute Code(s): I10 - ESSENTIAL (PRIMARY) HYPERTENSION SNOMED Code(s): 47314700 Comment: Lisinopril re-started at 2.5 mg daily 06/30/18. Status and Disposition: Inpatient
[2018-06-30] MEDS: Lisinopril TAB* 5 MG PO SCH (13:25)
[2018-06-30] MEDS: metroNIDAZOLE TAB* 250 MG PO SCH ×2 (14:30→21:11)
[2018-06-30] MEDS ORDERED: Vancomycin Trough Check NOTE FOLLOW UP ONE (14:30)
[2018-06-30] MEDS: cefTRIAXone(*) 1 GM in NS 0.9% 50 ML* 50 ML IVPB SCH (14:43)
[2018-06-30] MEDS: Atorvastatin* 20 MG TAB PO SCH (21:11)
[2018-07-01] MEDS: oxyCODONE TAB* 5 MG TAB PO PRN ×3 (00:21→17:10)
[2018-07-01] MEDS: Vancomycin(*) 1,000 MG in NS 0.9% 250 ML* 250 ML IVPB SCH ×2 (03:40→17:02)
[2018-07-01] MEDS: Morphine INJ* 2 MG/ML 1 ML SYRINGE (TWO MG - NEW SYRINGE VERSION) IV PRN ×3 (04:50→14:39)
[2018-07-01] MEDS: Clotrimazole TROCHE* 10 MG TROCHE PO SCH ×5 (06:08→21:35)
[2018-07-01] MEDS: Heparin VIAL(*) 5000 UNITS/ML VIAL (FIVE THOUSAND) SUBCUT SCH ×3 (07:54→21:35)
[2018-07-01] MEDS: Insulin LISPRO* 1 UNITS UNIT SUBCUT SCH ×4 (08:15→21:22)
--- NOTE | 2018-07-01 08:48 | PN ---
Subjective Date of Service: 07/01/18 Interval History: to the OR today with ortho, c/o sharp stabbing in throbbing pain to bilat lower ext. denies fever/chills. denies chest pain or shortness of breath. denies abd pain n/v/d. Family History: Unchanged from Admission Social History: Unchanged from Admission Past Medical History: Unchanged from Admission Objective Active Medications: Acetaminophen (Tylenol Tab*) 650 mg PO Q6H PRN PRN Reason: FEVER/PAIN Last Admin: 06/28/18 18:12 Dose: 650 mg Atorvastatin Calcium (Lipitor*) 20 mg PO BEDTIME [facility] Last Admin: 06/30/18 21:11 Dose: 20 mg Clotrimazole (Mycelex Hanane*) 10 mg PO FIVE TIMES DAILY [facility] Last Admin: 07/01/18 06:08 Dose: Not Given Clotrimazole (Clotrimazole 1%*) 1 applic TOPICAL QID [facility] Last Admin: 06/30/18 21:13 Dose: 1 applic Dextrose (D50w Syringe 50 Ml*) 12.5 gm IV PUSH .FOR FS < 60 - SS PRN PRN Reason: FS < 60 Fluconazole (Diflucan 100 Mg Tab*) 100 mg PO DAILY [facility] Last Admin: 06/30/18 09:14 Dose: 100 mg Glipizide (Glucotrol Tab*) 10 mg PO 0800,1700 [facility] Last Admin: 06/30/18 16:42 Dose: 10 mg Heparin Sodium (Porcine) (Heparin Vial(*)) 5,000 units SUBCUT Q8HR [facility] Last Admin: 07/01/18 07:54 Dose: Not Given Vancomycin HCl 1,000 mg/ (Sodium Chloride) 250 mls @ 166.667 mls/hr IVPB Q12H [facility] Last Admin: 07/01/18 03:40 Dose: 166.667 mls/hr Ceftriaxone Sodium 1 gm/ (Sodium Chloride) 50 mls @ 200 mls/hr IVPB Q24H [facility] Last Admin: 06/30/18 14:43 Dose: 200 mls/hr Insulin Human Lispro (Humalog*) 0 units SUBCUT ACHS [facility]; Protocol Last Admin: 07/01/18 08:15 Dose: Not Given Lisinopril (Prinivil Tab*) 2.5 mg PO DAILY [facility] Last Admin: 06/30/18 13:25 Dose: 2.5 mg Meclizine HCl (Antivert Tab*) 25 mg PO Q8HR PRN PRN Reason: DIZZINESS Metronidazole (Flagyl Tab*) 500 mg PO TID [facility] Last Admin: 06/30/18 21:11 Dose: 500 mg Morphine Sulfate (Morphine Inj ((Syringe))*) 2 mg IV Q3H PRN PRN Reason: SEVERE PAIN Last Admin: 07/01/18 08:01 Dose: 2 mg Nystatin (Nystatin Top Powder*) 1 applic TOPICAL BID [facility] Last Admin: 06/30/18 21:32 Dose: 1 applic Ondansetron HCl (Zofran Inj*) 4 mg IV Q6H PRN PRN Reason: NAUSEA Oxycodone HCl (Oxycontin(*)) 20 mg PO Q12HR [facility] Last Admin: 06/30/18 21:10 Dose: 20 mg Oxycodone HCl (Roxycodone Tab*) 10 mg PO Q4H PRN PRN Reason: PAIN Last Admin: 07/01/18 00:21 Dose: 10 mg Pharmacy Consult (Vancomycin Per Pharmacy*) 1 note FOLLOW UP .VANC PER PHARMACY [facility] Polyethylene Glycol/Electrolytes (Miralax*) 17 gm PO BID [facility] Last Admin: 06/30/18 21:12 Dose: Not Given Tamsulosin HCl (Flomax Cap*) 0.4 mg PO DAILY [facility] Last Admin: 06/30/18 09:14 Dose: 0.4 mg Vital Signs - 8 hr 07/01/18 07/01/18 07/01/18 04:30 04:50 04:52 Temperature 97.9 F Pulse Rate 74 Respiratory 18 20 20 Rate Blood Pressure 138/72 (mmHg) O2 Sat by Pulse 93 Oximetry 07/01/18 07/01/18 07/01/18 06:08 08:00 08:01 Temperature 98.3 F Pulse Rate 69 Respiratory 20 18 18 Rate Blood Pressure 110/58 (mmHg) O2 Sat by Pulse 95 Oximetry Oxygen Devices in Use Now: None Appearance: alert , restingin bed , no acute distress Eyes: No Scleral Icterus Ears/Nose/Mouth/Throat: Clear Oropharnyx, Mucous Membranes Moist Neck: NL Appearance and Movements; NL JVP, Trachea Midline Respiratory: Symmetrical Chest Expansion and Respiratory Effort, Clear to Auscultation Cardiovascular: NL Sounds; No Murmurs; No JVD, No Edema Abdominal: NL Sounds; No Tenderness; No Distention Extremities: No Clubbing, Cyanosis, - - dressing dry and intact to bilat lower ext . Skin: No Rash or Ulcers Neurological: Alert and Oriented x 3 Nutrition: Taking PO's Result Diagrams: 07/02/18 04:41 07/02/18 04:41 Microbiology and Other Data: Microbiology 06/21/18 20:05 Nasal Screen MRSA (PCR) - Final Nasal Mrsa Detected 06/21/18 17:25 Skin and Soft Tissue MRSA/MSSA (PCR - Final Foot Left Mrsa Negative S.aureus Negative Gram Stain - Final Assess/Plan/Problems-Billing Assessment: 67 yo m with h/o DM, CKD, HTN who suffered from multiple b/l foot wounds after trying to break up a dog fight 06/03/18. Transferred to [facility] and had b/l foot surgery on 06/04/18 with left forth toe amputation and multiple wound sutured and left great toe pinned. Transferred to [facility] on 06/21/18 and back to our ED the same day after staff at [facility] noted gangrene on left 3rd toe - Patient Problems (1) Osteomyelitis Current Visit: Yes Status: Acute Code(s): M86.9 - OSTEOMYELITIS, UNSPECIFIED SNOMED Code(s): 14913959 Comment: of left 3rd and forth metatarsal , s/p left midfoot amputation on 02/01. S/p r foot debridement and Vac placement on 06/24/18, repeat debridement with closure L foot wound 06/27/18. WoundVac R foot on 06/28. -poss. debridement with possible closure wound R foot today Cont ceftr/metro/vancomycin Cx positive for E. coli and MRSA,bacterioides. Discussed with Dr. Olmedo . Oycodone SR starting 06/26 PM. (2) Gangrene of foot Current Visit: Yes Status: Acute Code(s): I96 - GANGRENE, NOT ELSEWHERE CLASSIFIED SNOMED Code(s): 851205839 Comment: Wet gangrene on admission - continue antibiotics as above - ID consulted (3) DM2 (diabetes mellitus, type 2) Current Visit: Yes Status: Acute Comment: Glipizide increased to 5 mg bid PM, cont ISS. Metformin on hold, could re-start on discharge.. (4) CKD (chronic kidney disease) stage 3, GFR 30-59 ml/min Current Visit: Yes Status: Acute Code(s): N18.3 - CHRONIC KIDNEY DISEASE, STAGE 3 (MODERATE) SNOMED Code(s): 592160903 Comment: due to DM, improved, est GFR 65.6 on 06/30/18. (5) HTN (hypertension) Current Visit: Yes Status: Acute Code(s): I10 - ESSENTIAL (PRIMARY) HYPERTENSION SNOMED Code(s): 48818645 Comment: Lisinopril re-started at 2.5 mg daily 06/30/18. (6) Morbid obesity Current Visit: Yes Status: Acute Code(s): E66.01 - MORBID (SEVERE) OBESITY DUE TO EXCESS CALORIES SNOMED Code(s): 900823193 Comment: BMI 47.0 (7) DVT prophylaxis Current Visit: Yes Status: Acute Code(s): CMF2823 - SNOMED Code(s): 883703765 Comment: HSQ (8) Full code status Current Visit: Yes Status: Acute Code(s): Z78.9 - OTHER SPECIFIED HEALTH STATUS SNOMED Code(s): 353013820 Status and Disposition: Inpatient
[2018-07-01] MEDS: glipiZIDE TAB* 5 MG PO SCH ×2 (10:04→17:11)
[2018-07-01] MEDS: Tamsulosin CAP* 0.4 MG PO SCH (10:05)
[2018-07-01] MEDS: Lisinopril TAB* 5 MG PO SCH (10:05)
[2018-07-01] MEDS: metroNIDAZOLE TAB* 250 MG PO SCH ×3 (10:05→21:22)
[2018-07-01] MEDS: Polyethylene Glycol 3350* 17 GM PACKET PO SCH ×2 (10:05→21:23)
[2018-07-01] MEDS: Fluconazole 100 MG TAB* TAB PO SCH (10:05)
[2018-07-01] MEDS: oxyCODONE SR TAB(*) 20 MG TAB.SR PO SCH ×2 (10:05→21:21)
[2018-07-01] MEDS: Clotrimazole 1% CREAM* 45 GM TOPICAL SCH ×4 (10:18→21:23)
[2018-07-01] MEDS: Nystatin TOP POWDER* 15 GM BTL TOPICAL SCH ×2 (10:18→21:23)
[2018-07-01] MEDS ORDERED: Dexamethasone IV* 4 MG/ML 1 ML (4 MG) ONE (11:07)
[2018-07-01] MEDS ORDERED: Propofol* 10 MG/ML 20 ML BTL ONE (11:07)
[2018-07-01] MEDS ORDERED: Ondansetron INJ* 2 MG/ML VIAL ONE (11:07)
[2018-07-01] MEDS ORDERED: fentaNYL* 50 MCG/ML 2 ML VIAL (100 MCG VIAL) ONE ×3 (11:07→13:30)
[2018-07-01] MEDS ORDERED: Midazolam* 1 MG/ML 5 ML VIAL (5 MG) ONE (11:07)
[2018-07-01] MEDS ORDERED: Lidocaine 2% PF * 5 ML VIAL ONE (11:07)
[2018-07-01] MEDS ORDERED: Bupivacaine 0.5%* 50 ML VIAL ONE (11:48)
[2018-07-01] MEDS ORDERED: Lidocaine 2% PF* 10 ML AMP ONE (11:49)
[2018-07-01] MEDS ORDERED: Phenylephrine 40 MCG/ML SYRINGE ONE (12:13)
[2018-07-01] MEDS ORDERED: Ondansetron INJ* 2 MG/ML VIAL IV PRN (12:36)
[2018-07-01] MEDS ORDERED: Naloxone* 0.4 MG/ML 1 ML VIAL IV PRN (12:36)
[2018-07-01] MEDS: fentaNYL* 50 MCG/ML 2 ML VIAL (100 MCG VIAL) IV PRN ×5 (13:06→13:32)
[2018-07-01] MEDS ORDERED: oxyCODONE TAB* 5 MG TAB ONE (13:10)
[2018-07-01] MEDS ORDERED: Acetaminophen TAB* 325 MG ONE (13:51)
[2018-07-01] MEDS: Acetaminophen TAB* 325 MG PO PRN (13:53)
--- NOTE | 2018-07-01 14:32 | OP ---
DATE OF OPERATION: 07/01/18 - ROOM #332 DATE OF : 52 ATTENDING SURGEON: Kanu Baum M.D. EXCHANGE CONSULTANT: CONSTANTIN Grider. PRE-OP DIAGNOSIS: Right medial forefoot necrotic infected wound. POST-OP DIAGNOSIS: Right medial forefoot necrotic infected wound. OPERATIVE PROCEDURE: Irrigation and debridement and partial secondary closure and negative pressure dressing. DESCRIPTION OF PROCEDURE: The patient was taken to the operating room where we took out of few of the stitches in the previous ragged wound along his right medial forefoot. A #15 blade was used to debride any necrotic edges or anything that look purulent. We then irrigated thoroughly and closed with retention sutures of 0 Prolene the proximal two-thirds of the wound. A small vac was placed at the distal portion of wound and sealed and applied to negative pressure. Compression dressing was then applied. We also inspected his left foot intraoperatively and the wounds appeared to be healing well, so that this just had a dressing change and a new splint applied. [id number]/CPS #: [id number] [facility]ITALMaria
[2018-07-01] MEDS: cefTRIAXone(*) 1 GM in NS 0.9% 50 ML* 50 ML IVPB SCH (16:07)
[2018-07-01] MEDS: Atorvastatin* 20 MG TAB PO SCH (21:20)
[2018-07-02] MEDS: oxyCODONE TAB* 5 MG TAB PO PRN ×3 (01:32→13:33)
[2018-07-02] MEDS: Vancomycin(*) 1,000 MG in NS 0.9% 250 ML* 250 ML IVPB SCH ×2 (02:44→15:14)
[2018-07-02 05:19] LABS: Hematocrit 27 % (36-46); Hemoglobin 8.9 g/dL (14.0-18.0); Mean Corpuscular HGB Conc 34 g/dL (31-36); Mean Corpuscular Hemoglobin 28 pg (27-31); Mean Corpuscular Volume 83 fL (80-94); Mean Platelet Volume 7.8 fL (7.4-10.4); Platelet Count 579 10^3/uL (150-450); Red Blood Count 3.22 10^6 /uL (4.18-5.48); Red Cell Distribution Width 14 % (10.5-15); White Blood Count 14.8 10^3/uL (3.5-10.8)
[2018-07-02 05:32] LABS: BUN/Creatinine Ratio 20.5 (8-20); Calcium 9.1 mg/dL (8.6-10.3); EGFR African American 79.4 (>60); EGFR Non-African American 65.6 (>60); Potassium 4.6 mmol/L (3.5-5.0)
[2018-07-02] MEDS: Clotrimazole TROCHE* 10 MG TROCHE PO SCH ×5 (05:39→22:50)
[2018-07-02] MEDS: Heparin VIAL(*) 5000 UNITS/ML VIAL (FIVE THOUSAND) SUBCUT SCH ×3 (05:39→22:50)
[2018-07-02] MEDS: oxyCODONE SR TAB(*) 20 MG TAB.SR PO SCH ×2 (07:55→20:13)
[2018-07-02] MEDS: Lisinopril TAB* 5 MG PO SCH (07:55)
[2018-07-02] MEDS: Tamsulosin CAP* 0.4 MG PO SCH (07:56)
[2018-07-02] MEDS: metroNIDAZOLE TAB* 250 MG PO SCH ×3 (07:56→20:14)
[2018-07-02] MEDS: glipiZIDE TAB* 5 MG PO SCH ×2 (07:57→17:16)
[2018-07-02] MEDS: Nystatin TOP POWDER* 15 GM BTL TOPICAL SCH ×2 (07:58→22:50)
[2018-07-02] MEDS: Polyethylene Glycol 3350* 17 GM PACKET PO SCH ×3 (07:58→22:40)
[2018-07-02] MEDS: Clotrimazole 1% CREAM* 45 GM TOPICAL SCH ×4 (07:59→20:19)
[2018-07-02] MEDS: Insulin LISPRO* 1 UNITS UNIT SUBCUT SCH ×4 (09:49→22:48)
--- NOTE | 2018-07-02 11:56 | PN ---
Progress Note - Progress Note Date of Service: 07/02/18 SOAP: Subjective: [] Pt seen OOB in chair. Pain is well controlled. Denies CP, SOB, Dizziness, Nausea. Objective: []Gen: A&Ox3, NAD at rest laying in bed RLE: wound vac suctioning, dressing CDI. Calf supple and nontender, no erythema proximal to dressing LLE: Dressing C/D/I, no erythema proximal to splint. Assessment: POD #1 Repeat I&D Right foot, recheck L foot wound Plan: NWB LLE, Heel WB RLE transfers only. Darco shoe ordered for right foot Cont current pain medication Cont abx per ID - ceftriaxone and vanco Vital Signs Temp 98.6 F 07/02/18 11:41 Pulse 83 07/02/18 11:41 Resp 16 07/02/18 11:41 BP 117/59 07/02/18 11:41 Pulse Ox 94 07/02/18 11:41 Intake & Output 07/01/18 07/02/18 07/02/18 18:59 06:59 18:59 Intake Total 2000 1200 Output Total 900 1700 100 Balance 1100 -500 -100 Intake: IV Fluids 1900 lr 1900 IVPB 500 abx - vanco 500 Oral 100 700 Output: Ordonez 900 1700 100 Other: # Bowel Movements 1 1 Estimated Stool Amount Small Large Laboratory Last Values WBC 14.8 10^3/uL (3.5-10.8) H 07/02/18 04:41 RBC 3.22 10^6 /uL (4.18-5.48) L 07/02/18 04:41 Hgb 8.9 g/dL (14.0-18.0) L 07/02/18 04:41 Hct 27 % (36-46) L 07/02/18 04:41 MCV 83 fL (80-94) 07/02/18 04:41 MCH 28 pg (27-31) 07/02/18 04:41 MCHC 34 g/dL (31-36) 07/02/18 04:41 RDW 14 % (10.5-15) 07/02/18 04:41 Plt Count 579 10^3/uL (150-450) H 07/02/18 04:41 MPV 7.8 fL (7.4-10.4) 07/02/18 04:41 Neut % (Auto) 67.6 % 06/28/18 05:35 Lymph % (Auto) 17.4 % 06/28/18 05:35 [place] % (Auto) 11.6 % 06/28/18 05:35 Eos % (Auto) 2.5 % 06/28/18 05:35 Baso % (Auto) 0.9 % 06/28/18 05:35 Absolute Neuts (auto) 8.5 10^3/ul (1.5-7.7) H 06/28/18 05:35 Absolute Lymphs (auto) 2.2 10^3/ul (1.0-4.8) 06/28/18 05:35 Absolute Monos (auto) 1.5 10^3/ul (0-0.8) H 06/28/18 05:35 Absolute Eos (auto) 0.3 10^3/ul (0-0.6) 06/28/18 05:35 Absolute Basos (auto) 0.1 10^3/ul (0-0.2) 06/28/18 05:35 Absolute Nucleated RBC 0 10^3/ul 06/28/18 05:35 Nucleated RBC % 0 06/28/18 05:35 INR (Anticoag Therapy) 1.29 (0.77-1.02) H 06/27/18 06:40 APTT 30.6 seconds (26.0-36.3) 06/25/18 14:02 Sodium 134 mmol/L (135-145) L 07/02/18 04:41 Potassium 4.6 mmol/L (3.5-5.0) 07/02/18 04:41 Chloride 102 mmol/L (101-111) 07/02/18 04:41 Carbon Dioxide 25 mmol/L (22-32) 07/02/18 04:41 Anion Gap 7 mmol/L (2-11) 07/02/18 04:41 BUN 23 mg/dL (6-24) 07/02/18 04:41 Creatinine 1.12 mg/dL (0.67-1.17) 07/02/18 04:41 Est GFR ( Amer) 79.4 (>60) 07/02/18 04:41 Est GFR (Non-Af Amer) 65.6 (>60) 07/02/18 04:41 BUN/Creatinine Ratio 20.5 (8-20) H 07/02/18 04:41 Glucose 174 mg/dL (70-100) H 07/02/18 04:41 POC Glucose (mg/dL) 377 mg/dL (70-100) H 07/01/18 21:01 Hemoglobin A1c 7.6 % (4.0-5.6) H 06/21/18 16:30 Lactic Acid 1.0 mmol/L (0.5-2.0) 06/21/18 19:20 Calcium 9.1 mg/dL (8.6-10.3) 07/02/18 04:41 Magnesium 1.9 mg/dL (1.9-2.7) 06/22/18 07:06 Total Bilirubin 0.40 mg/dL (0.2-1.0) 06/21/18 16:30 AST 22 U/L (13-39) 06/21/18 16:30 ALT 32 U/L (7-52) 06/21/18 16:30 Alkaline Phosphatase 61 U/L (34-104) 06/21/18 16:30 C-Reactive Protein 194.06 mg/L (<8.01) H 06/21/18 16:30 Total Protein 7.6 g/dL (6.4-8.9) 06/21/18 16:30 Albumin 3.4 g/dL (3.2-5.2) 06/21/18 16:30 Globulin 4.2 g/dL (2-4) H 06/21/18 16:30 Albumin/Globulin Ratio 0.8 (1-3) L 06/21/18 16:30 Urine Color Yellow 06/22/18 09:36 Urine Appearance Turbid 06/22/18 09:36 Urine pH 7.0 (5-9) 06/22/18 09:36 Ur Specific Ensign 1.010 (1.010-1.030) 06/22/18 09:36 Urine Protein 1+(30 mg/dl) (Negative) A 06/22/18 09:36 Urine Ketones Negative (Negative) 06/22/18 09:36 Urine Blood 1+ (Negative) A 06/22/18 09:36 Urine Nitrate Negative (Negative) 06/22/18 09:36 Urine Bilirubin Negative (Negative) 06/22/18 09:36 Urine Urobilinogen Negative (Negative) 06/22/18 09:36 Ur Leukocyte Esterase 2+ (Negative) A 06/22/18 09:36 Urine WBC (Auto) 3+(>20/hpf) (Absent) A 06/22/18 09:36 Urine RBC (Auto) 3+(>10/hpf) (Absent) A 06/22/18 09:36 Urine Bacteria Absent (Absent) 06/22/18 09:36 Urine Glucose Negative (Negative) 06/22/18 09:36 Vancomycin Trough 17.6 mcg/mL 06/30/18 14:38
[2018-07-02] MEDS: Acetaminophen TAB* 325 MG PO PRN (14:32)
[2018-07-02] MEDS: cefTRIAXone(*) 1 GM in NS 0.9% 50 ML* 50 ML IVPB SCH (14:44)
[2018-07-02] MEDS: Atorvastatin* 20 MG TAB PO SCH (20:14)
--- NOTE | 2018-07-02 20:29 | PN ---
Subjective Date of Service: 07/02/18 Interval History: C/o bilat lower ext pain, controlled with pain medications. denies chest pain or shortness of breath. denies fever or chills Family History: Unchanged from Admission Social History: Unchanged from Admission Past Medical History: Unchanged from Admission Objective Active Medications: Acetaminophen (Tylenol Tab*) 650 mg PO Q6H PRN PRN Reason: FEVER/PAIN Last Admin: 07/02/18 14:32 Dose: 650 mg Atorvastatin Calcium (Lipitor*) 20 mg PO BEDTIME [facility] Last Admin: 07/02/18 20:14 Dose: 20 mg Clotrimazole (Mycelex Hanane*) 10 mg PO FIVE TIMES DAILY [facility] Last Admin: 07/02/18 18:01 Dose: 10 mg Clotrimazole (Clotrimazole 1%*) 1 applic TOPICAL QID [facility] Last Admin: 07/02/18 20:19 Dose: 1 applic Dextrose (D50w Syringe 50 Ml*) 12.5 gm IV PUSH .FOR FS < 60 - SS PRN PRN Reason: FS < 60 Glipizide (Glucotrol Tab*) 10 mg PO 0800,1700 [facility] Last Admin: 07/02/18 17:16 Dose: 10 mg Heparin Sodium (Porcine) (Heparin Vial(*)) 5,000 units SUBCUT Q8HR [facility] Last Admin: 07/02/18 13:32 Dose: 5,000 units Vancomycin HCl 1,000 mg/ (Sodium Chloride) 250 mls @ 166.667 mls/hr IVPB Q12H [facility] Last Admin: 07/02/18 15:14 Dose: 166.667 mls/hr Ceftriaxone Sodium 1 gm/ (Sodium Chloride) 50 mls @ 200 mls/hr IVPB Q24H [facility] Last Admin: 07/02/18 14:44 Dose: 200 mls/hr Insulin Human Lispro (Humalog*) 0 units SUBCUT ACHS [facility]; Protocol Last Admin: 07/02/18 18:01 Dose: 9 units Lisinopril (Prinivil Tab*) 2.5 mg PO DAILY [facility] Last Admin: 07/02/18 07:55 Dose: 2.5 mg Meclizine HCl (Antivert Tab*) 25 mg PO Q8HR PRN PRN Reason: DIZZINESS Metronidazole (Flagyl Tab*) 500 mg PO TID [facility] Last Admin: 07/02/18 20:14 Dose: 500 mg Morphine Sulfate (Morphine Inj ((Syringe))*) 2 mg IV Q3H PRN PRN Reason: SEVERE PAIN Last Admin: 07/01/18 14:39 Dose: 2 mg Nystatin (Nystatin Top Powder*) 1 applic TOPICAL BID [facility] Last Admin: 07/02/18 07:58 Dose: 1 applic Ondansetron HCl (Zofran Inj*) 4 mg IV Q6H PRN PRN Reason: NAUSEA Oxycodone HCl (Oxycontin(*)) 20 mg PO Q12HR [facility] Last Admin: 07/02/18 20:13 Dose: 20 mg Oxycodone HCl (Roxycodone Tab*) 10 mg PO Q4H PRN PRN Reason: PAIN Last Admin: 07/02/18 13:33 Dose: 10 mg Pharmacy Consult (Vancomycin Per Pharmacy*) 1 note FOLLOW UP .VANC PER PHARMACY [facility] Pharmacy Profile Note (Vancomycin Trough Check) 1 note FOLLOW UP 1430 ONE Stop: 07/05/18 14:31 Polyethylene Glycol/Electrolytes (Miralax*) 17 gm PO BID [facility] Last Admin: 07/02/18 08:02 Dose: Not Given Tamsulosin HCl (Flomax Cap*) 0.4 mg PO DAILY [facility] Last Admin: 07/02/18 07:56 Dose: 0.4 mg Vital Signs - 8 hr 07/02/18 07/02/18 07/02/18 13:33 16:23 20:13 Temperature 98.0 F Pulse Rate 80 Respiratory 18 16 18 Rate Blood Pressure 111/55 (mmHg) O2 Sat by Pulse 98 Oximetry 07/02/18 20:16 Temperature Pulse Rate Respiratory 18 Rate Blood Pressure (mmHg) O2 Sat by Pulse Oximetry Oxygen Devices in Use Now: None Appearance: alert , resting in bed , appears comfortable Eyes: No Scleral Icterus Ears/Nose/Mouth/Throat: Clear Oropharnyx, Mucous Membranes Moist Neck: NL Appearance and Movements; NL JVP, Trachea Midline Respiratory: Symmetrical Chest Expansion and Respiratory Effort, Clear to Auscultation Cardiovascular: NL Sounds; No Murmurs; No JVD, No Edema Abdominal: NL Sounds; No Tenderness; No Distention Extremities: No Edema, No Clubbing, Cyanosis Skin: - - dressings intact to bilat lower ext , dry Neurological: Alert and Oriented x 3 Nutrition: Taking PO's Result Diagrams: 07/02/18 04:41 07/02/18 04:41 Microbiology and Other Data: Microbiology 06/21/18 20:05 Nasal Screen MRSA (PCR) - Final Nasal Mrsa Detected 06/21/18 17:25 Skin and Soft Tissue MRSA/MSSA (PCR - Final Foot Left Mrsa Negative S.aureus Negative Gram Stain - Final Assess/Plan/Problems-Billing Assessment: 67 yo m with h/o DM, CKD, HTN who suffered from multiple b/l foot wounds after trying to break up a dog fight 06/03/18. Transferred to [facility] and had b/l foot surgery on 06/04/18 with left forth toe amputation and multiple wound sutured and left great toe pinned. Transferred to [facility] on 06/21/18 and back to our ED the same day after staff at [facility] noted gangrene on left 3rd toe - Patient Problems (1) Osteomyelitis Current Visit: Yes Status: Acute Code(s): M86.9 - OSTEOMYELITIS, UNSPECIFIED SNOMED Code(s): 96206720 Comment: of left 3rd and forth metatarsal , s/p left midfoot amputation on 02/01. S/p r foot debridement and Vac placement on 06/24/18, repeat debridement with closure L foot wound 06/27/18. WoundVac R foot on 06/28. -OR yesterday debridement of the right foot , dresssing changed to left foot Cont ceftr/metro/vancomycin - will need to check with ID on lenght of Antibiotic tx and need for PICC line Cx positive for E. coli and MRSA,bacterioides. Discussed with Dr. Olmedo . Oycodone SR starting 313 PM. (2) Gangrene of foot Current Visit: Yes Status: Acute Code(s): I96 - GANGRENE, NOT ELSEWHERE CLASSIFIED SNOMED Code(s): 288682029 Comment: Wet gangrene on admission - continue antibiotics as above - ID consulted (3) DM2 (diabetes mellitus, type 2) Current Visit: Yes Status: Acute Comment: -Glipizide increased to 5 mg bid 3 16 PM, cont ISS. -Metformin on hold, could re-start on discharge.. (4) CKD (chronic kidney disease) stage 3, GFR 30-59 ml/min Current Visit: Yes Status: Acute Code(s): N18.3 - CHRONIC KIDNEY DISEASE, STAGE 3 (MODERATE) SNOMED Code(s): 122438870 Comment: due to DM Improved from admsission - stable (5) HTN (hypertension) Current Visit: Yes Status: Acute Code(s): I10 - ESSENTIAL (PRIMARY) HYPERTENSION SNOMED Code(s): 09096361 Comment: Lisinopril re-started at 2.5 mg daily 06/30/18. (6) Morbid obesity Current Visit: Yes Status: Acute Code(s): E66.01 - MORBID (SEVERE) OBESITY DUE TO EXCESS CALORIES SNOMED Code(s): 104098965 Comment: BMI 47.0 (7) DVT prophylaxis Current Visit: Yes Status: Acute Code(s): QPK4034 - SNOMED Code(s): 145479888 Comment: HSQ (8) Full code status Current Visit: Yes Status: Acute Code(s): Z78.9 - OTHER SPECIFIED HEALTH STATUS SNOMED Code(s): 794034252 Status and Disposition: Inpatient
[2018-07-03] MEDS: Vancomycin(*) 1,000 MG in NS 0.9% 250 ML* 250 ML IVPB SCH ×2 (03:01→16:29)
[2018-07-03] MEDS: Acetaminophen TAB* 325 MG PO PRN (03:05)
[2018-07-03] MEDS: oxyCODONE TAB* 5 MG TAB PO PRN ×3 (05:36→18:54)
[2018-07-03] MEDS: Clotrimazole TROCHE* 10 MG TROCHE PO SCH ×5 (05:37→22:07)
[2018-07-03] MEDS: Heparin VIAL(*) 5000 UNITS/ML VIAL (FIVE THOUSAND) SUBCUT SCH ×3 (05:38→22:09)
[2018-07-03] MEDS: Polyethylene Glycol 3350* 17 GM PACKET PO SCH ×2 (07:22→22:14)
[2018-07-03] MEDS: Lisinopril TAB* 5 MG PO SCH (07:41)
[2018-07-03] MEDS: Tamsulosin CAP* 0.4 MG PO SCH (07:41)
[2018-07-03] MEDS: metroNIDAZOLE TAB* 250 MG PO SCH (07:41)
[2018-07-03] MEDS: Nystatin TOP POWDER* 15 GM BTL TOPICAL SCH ×2 (07:41→20:58)
[2018-07-03] MEDS: Clotrimazole 1% CREAM* 45 GM TOPICAL SCH ×4 (07:41→20:57)
[2018-07-03] MEDS: oxyCODONE SR TAB(*) 20 MG TAB.SR PO SCH ×2 (07:41→20:56)
[2018-07-03] MEDS: Insulin LISPRO* 1 UNITS UNIT SUBCUT SCH ×4 (08:50→22:07)
[2018-07-03] MEDS: glipiZIDE TAB* 5 MG PO SCH ×2 (09:22→16:42)
--- NOTE | 2018-07-03 10:54 | PN ---
Progress Note - Progress Note Date of Service: 07/03/18 SOAP: Subjective: CC: foot infection HPI: 67 year old man with bilateral foot injury and infection, treated at [facility] and transferred here; had partial amputation left foot for gangrene and I&D right foot. Still has vac on right foot. No fever, rash, or diarrhea. Anxious to get to SNF, feels well. Objective: Vital Signs Temp 36.4 C 07/03/18 07:35 Pulse 66 07/03/18 07:35 Resp 18 07/03/18 08:00 BP 131/70 07/03/18 07:35 Pulse Ox 97 07/03/18 07:35 Intake & Output 07/02/18 07/03/18 07/03/18 18:59 06:59 18:59 Intake Total 790 1610 320 Output Total 900 3700 Balance -110 -2090 320 Intake: IV Fluids 310 ABX - CEFTRIAXONE 55 abx - vanco 255 Oral 480 1610 320 Output: Ordonez 900 3700 Other: Date of Last Bowel 07/02/18 Movement # Bowel Movements 1 0 Estimated Stool Amount Large Medium Gen:awake, no distress HEENT: no thrush Heart:RRR no murmur Lungs:CTA BL Abd:+BS NTND soft Skin: no rash MSK: Left foot partial amptutation, incision intact no erythema Right foot wrapped, vac present Assessment: 1. osteomyelitis and gangrene left foot s/p amputation and vac dressing 2. Right foot cellulitis, debridement of necrotic tissue 3. morbid obesity 4. T2 diabetes mellitus 5. CKD Plan: 1. continue vancomycin 1 gm twice daily, ceftriaxone 1 gm daily both day 04/05 with weekl ycbc, cmp, crp, vanco trough (goal 10-15). Discussed with patient and family.
--- NOTE | 2018-07-03 12:38 | PN ---
Subjective Date of Service: 07/03/18 Interval History: Patient is feeling well. Patient has been having pain in his B/L feet and it is currently at 3/10. Patient denies F/C, N/V, abdominal pain, diarrhea, CP, SOB, dysuria, palpitations, dizziness, or other pain. Family History: Unchanged from Admission Social History: Unchanged from Admission Past Medical History: Unchanged from Admission Objective Active Medications: Acetaminophen (Tylenol Tab*) 650 mg PO Q6H PRN PRN Reason: FEVER/PAIN Last Admin: 07/03/18 03:05 Dose: 650 mg Atorvastatin Calcium (Lipitor*) 20 mg PO BEDTIME [facility] Last Admin: 07/02/18 20:14 Dose: 20 mg Clotrimazole (Mycelex Hanane*) 10 mg PO FIVE TIMES DAILY [facility] Last Admin: 07/03/18 09:22 Dose: 10 mg Clotrimazole (Clotrimazole 1%*) 1 applic TOPICAL QID [facility] Last Admin: 07/03/18 07:41 Dose: 1 applic Dextrose (D50w Syringe 50 Ml*) 12.5 gm IV PUSH .FOR FS < 60 - SS PRN PRN Reason: FS < 60 Glipizide (Glucotrol Tab*) 10 mg PO 0800,1700 [facility] Last Admin: 07/03/18 09:22 Dose: 10 mg Heparin Sodium (Porcine) (Heparin Vial(*)) 5,000 units SUBCUT Q8HR [facility] Last Admin: 07/03/18 05:38 Dose: 5,000 units Vancomycin HCl 1,000 mg/ (Sodium Chloride) 250 mls @ 166.667 mls/hr IVPB Q12H [facility] Last Admin: 07/03/18 03:01 Dose: 166.667 mls/hr Ceftriaxone Sodium 1 gm/ (Sodium Chloride) 50 mls @ 200 mls/hr IVPB Q24H [facility] Last Admin: 07/02/18 14:44 Dose: 200 mls/hr Insulin Human Lispro (Humalog*) 0 units SUBCUT ACHS [facility]; Protocol Last Admin: 07/03/18 11:48 Dose: Not Given Lisinopril (Prinivil Tab*) 2.5 mg PO DAILY [facility] Last Admin: 07/03/18 07:41 Dose: 2.5 mg Meclizine HCl (Antivert Tab*) 25 mg PO Q8HR PRN PRN Reason: DIZZINESS Morphine Sulfate (Morphine Inj ((Syringe))*) 2 mg IV Q3H PRN PRN Reason: SEVERE PAIN Last Admin: 07/01/18 14:39 Dose: 2 mg Nystatin (Nystatin Top Powder*) 1 applic TOPICAL BID [facility] Last Admin: 07/03/18 07:41 Dose: 1 applic Ondansetron HCl (Zofran Inj*) 4 mg IV Q6H PRN PRN Reason: NAUSEA Oxycodone HCl (Oxycontin(*)) 20 mg PO Q12HR [facility] Last Admin: 07/03/18 07:41 Dose: 20 mg Oxycodone HCl (Roxycodone Tab*) 10 mg PO Q4H PRN PRN Reason: PAIN Last Admin: 07/03/18 05:36 Dose: 10 mg Pharmacy Consult (Vancomycin Per Pharmacy*) 1 note FOLLOW UP .VANC PER PHARMACY [facility] Pharmacy Profile Note (Vancomycin Trough Check) 1 note FOLLOW UP 1430 ONE Stop: 07/05/18 14:31 Polyethylene Glycol/Electrolytes (Miralax*) 17 gm PO BID [facility] Last Admin: 07/03/18 07:22 Dose: Not Given Tamsulosin HCl (Flomax Cap*) 0.4 mg PO DAILY [facility] Last Admin: 07/03/18 07:41 Dose: 0.4 mg Vital Signs - 8 hr 07/03/18 07/03/18 07/03/18 05:36 07:21 07:35 Temperature 97.5 F Pulse Rate 66 Respiratory 18 16 17 Rate Blood Pressure 131/70 (mmHg) O2 Sat by Pulse 97 Oximetry 07/03/18 07/03/18 07/03/18 07:41 08:00 11:25 Temperature 97 F Pulse Rate 65 Respiratory 18 18 20 Rate Blood Pressure 131/71 (mmHg) O2 Sat by Pulse 97 Oximetry 07/03/18 11:46 Temperature Pulse Rate Respiratory 18 Rate Blood Pressure (mmHg) O2 Sat by Pulse Oximetry Oxygen Devices in Use Now: None Appearance: Patient is a 67yo male who appears stated age and is sitting in the bed in NAD. Eyes: No Scleral Icterus, PERRLA Ears/Nose/Mouth/Throat: NL Teeth, Lips, Gums, Clear Oropharnyx, Mucous Membranes Moist Neck: NL Appearance and Movements; NL JVP, Trachea Midline Respiratory: Symmetrical Chest Expansion and Respiratory Effort, Clear to Auscultation Cardiovascular: NL Sounds; No Murmurs; No JVD, RRR, No Edema Abdominal: NL Sounds; No Tenderness; No Distention, No Hepatosplenomegaly Lymphatic: No Cervical Adenopathy Extremities: No Edema, No Clubbing, Cyanosis, - - B/L wound vac and dressing on feet. Wounds not visualized. Skin: No Nodules or Sclerosis Neurological: Alert and Oriented x 3, NL Sensation, NL Muscle Strength and Tone , - - CN II-XII intact. Result Diagrams: 07/02/18 04:41 07/02/18 04:41 Microbiology and Other Data: Microbiology 06/21/18 20:05 Nasal Screen MRSA (PCR) - Final Nasal Mrsa Detected 06/21/18 17:25 Skin and Soft Tissue MRSA/MSSA (PCR - Final Foot Left Mrsa Negative S.aureus Negative Gram Stain - Final Assess/Plan/Problems-Billing Assessment: 67 yo m with h/o DM, CKD, HTN who suffered from multiple b/l foot wounds after trying to break up a dog fight 06/03/18. Transferred to [facility] and had b/l foot surgery on 06/04/18 with left forth toe amputation and multiple wound sutured and left great toe pinned. Transferred to [facility] on 06/21/18 and back to our ED the same day after staff at [facility] noted gangrene on left 3rd toe who is S/P 3 procedures and is improving slowly with IV antibiotics. - Patient Problems (1) Osteomyelitis Current Visit: Yes Status: Acute Code(s): M86.9 - OSTEOMYELITIS, UNSPECIFIED SNOMED Code(s): 48010672 Comment: - 3rd and forth metatarsal , s/p left midfoot amputation on 06/23/18. - S/p r foot debridement and Vac placement on 06/24/18, repeat debridement with closure L foot wound 06/27/18. WoundVac R foot on 06/28. - OR with debridement of the right foot on 07/01, dresssing changed to left foot - Cont ceftriaxone, vancomycin, day 04/05 - Cx positive for E. coli, MRSA, and bacterioides - Oycodone SR starting 3/13 PM. (2) Gangrene of foot Current Visit: Yes Status: Acute Code(s): I96 - GANGRENE, NOT ELSEWHERE CLASSIFIED SNOMED Code(s): 312322130 Comment: - Wet gangrene on admission - continue antibiotics as above - ID consulted (3) Anemia Current Visit: Yes Status: Acute Code(s): D64.9 - ANEMIA, UNSPECIFIED SNOMED Code(s): 659077704 Comment: - Stable, Normocytic - No signs of acute bleeding (4) CKD (chronic kidney disease) stage 3, GFR 30-59 ml/min Current Visit: Yes Status: Acute Code(s): N18.3 - CHRONIC KIDNEY DISEASE, STAGE 3 (MODERATE) SNOMED Code(s): 768617824 Comment: - Improved from admsission - stable - Continue to Monitor (5) DM2 (diabetes mellitus, type 2) Current Visit: Yes Status: Acute Comment: - Glipizide increased to 5 mg bid 3/16 PM, cont ISS. - Resume Metformin - Moderately good control (6) HTN (hypertension) Current Visit: Yes Status: Acute Code(s): I10 - ESSENTIAL (PRIMARY) HYPERTENSION SNOMED Code(s): 92567623 Comment: - Normotensive - Continue Lisinopril (7) DVT prophylaxis Current Visit: Yes Status: Acute Code(s): TWI6926 - SNOMED Code(s): 689310596 Comment: - HSQ (8) Full code status Current Visit: Yes Status: Acute Code(s): Z78.9 - OTHER SPECIFIED HEALTH STATUS SNOMED Code(s): 807271081 Status and Disposition: Inpatient, will need [facility]ITO for terminal manager ABX and rehab at D/C
[2018-07-03] MEDS: cefTRIAXone(*) 1 GM in NS 0.9% 50 ML* 50 ML IVPB SCH (16:00)
--- NOTE | 2018-07-03 16:20 | PN ---
Progress Note - Progress Note Date of Service: 07/03/18 SOAP: Subjective: []Pt seen at bedside. He feels well with 4/10 bl LE pain. Denies CP, SOB, dizziness, nausea Objective: []Gen: NAD at rest laying in bed RLE: wound vac suctioning, dressing CDI. Calf supple and nontender, no erythema proximal to dressing LLE: Dressing C/D/I, no erythema proximal to splint. Assessment: POD #2 Repeat I&D Right foot, recheck L foot wound Plan: NWB LLE, Heel WB RLE transfers only. Darco shoe ordered for right foot Cont current pain medication Cont abx per ID - ceftriaxone and vanco Remove wound vac, betadine dressings after tomorrow CM to place for rehab Vital Signs Temp 98.3 F 07/03/18 16:03 Pulse 75 07/03/18 16:03 Resp 16 07/03/18 16:03 BP 120/62 07/03/18 16:03 Pulse Ox 94 07/03/18 16:03 Intake & Output 07/02/18 07/03/18 07/03/18 18:59 06:59 18:59 Intake Total 790 1610 520 Output Total 900 3700 1500 Balance -110 -1622 -504 Intake: IV Fluids 310 ABX - CEFTRIAXONE 55 abx - vanco 255 Oral 480 1610 520 Output: Ordonez 900 3700 1500 Other: Date of Last Bowel 07/02/18 07/03/18 Movement # Bowel Movements 1 0 1 Estimated Stool Amount Large Medium Small Laboratory Last Values WBC 14.8 10^3/uL (3.5-10.8) H 07/02/18 04:41 RBC 3.22 10^6 /uL (4.18-5.48) L 07/02/18 04:41 Hgb 8.9 g/dL (14.0-18.0) L 07/02/18 04:41 Hct 27 % (36-46) L 07/02/18 04:41 MCV 83 fL (80-94) 07/02/18 04:41 MCH 28 pg (27-31) 07/02/18 04:41 MCHC 34 g/dL (31-36) 07/02/18 04:41 RDW 14 % (10.5-15) 07/02/18 04:41 Plt Count 579 10^3/uL (150-450) H 07/02/18 04:41 MPV 7.8 fL (7.4-10.4) 07/02/18 04:41 Neut % (Auto) 67.6 % 06/28/18 05:35 Lymph % (Auto) 17.4 % 06/28/18 05:35 [place] % (Auto) 11.6 % 06/28/18 05:35 Eos % (Auto) 2.5 % 06/28/18 05:35 Baso % (Auto) 0.9 % 06/28/18 05:35 Absolute Neuts (auto) 8.5 10^3/ul (1.5-7.7) H 06/28/18 05:35 Absolute Lymphs (auto) 2.2 10^3/ul (1.0-4.8) 06/28/18 05:35 Absolute Monos (auto) 1.5 10^3/ul (0-0.8) H 06/28/18 05:35 Absolute Eos (auto) 0.3 10^3/ul (0-0.6) 06/28/18 05:35 Absolute Basos (auto) 0.1 10^3/ul (0-0.2) 06/28/18 05:35 Absolute Nucleated RBC 0 10^3/ul 06/28/18 05:35 Nucleated RBC % 0 06/28/18 05:35 INR (Anticoag Therapy) 1.29 (0.77-1.02) H 06/27/18 06:40 APTT 30.6 seconds (26.0-36.3) 06/25/18 14:02 Sodium 134 mmol/L (135-145) L 07/02/18 04:41 Potassium 4.6 mmol/L (3.5-5.0) 07/02/18 04:41 Chloride 102 mmol/L (101-111) 07/02/18 04:41 Carbon Dioxide 25 mmol/L (22-32) 07/02/18 04:41 Anion Gap 7 mmol/L (2-11) 07/02/18 04:41 BUN 23 mg/dL (6-24) 07/02/18 04:41 Creatinine 1.12 mg/dL (0.67-1.17) 07/02/18 04:41 Est GFR ( Amer) 79.4 (>60) 07/02/18 04:41 Est GFR (Non-Af Amer) 65.6 (>60) 07/02/18 04:41 BUN/Creatinine Ratio 20.5 (8-20) H 07/02/18 04:41 Glucose 174 mg/dL (70-100) H 07/02/18 04:41 POC Glucose (mg/dL) 120 mg/dL (70-100) H 07/03/18 11:42 Hemoglobin A1c 7.6 % (4.0-5.6) H 06/21/18 16:30 Lactic Acid 1.0 mmol/L (0.5-2.0) 06/21/18 19:20 Calcium 9.1 mg/dL (8.6-10.3) 07/02/18 04:41 Magnesium 1.9 mg/dL (1.9-2.7) 06/22/18 07:06 Total Bilirubin 0.40 mg/dL (0.2-1.0) 06/21/18 16:30 AST 22 U/L (13-39) 06/21/18 16:30 ALT 32 U/L (7-52) 06/21/18 16:30 Alkaline Phosphatase 61 U/L (34-104) 06/21/18 16:30 C-Reactive Protein 194.06 mg/L (<8.01) H 06/21/18 16:30 Total Protein 7.6 g/dL (6.4-8.9) 06/21/18 16:30 Albumin 3.4 g/dL (3.2-5.2) 06/21/18 16:30 Globulin 4.2 g/dL (2-4) H 06/21/18 16:30 Albumin/Globulin Ratio 0.8 (1-3) L 06/21/18 16:30 Urine Color Yellow 06/22/18 09:36 Urine Appearance Turbid 06/22/18 09:36 Urine pH 7.0 (5-9) 06/22/18 09:36 Ur Specific [place] 1.010 (1.010-1.030) 06/22/18 09:36 Urine Protein 1+(30 mg/dl) (Negative) A 06/22/18 09:36 Urine Ketones Negative (Negative) 06/22/18 09:36 Urine Blood 1+ (Negative) A 06/22/18 09:36 Urine Nitrate Negative (Negative) 06/22/18 09:36 Urine Bilirubin Negative (Negative) 06/22/18 09:36 Urine Urobilinogen Negative (Negative) 03 09:36 Ur Leukocyte Esterase 2+ (Negative) A 06/22/18 09:36 Urine WBC (Auto) 3+(>20/hpf) (Absent) A 06/22/18 09:36 Urine RBC (Auto) 3+(>10/hpf) (Absent) A 06/22/18 09:36 Urine Bacteria Absent (Absent) 06/22/18 09:36 Urine Glucose Negative (Negative) 06/22/18 09:36 Vancomycin Trough 17.6 mcg/mL 06/30/18 14:38
[2018-07-03] MEDS: Morphine INJ* 2 MG/ML 1 ML SYRINGE (TWO MG - NEW SYRINGE VERSION) IV PRN (16:41)
[2018-07-03] MEDS: metFORMIN* 500 MG TAB PO SCH (16:42)
[2018-07-03] MEDS: Atorvastatin* 20 MG TAB PO SCH (22:09)
[2018-07-04] MEDS: oxyCODONE TAB* 5 MG TAB PO PRN ×2 (03:29→13:40)
[2018-07-04] MEDS: Vancomycin(*) 1,000 MG in NS 0.9% 250 ML* 250 ML IVPB SCH ×2 (03:30→16:38)
[2018-07-04] MEDS: Clotrimazole TROCHE* 10 MG TROCHE PO SCH ×5 (05:20→21:42)
[2018-07-04] MEDS: Heparin VIAL(*) 5000 UNITS/ML VIAL (FIVE THOUSAND) SUBCUT SCH ×3 (05:20→21:43)
[2018-07-04 05:56] LABS: ABS Basophils 0.1 10^3/ul (0-0.2); ABS Eosinophils 0.2 10^3/ul (0-0.6); ABS Monocytes 0.9 10^3/ul (0-0.8); ABS Neutrophils 6.3 10^3/ul (1.5-7.7); ABS Nucleated RBC 0 10^3/ul; Eosinophil % 1.8 %; Hematocrit 27 % (36-46); Hemoglobin 8.5 g/dL (14.0-18.0); Lymphocyte % 28.5 %; Mean Corpuscular HGB Conc 32 g/dL (31-36); Mean Corpuscular Hemoglobin 27 pg (27-31); Mean Corpuscular Volume 84 fL (80-94); Mean Platelet Volume 7.6 fL (7.4-10.4); Nucleated Red Blood Cells % 0.1; Platelet Count 522 10^3/uL (150-450); Red Blood Count 3.15 10^6 /uL (4.18-5.48); Red Cell Distribution Width 15 % (10.5-15); White Blood Count 10.6 10^3/uL (3.5-10.8)
[2018-07-04 06:13] LABS: Calcium 8.6 mg/dL (8.6-10.3); EGFR African American 70.6 (>60); EGFR Non-African American 58.3 (>60); Magnesium 1.6 mg/dL (1.9-2.7); Potassium 4.1 mmol/L (3.5-5.0)
[2018-07-04] MEDS ORDERED: Magnesium Sulf 4 GM/100 ML IV* 4,000 MG/100 ML BAG IVPB ONE (06:59)
[2018-07-04] MEDS: Lisinopril TAB* 5 MG PO SCH (07:49)
[2018-07-04] MEDS: Tamsulosin CAP* 0.4 MG PO SCH (07:50)
[2018-07-04] MEDS: oxyCODONE SR TAB(*) 20 MG TAB.SR PO SCH ×2 (07:50→21:41)
[2018-07-04] MEDS: metFORMIN* 500 MG TAB PO SCH ×2 (07:53→16:50)
[2018-07-04] MEDS: glipiZIDE TAB* 5 MG PO SCH ×2 (07:53→16:50)
[2018-07-04] MEDS: Clotrimazole 1% CREAM* 45 GM TOPICAL SCH ×4 (08:09→21:44)
[2018-07-04] MEDS: Insulin LISPRO* 1 UNITS UNIT SUBCUT SCH ×4 (08:10→21:43)
[2018-07-04] MEDS: Polyethylene Glycol 3350* 17 GM PACKET PO SCH ×2 (08:10→21:42)
[2018-07-04] MEDS: Nystatin TOP POWDER* 15 GM BTL TOPICAL SCH ×2 (08:10→21:44)
--- NOTE | 2018-07-04 10:53 | PN ---
Progress Note - Progress Note Date of Service: 07/04/18 SOAP: Subjective: CC: Bilateral foot infection HPI: Mr. Tyson is a 67 yo male with PMH significant for morbid obesity, DM2, and CKD who presented to the hospital with concern for bilateral foot infection. He was originally treated for bilateral foot and infection and treated at [facility]. He is s/p partial amputation of the left foot for gangrene and I+D right foot. He continues to have a wound vac in place to the right foot and Orthopedics plans to discontinue the wound vac today. Denies fever, chills, abdominal pain, constipation, N/V/D, and pain. He states that he is feeling well. Objective: Vital Signs 07/04/18 08:23 Temperature 98.6 F Temperature Oral Source Pulse Rate 72 Respiratory 16 Rate Blood Pressure 124/64 (mmHg) Blood Pressure 84 Mean O2 Sat by Pulse 95 Oximetry Patient on Room Yes Air Physical Exam: General: NAD, laying in bed Neurological: Alert and Oriented Cardiovascular: Heart rate regular, no murmur Respiratory: Lung sounds clear bilateral Abdominal: Bowel sounds present, ABD soft, non tender and non distended Skin: Dressings clean, dry and intact to bilateral LEs Laboratory Tests 07/04/18 07/04/18 05:27 05:27 WBC 10.6 Hgb 8.5 L Hct 27 L Plt Count 522 H D Sodium 138 Potassium 4.1 Chloride 106 Carbon Dioxide 26 BUN 26 H Creatinine 1.24 H Glucose 87 Assessment: 1. Osteomyelitis and gangrene left foot, S/P amputation and wound vac dressing. Leukocytosis has resolved. Suspect that thyrombocytosis is reactive and will continue to improve as the infection improves. 2. Right foot cellulitis, s/p debridement of necrotic tissue 3. Morbid obesity 4. DM2 5. CKD Plan: Continue Vancomycin 1 gm BID, ceftriaxone 1 gm daily. Both day . Will need weekly CBC, CMP, CRP, and vanco trough level (goal 10-15). After completion of IV ABX will need Doxycycline 100 mg BID for 14 days. He should follow with ID outpatient in 1 month.
--- NOTE | 2018-07-04 15:39 | PN ---
Subjective Date of Service: 07/04/18 Interval History: Patient complains of 3/10 stable pain in B/L feet. Patient states this pain is tolerable. Patient denies F/C, N/V, abdominal pain, CP, SOB, or other pain. Patient is anxious for discharge. Family History: Unchanged from Admission Social History: Unchanged from Admission Past Medical History: Unchanged from Admission Objective Active Medications: Acetaminophen (Tylenol Tab*) 650 mg PO Q6H PRN PRN Reason: FEVER/PAIN Last Admin: 07/03/18 03:05 Dose: 650 mg Atorvastatin Calcium (Lipitor*) 20 mg PO BEDTIME [facility] Last Admin: 07/03/18 22:09 Dose: 20 mg Clotrimazole (Mycelex Hanane*) 10 mg PO FIVE TIMES DAILY [facility] Last Admin: 07/04/18 13:40 Dose: 10 mg Clotrimazole (Clotrimazole 1%*) 1 applic TOPICAL QID [facility] Last Admin: 07/04/18 13:41 Dose: 1 applic Dextrose (D50w Syringe 50 Ml*) 12.5 gm IV PUSH .FOR FS < 60 - SS PRN PRN Reason: FS < 60 Glipizide (Glucotrol Tab*) 10 mg PO 0800,1700 [facility] Last Admin: 07/04/18 07:53 Dose: 10 mg Heparin Sodium (Porcine) (Heparin Vial(*)) 5,000 units SUBCUT Q8HR [facility] Last Admin: 07/04/18 13:40 Dose: 5,000 units Heparin Sodium (Porcine) (Heparin Flush Picc/Ml/Cvc(*)) 1 - 3 ml FLUSH 0600, 1800 [facility]; Protocol Last Admin: 07/04/18 05:23 Dose: 1 ml Vancomycin HCl 1,000 mg/ (Sodium Chloride) 250 mls @ 166.667 mls/hr IVPB Q12H [facility] Last Admin: 07/04/18 03:30 Dose: 166.667 mls/hr Ceftriaxone Sodium 1 gm/ (Sodium Chloride) 50 mls @ 200 mls/hr IVPB Q24H [facility] Last Admin: 07/03/18 16:00 Dose: 200 mls/hr Insulin Human Lispro (Humalog*) 0 units SUBCUT ACHS [facility]; Protocol Last Admin: 07/04/18 13:40 Dose: 3 units Lisinopril (Prinivil Tab*) 2.5 mg PO DAILY [facility] Last Admin: 07/04/18 07:49 Dose: 2.5 mg Meclizine HCl (Antivert Tab*) 25 mg PO Q8HR PRN PRN Reason: DIZZINESS Metformin HCl (Glucophage*) 500 mg PO BID WITH MEALS [facility] Last Admin: 07/04/18 07:53 Dose: 500 mg Morphine Sulfate (Morphine Inj ((Syringe))*) 2 mg IV Q3H PRN PRN Reason: SEVERE PAIN Last Admin: 07/03/18 16:41 Dose: 2 mg Nystatin (Nystatin Top Powder*) 1 applic TOPICAL BID [facility] Last Admin: 07/04/18 08:10 Dose: 1 applic Ondansetron HCl (Zofran Inj*) 4 mg IV Q6H PRN PRN Reason: NAUSEA Oxycodone HCl (Oxycontin(*)) 20 mg PO Q12HR [facility] Last Admin: 07/04/18 07:50 Dose: 20 mg Oxycodone HCl (Roxycodone Tab*) 10 mg PO Q4H PRN PRN Reason: PAIN Last Admin: 07/04/18 13:40 Dose: 10 mg Pharmacy Consult (Vancomycin Per Pharmacy*) 1 note FOLLOW UP .VANC PER PHARMACY [facility] Pharmacy Profile Note (Vancomycin Trough Check) 1 note FOLLOW UP 1430 ONE Stop: 07/05/18 14:31 Polyethylene Glycol/Electrolytes (Miralax*) 17 gm PO BID [facility] Last Admin: 07/04/18 08:10 Dose: Not Given Tamsulosin HCl (Flomax Cap*) 0.4 mg PO DAILY [facility] Last Admin: 07/04/18 07:50 Dose: 0.4 mg Vital Signs - 8 hr 07/04/18 07/04/18 07/04/18 07:50 08:00 08:23 Temperature 98.6 F Pulse Rate 72 Respiratory 18 18 16 Rate Blood Pressure 124/64 (mmHg) O2 Sat by Pulse 95 Oximetry 07/04/18 07/04/18 07/04/18 12:24 12:32 13:40 Temperature 98.2 F Pulse Rate 105 Respiratory 18 16 18 Rate Blood Pressure 121/66 (mmHg) O2 Sat by Pulse 94 Oximetry Oxygen Devices in Use Now: None Appearance: Patient is a 67yo male who appears stated age and is sitting in the bed in [facility]. Eyes: No Scleral Icterus, PERRLA Ears/Nose/Mouth/Throat: NL Teeth, Lips, Gums, Clear Oropharnyx, Mucous Membranes Moist Neck: NL Appearance and Movements; NL JVP, Trachea Midline Respiratory: Symmetrical Chest Expansion and Respiratory Effort, Clear to Auscultation Cardiovascular: NL Sounds; No Murmurs; No JVD, RRR, No Edema Abdominal: NL Sounds; No Tenderness; No Distention, No Hepatosplenomegaly Lymphatic: No Cervical Adenopathy Extremities: No Clubbing, Cyanosis, - - B/L Foot wrapping with wound vac in place. Skin: No Nodules or Sclerosis Neurological: Alert and Oriented x 3, NL Sensation, NL Muscle Strength and Tone Result Diagrams: 07/04/18 05:27 07/04/18 05:27 Microbiology and Other Data: Microbiology 06/21/18 20:05 Nasal Screen MRSA (PCR) - Final Nasal Mrsa Detected 06/21/18 17:25 Skin and Soft Tissue MRSA/MSSA (PCR - Final Foot Left Mrsa Negative S.aureus Negative Gram Stain - Final Assess/Plan/Problems-Billing Assessment: 67 yo m with h/o DM, CKD, HTN who suffered from multiple b/l foot wounds after trying to break up a dog fight 06/03/18. Transferred to [facility] and had b/l foot surgery on 06/04/18 with left forth toe amputation and multiple wound sutured and left great toe pinned. Transferred to [facility] on 06/21/18 and back to our ED the same day after staff at [facility] noted gangrene on left 3rd toe who is S/P 3 procedures and is improving slowly with IV antibiotics. - Patient Problems (1) Osteomyelitis Current Visit: Yes Status: Acute Code(s): M86.9 - OSTEOMYELITIS, UNSPECIFIED SNOMED Code(s): 93727954 Comment: - 3rd and forth metatarsal , s/p left midfoot amputation on 06/23/18. - S/p r foot debridement and Vac placement on 06/24/18, repeat debridement with closure L foot wound 06/27/18. WoundVac R foot on 06/28. - OR with debridement of the right foot on 07/01, dresssing changed to left foot - Cont ceftriaxone, vancomycin, day - Cx positive for E. coli, MRSA, and bacterioides - Oycodone SR starting 06/26 PM. - Flagyl stopped, will need IV ABX at rehab. (2) Gangrene of foot Current Visit: Yes Status: Acute Code(s): I96 - GANGRENE, NOT ELSEWHERE CLASSIFIED SNOMED Code(s): 979289771 Comment: - Wet gangrene on admission - continue antibiotics as above - ID consulted (3) Anemia Current Visit: Yes Status: Acute Code(s): D64.9 - ANEMIA, UNSPECIFIED SNOMED Code(s): 300820178 Comment: - Stable, Normocytic - No signs of acute bleeding (4) CKD (chronic kidney disease) stage 3, GFR 30-59 ml/min Current Visit: Yes Status: Acute Code(s): N18.3 - CHRONIC KIDNEY DISEASE, STAGE 3 (MODERATE) SNOMED Code(s): 921779460 Comment: - Improved from admsission - stable - Continue to Monitor (5) DM2 (diabetes mellitus, type 2) Current Visit: Yes Status: Acute Comment: - Glipizide increased to 5 mg bid 06/29 PM, cont ISS. - Resume Metformin - Moderately good control (6) HTN (hypertension) Current Visit: Yes Status: Acute Code(s): I10 - ESSENTIAL (PRIMARY) HYPERTENSION SNOMED Code(s): 77952409 Comment: - Normotensive - Continue Lisinopril (7) DVT prophylaxis Current Visit: Yes Status: Acute Code(s): UCT4830 - SNOMED Code(s): 326598560 Comment: - HSQ (8) Full code status Current Visit: Yes Status: Acute Code(s): Z78.9 - OTHER SPECIFIED HEALTH STATUS SNOMED Code(s): 264896241 Status and Disposition: Inpatient, will need TITO for buttermaker ABX and rehab at D/C. Anticipate D/C Tomorrow.
[2018-07-04] MEDS: cefTRIAXone(*) 1 GM in NS 0.9% 50 ML* 50 ML IVPB SCH (16:08)
--- NOTE | 2018-07-04 16:44 | PN ---
Progress Note - Progress Note Date of Service: 07/04/18 SOAP: Subjective: []Pt seen and examined at bedside, he is feeling well. Pain of LE well controlled at this time. Denies fever, chills, CP, SOB, dizziness. Objective: []Gen: NAD at rest laying in bed RLE: wound vac removed, open area roughly 5cm x 0.5 cm on the plantar and medial side of the great toe with granulation tissue without purulence. dorsum of foot with two scabbed over areas one quarter sized, one dime sized. There is no erythema or drainage. Betadine dressing, kerlix, ricardo applied. Sensation intact to light touch distally, capillary refill less than two seconds distally. LLE: Dressing C/D/I, no erythema proximal to splint. Assessment: S/P Repeat I&D Right foot, recheck L foot wound Plan: NWB LLE, Heel WB RLE transfers only. Darco shoe ordered for right foot Cont current pain medication Cont abx per ID - ceftriaxone and vanco Anticipate rehab placement tomorrow Dr Baum to direct betadine dressing changes Vital Signs Temp 98.3 F 07/04/18 15:36 Pulse 92 07/04/18 15:36 Resp 16 07/04/18 15:36 BP 119/68 07/04/18 15:36 Pulse Ox 96 07/04/18 15:36 Intake & Output 07/03/18 07/04/18 07/04/18 18:59 06:59 18:59 Intake Total 520 980 555 Output Total 1500 2300 1200 Balance -980 1320 -645 Intake: IV Fluids 40 NS (0.9%) 40 IVPB 55 ABX - CEFTRIAXONE 55 Medicated IV 100 Magnesium 100 Oral 520 980 360 Output: Urine 900 Ordonez 1500 2300 300 Other: Date of Last Bowel 07/03/18 Movement # Bowel Movements 1 0 Estimated Stool Amount Small Laboratory Last Values WBC 10.6 10^3/uL (3.5-10.8) 07/04/18 05:27 RBC 3.15 10^6 /uL (4.18-5.48) L 07/04/18 05:27 Hgb 8.5 g/dL (14.0-18.0) L 07/04/18 05:27 Hct 27 % (36-46) L 07/04/18 05:27 MCV 84 fL (80-94) 07/04/18 05:27 MCH 27 pg (27-31) 07/04/18 05:27 MCHC 32 g/dL (31-36) 07/04/18 05:27 RDW 15 % (10.5-15) 07/04/18 05:27 Plt Count 522 10^3/uL (150-450) H D 07/04/18 05:27 MPV 7.6 fL (7.4-10.4) 07/04/18 05:27 Neut % (Auto) 59.8 % 07/04/18 05:27 Lymph % (Auto) 28.5 % 07/04/18 05:27 [place] % (Auto) 8.6 % 07/04/18 05:27 Eos % (Auto) 1.8 % 07/04/18 05:27 Baso % (Auto) 1.3 % 07/04/18 05:27 Absolute Neuts (auto) 6.3 10^3/ul (1.5-7.7) 07/04/18 05:27 Absolute Lymphs (auto) 3.0 10^3/ul (1.0-4.8) 07/04/18 05:27 Absolute Monos (auto) 0.9 10^3/ul (0-0.8) H 07/04/18 05:27 Absolute Eos (auto) 0.2 10^3/ul (0-0.6) 07/04/18 05:27 Absolute Basos (auto) 0.1 10^3/ul (0-0.2) 07/04/18 05:27 Absolute Nucleated RBC 0 10^3/ul 07/04/18 05:27 Nucleated RBC % 0.1 07/04/18 05:27 INR (Anticoag Therapy) 1.29 (0.77-1.02) H 06/27/18 06:40 APTT 30.6 seconds (26.0-36.3) 06/25/18 14:02 Sodium 138 mmol/L (135-145) 07/04/18 05:27 Potassium 4.1 mmol/L (3.5-5.0) 07/04/18 05:27 Chloride 106 mmol/L (101-111) 07/04/18 05:27 Carbon Dioxide 26 mmol/L (22-32) 07/04/18 05:27 Anion Gap 6 mmol/L (2-11) 07/04/18 05:27 BUN 26 mg/dL (6-24) H 07/04/18 05:27 Creatinine 1.24 mg/dL (0.67-1.17) H 07/04/18 05:27 Est GFR ( Amer) 70.6 (>60) 07/04/18 05:27 Est GFR (Non-Af Amer) 58.3 (>60) 07/04/18 05:27 BUN/Creatinine Ratio 21.0 (8-20) H 07/04/18 05:27 Glucose 87 mg/dL (70-100) 07/04/18 05:27 POC Glucose (mg/dL) 159 mg/dL (70-100) H 07/04/18 12:18 Hemoglobin A1c 7.6 % (4.0-5.6) H 06/21/18 16:30 Lactic Acid 1.0 mmol/L (0.5-2.0) 06/21/18 19:20 Calcium 8.6 mg/dL (8.6-10.3) 07/04/18 05:27 Magnesium 1.6 mg/dL (1.9-2.7) L 07/04/18 05:27 Total Bilirubin 0.40 mg/dL (0.2-1.0) 06/21/18 16:30 AST 22 U/L (13-39) 06/21/18 16:30 ALT 32 U/L (7-52) 06/21/18 16:30 Alkaline Phosphatase 61 U/L (34-104) 06/21/18 16:30 C-Reactive Protein 194.06 mg/L (<8.01) H 06/21/18 16:30 Total Protein 7.6 g/dL (6.4-8.9) 06/21/18 16:30 Albumin 3.4 g/dL (3.2-5.2) 06/21/18 16:30 Globulin 4.2 g/dL (2-4) H 06/21/18 16:30 Albumin/Globulin Ratio 0.8 (1-3) L 06/21/18 16:30 Urine Color Yellow 06/22/18 09:36 Urine Appearance Turbid 06/22/18 09:36 Urine pH 7.0 (5-9) 06/22/18 09:36 Ur Specific [place] 1.010 (1.010-1.030) 06/22/18 09:36 Urine Protein 1+(30 mg/dl) (Negative) A 06/22/18 09:36 Urine Ketones Negative (Negative) 06/22/18 09:36 Urine Blood 1+ (Negative) A 06/22/18 09:36 Urine Nitrate Negative (Negative) 06/22/18 09:36 Urine Bilirubin Negative (Negative) 06/22/18 09:36 Urine Urobilinogen Negative (Negative) 06/22/18 09:36 Ur Leukocyte Esterase 2+ (Negative) A 06/22/18 09:36 Urine WBC (Auto) 3+(>20/hpf) (Absent) A 06/22/18 09:36 Urine RBC (Auto) 3+(>10/hpf) (Absent) A 06/22/18 09:36 Urine Bacteria Absent (Absent) 06/22/18 09:36 Urine Glucose Negative (Negative) 06/22/18 09:36 Vancomycin Trough 17.6 mcg/mL 06/30/18 14:38
[2018-07-04] MEDS: Atorvastatin* 20 MG TAB PO SCH (21:42)
[2018-07-05] MEDS: Vancomycin(*) 1,000 MG in NS 0.9% 250 ML* 250 ML IVPB SCH ×2 (03:16→18:30)
[2018-07-05] MEDS: Heparin VIAL(*) 5000 UNITS/ML VIAL (FIVE THOUSAND) SUBCUT SCH ×3 (06:29→22:39)
[2018-07-05] MEDS: Clotrimazole TROCHE* 10 MG TROCHE PO SCH ×5 (06:29→20:51)
[2018-07-05 06:57] LABS: ABS Basophils 0.1 10^3/ul (0-0.2); ABS Eosinophils 0.3 10^3/ul (0-0.6); ABS Lymphocytes 2.8 10^3/ul (1.0-4.8); ABS Monocytes 0.9 10^3/ul (0-0.8); ABS Neutrophils 6.7 10^3/ul (1.5-7.7); ABS Nucleated RBC 0 10^3/ul; Eosinophil % 3.1 %; Hematocrit 27 % (36-46); Hemoglobin 8.6 g/dL (14.0-18.0); Lymphocyte % 25.8 %; Mean Corpuscular HGB Conc 32 g/dL (31-36); Mean Corpuscular Hemoglobin 27 pg (27-31); Mean Corpuscular Volume 84 fL (80-94); Mean Platelet Volume 7.6 fL (7.4-10.4); Nucleated Red Blood Cells % 0; Platelet Count 529 10^3/uL (150-450); Red Blood Count 3.21 10^6 /uL (4.18-5.48); Red Cell Distribution Width 15 % (10.5-15); White Blood Count 10.8 10^3/uL (3.5-10.8)
[2018-07-05 07:17] LABS: EGFR African American 79.4 (>60); EGFR Non-African American 65.6 (>60)
[2018-07-05] MEDS: Insulin LISPRO* 1 UNITS UNIT SUBCUT SCH ×4 (09:05→20:54)
[2018-07-05] MEDS: metFORMIN* 500 MG TAB PO SCH ×2 (09:16→17:40)
[2018-07-05] MEDS: oxyCODONE SR TAB(*) 20 MG TAB.SR PO SCH ×2 (09:16→20:51)
[2018-07-05] MEDS: Lisinopril TAB* 5 MG PO SCH (09:16)
[2018-07-05] MEDS: Tamsulosin CAP* 0.4 MG PO SCH (09:16)
[2018-07-05] MEDS: glipiZIDE TAB* 5 MG PO SCH ×2 (09:16→17:40)
[2018-07-05] MEDS: Nystatin TOP POWDER* 15 GM BTL TOPICAL SCH ×2 (09:17→20:53)
[2018-07-05] MEDS: Clotrimazole 1% CREAM* 45 GM TOPICAL SCH ×4 (09:17→20:53)
[2018-07-05] MEDS: Polyethylene Glycol 3350* 17 GM PACKET PO SCH ×2 (09:18→20:54)
--- NOTE | 2018-07-05 11:07 | DS ---
CC: Dr. Lora Monterroso * DATE OF ADMISSION: 06/21/2018. DATE OF DISCHARGE: 07/05/2018. PRIMARY CARE PHYSICIAN: Dr. Lora Monterroso. MY ATTENDING PHYSICIAN WHILE IN THE HOSPITAL: Dr. Kanu Rae * (dictated by CONSTANTIN Chacko). PRIMARY DISCHARGE DIAGNOSES: Complications of bilateral lower extremity dog bites, foot gangrene and osteomyelitis of the left foot, multiple orthopedic debridements and amputations of the bilateral feet, acute urinary retention resolved. SECONDARY DISCHARGE DIAGNOSES: Diabetes mellitus type 2, hypertension, BPH, chronic kidney disease. STUDIES DONE WHILE IN THE HOSPITAL: 1. Foot x-ray from 06/21/2018, read as: Soft tissue swelling and gas within the soft tissues suggestive of an infectious necrotizing process. Postsurgical changes in the great toe. There is joint space narrowing and erosive change in the interphalangeal joint of the great toe possibly indicating a septic arthritis, postsurgical change or an inflammatory arthropathy. 2. Lower extremity CT from 06/21/2018, read as: Osteomyelitis and gangrene involving the third and fourth metatarsals of the left foot. Subtle acute chip fracture of the first metatarsal head. MEDICATIONS AT DISCHARGE: 1. Metformin 500 mg p.o. b.i.d. 2. Ibuprofen 800 mg p.o. q.8 hours as needed. 3. Lipitor 20 mg p.o. at bedtime. 4. Glipizide 10 mg p.o. b.i.d. 5. Flomax 0.4 mg p.o. daily. 6. MiraLax 17 gm p.o. daily. 7. Oxycodone 10 mg p.o. q.4 hours as needed. 8. Docusate 100 mg p.o. b.i.d. 9. Tylenol 650 mg p.o. q.6 hours as needed. 10. Ceftriaxone IV 1 gm q.24 hours times 7. 11. Clotrimazole cream 1% topical q.i.d. as needed. 12. Heparin PICC flush 1 to 3 ml b.i.d. per protocol. 13. Humalog sliding scale insulin high dose a.c. at bedtime. 14. Lisinopril 2.5 mg p.o. daily. 15. Meclizine 25 mg p.o. q.8 hours as needed for dizziness. 16. Nystatin topical powder one application topical b.i.d. as needed. 17. OxyContin 20 mg p.o. q.12 hours. 18. Vancomycin 1,000 mg IV b.i.d. times 13 doses. 19. Lovenox 40 mg subcutaneous q.24 hours times 27 more doses. New medications at discharge: Lovenox, Vancomycin, Oxycodone, OxyContin, Nystatin, Meclizine, Lisinopril, insulin Lispro, Heparin flush, Clotrimazole cream, Ceftriaxone, Tylenol. Medications discontinued at discharge: Lisinopril 10 mg p.o. daily, Oxycodone 2.5 mg p.o. q.4 hours as needed, Clotrimazole Hanane 10 mg p.o. 5 times a day. HOSPITAL COURSE: This is a brief summary of the patient's presentation. For more details, please see history and physical from CONSTANTIN Chacko on 2018. In brief, the patient is a 67-year-old male with a past medical history significant for the above who was hospitalized directly before admission at [facility] for repair of lacerations to his feet and a fourth toe amputation on his left foot. The patient's injuries were initially sustained in late May when his feet were mauled by two dogs. The patient at [place] also had the flu which had cleared and acute urinary retention and had a Ordonez placed at that time. The patient was sent to [facility] for rehab, but upon arrival to [facility] was found to have a necrotic third toe on his left foot and was referred to the emergency department. The patient, in the emergency department, received Zosyn and Linezolid. The patient had acute kidney injury which resolved. The patient was seen in consultation by Dr. Kanu Baum of Orthopedic Surgery who had concern for gangrene. The patient was taken initially to the operating room on 06/23/2018 for a left midfoot amputation with wound VAC placement. The patient was seen in consultation by Dr. Leonel Olmedo who changed his antibiotics to Vancomycin and Zosyn. The patient's cultures from his wound showed E. coli, bacteroides, and MRSA. The patient was continued on Zosyn and Vancomycin and was then transitioned to Vancomycin, Ceftriaxone, and Flagyl. The patient went back to the operating room on 06/24/2018 for debridement of the soft tissue of the right medial forefoot also with a wound VAC placed. The patient was diagnosed with osteomyelitis based on culture data. The patient had no adverse effects related to his multiple orthopedic procedures. The patient's blood glucose was able to maintained adequately with insulin sliding scale and his Glipizide and Metformin which are his home medications were reintroduced. The patient's lowest hemoglobin was 8.5 and was 8.6 on discharge. The patient had acute kidney injury upon presentation that resolved. The patient was again taken to the operating room on 06/27/2018 for repeat debridement and replacement of wound VAC. The patient was continued on antibiotics. The patient had no significant changes during this time. The patient was taken back to the operating room on 07/01/2018 for I and D and partial closure of the right forefoot. The patient's Ordonez was able to be removed on 07/03/2018 and he was able to void adequately without retention. It is recommended that the patient continue antibiotics for a total of 21 days. The patient was transitioned off of wound VAC onto Betadine dressings on 2018. The patient was able to work with Physical Therapy, but was unable to progress beyond using a Estefany for transfers given multiple orthopedic procedures. The patient's Flagyl was discontinued on 07/02/2018. The patient had significant issues with pain control and was started on Oxycodone and OxyContin as above. The patient was stable and amenable for discharge on 2018. PHYSICAL EXAMINATION ON THE DATE OF DISCHARGE: General: The patient is a 67- year- old male who appears his stated age, sitting comfortably in bed in no acute distress. Vital Signs at the time of evaluation: Temperature 98.5, pulse rate 82, respiratory rate 18, oxygen saturation 97 percent on room air, blood pressure 136/79. HEENT: Head normocephalic, atraumatic. Sclerae nonicteric. No conjunctival injection. Nasal mucosa moist. Oral mucosa moist. No pharyngeal erythema, discharge, or exudate. Neck: Supple, nontender. No lymphadenopathy. No carotid bruits auscultated. No JVD. Cardiac: Regular rate and rhythm. No clicks, murmurs, gallops, or rubs. Pulses are 2+ in the bilateral radial areas. Pulses are 1+ in the bilateral dorsalis pedis areas felt through dressing. Unable to feel bilateral posterior tibialis pulses due to amputations. Respiratory: Clear to auscultation bilaterally. No wheezes, rales, or rhonchi. Good air exchange bilaterally. Abdomen: Soft, nontender, nondistended. Bowel sounds present. Normoactive in all four quadrants. No hepatosplenomegaly. No abdominal bruits auscultated. No hepatojugular reflux. Genitourinary: No suprapubic or CVA tenderness. Skin: Clean, dry, and intact. No rash. Neuro: Cranial nerves II through XII intact. No focal deficits. Alert and oriented times three. Psychiatric: Pleasant and cooperative. DISCHARGE PLAN: The patient will be discharged to a nursing facility in [place] for subacute rehab. The patient should follow-up with Dr. Baum in seven to ten days. The patient will have Betadine dressings to his right foot and will have the splint kept in place on his left foot. The patient should be continued on Vancomycin and Ceftriaxone for seven more days as above. The patient, given his obesity, orthopedic procedures, and low mobility, will be continued on Lovenox for DVT prophylaxis for a total of 30 days, this should be twenty-seven more doses. The patient should be heel weightbearing on his right foot only for transfers and can be advanced when cleared by Orthopedics. The patient will be on insulin sliding scale, Glipizide, and Metformin with fingersticks a.c. and at bedtime. The patient should have Doxycycline 100 mg b.i.d. for 14 days after he finished IV antibiotics. The patient will follow-up with Dr. Leonel Olmedo of Infectious Disease one month after he is discharged. The patient should have a consistent carbohydrate diet and engage in activity as tolerated working with Physical Therapy and Occupational Therapy with the restrictions as above. TIME SPENT: Approximately 60 minutes were spent in the discharge of this patient, 30 of which were spent [id number] with the patient obtaining history and physical and discussing treatment plan. CONSTANTIN CHACKO [id number]/CPS #: [id number] RAUL
--- NOTE | 2018-07-05 14:01 | PN ---
Progress Note - Progress Note Date of Service: 07/05/18 SOAP: Subjective: []Patient seen OOB with Laina RN. No new ortho complaints. Was hoping to go to rehab today but authorization yet to be obtained. Objective: [] Vital Signs Temp 98.6 F 07/05/18 12:14 Pulse 88 07/05/18 12:14 Resp 16 07/05/18 12:14 BP 153/70 07/05/18 12:14 Pulse Ox 97 07/05/18 04:34 Intake & Output 07/04/18 07/05/18 07/05/18 18:59 06:59 18:59 Intake Total 1085 490 Output Total 8870 168 9329 Balance -115 -410 -1000 Intake: IV Fluids 60 NS (0.9%) 60 IVPB 325 250 ABX - CEFTRIAXONE 55 abx - vanco 270 250 Medicated IV 100 Magnesium 100 Oral 600 240 Output: Urine 352 485 6641 Ordonez 300 Other: # Bowel Movements 0 1 Estimated Stool Amount Medium Laboratory Results - last 24 hr 07/04/18 07/04/18 07/05/18 16:44 21:33 06:30 WBC 10.8 RBC 3.21 L Hgb 8.6 L Hct 27 L MCV 84 MCH 27 MCHC 32 RDW 15 Plt Count 529 H MPV 7.6 Neut % (Auto) 62.2 Lymph % (Auto) 25.8 [place] % (Auto) 7.9 Eos % (Auto) 3.1 Baso % (Auto) 1.0 Absolute Neuts (auto) 6.7 Absolute Lymphs (auto) 2.8 Absolute Monos (auto) 0.9 H Absolute Eos (auto) 0.3 Absolute Basos (auto) 0.1 Absolute Nucleated RBC 0 Nucleated RBC % 0 BUN Creatinine Est GFR ( Amer) Est GFR (Non-Af Amer) POC Glucose (mg/dL) 183 H 185 H 07/05/18 07/05/18 07/05/18 06:30 07:48 11:50 WBC RBC Hgb Hct MCV MCH MCHC RDW Plt Count MPV Neut % (Auto) Lymph % (Auto) [place] % (Auto) Eos % (Auto) Baso % (Auto) Absolute Neuts (auto) Absolute Lymphs (auto) Absolute Monos (auto) Absolute Eos (auto) Absolute Basos (auto) Absolute Nucleated RBC Nucleated RBC % BUN 20 Creatinine 1.12 Est GFR ( Amer) 79.4 Est GFR (Non-Af Amer) 65.6 POC Glucose (mg/dL) 88 101 H LLE splint dry and intact Right LE dressings removed. quarter sized soft necrotic area dorsum distal foot, no purulent drainage, incision medial MTP area benign new betadine wet to dry dressings, Kerlex and DAWSON wrap applied Assessment: [] Plan: []Daily wet to dry betadine dressing changes as above right foot, LLE splint to remain intact NWB BLE Continue Vanco/ Ceftriaxone as ordered Transfer to rehab Sunday
[2018-07-05] MEDS: oxyCODONE TAB* 5 MG TAB PO PRN ×2 (14:27→22:43)
[2018-07-05] MEDS ORDERED: Vancomycin Trough Check NOTE FOLLOW UP ONE (14:30)
[2018-07-05] MEDS: cefTRIAXone(*) 1 GM in NS 0.9% 50 ML* 50 ML IVPB SCH (15:34)
[2018-07-05] MEDS: Atorvastatin* 20 MG TAB PO SCH (20:51)
[2018-07-05] MEDS: Vancomycin(*) 750 MG in NS 0.9% 250 ML* 250 ML IVPB SCH (20:51)
[2018-07-06] MEDS: Heparin VIAL(*) 5000 UNITS/ML VIAL (FIVE THOUSAND) SUBCUT SCH ×3 (06:05→22:16)
[2018-07-06] MEDS: Clotrimazole TROCHE* 10 MG TROCHE PO SCH ×5 (06:06→22:14)
[2018-07-06] MEDS: Insulin LISPRO* 1 UNITS UNIT SUBCUT SCH ×4 (09:12→21:12)
[2018-07-06] MEDS: Vancomycin(*) 750 MG in NS 0.9% 250 ML* 250 ML IVPB SCH ×2 (09:22→21:00)
[2018-07-06] MEDS: oxyCODONE SR TAB(*) 20 MG TAB.SR PO SCH ×2 (09:23→21:03)
[2018-07-06] MEDS: Clotrimazole 1% CREAM* 45 GM TOPICAL SCH ×4 (09:24→21:05)
[2018-07-06] MEDS: glipiZIDE TAB* 5 MG PO SCH ×2 (09:24→18:04)
[2018-07-06] MEDS: metFORMIN* 500 MG TAB PO SCH ×2 (09:24→18:03)
[2018-07-06] MEDS: Lisinopril TAB* 5 MG PO SCH (09:25)
[2018-07-06] MEDS: Tamsulosin CAP* 0.4 MG PO SCH (09:26)
[2018-07-06] MEDS: Nystatin TOP POWDER* 15 GM BTL TOPICAL SCH ×2 (09:26→22:15)
[2018-07-06] MEDS: Polyethylene Glycol 3350* 17 GM PACKET PO SCH ×2 (09:26→21:09)
--- NOTE | 2018-07-06 12:49 | PN ---
Subjective Date of Service: 07/06/18 Interval History: Patient has stable pain in B/L LE. Patient denies CP, SOB, N/V, abdominal pain, diarrhea, CP, SOB, dysuria. Patient appears down about delay in discharge. Family History: Unchanged from Admission Social History: Unchanged from Admission Past Medical History: Unchanged from Admission Objective Active Medications: Acetaminophen (Tylenol Tab*) 650 mg PO Q6H PRN PRN Reason: FEVER/PAIN Last Admin: 07/03/18 03:05 Dose: 650 mg Atorvastatin Calcium (Lipitor*) 20 mg PO BEDTIME [facility] Last Admin: 07/05/18 20:51 Dose: 20 mg Clotrimazole (Mycelex Hanane*) 10 mg PO FIVE TIMES DAILY [facility] Last Admin: 07/06/18 09:23 Dose: 10 mg Clotrimazole (Clotrimazole 1%*) 1 applic TOPICAL QID [facility] Last Admin: 07/06/18 09:24 Dose: 1 applic Dextrose (D50w Syringe 50 Ml*) 12.5 gm IV PUSH .FOR FS < 60 - SS PRN PRN Reason: FS < 60 Glipizide (Glucotrol Tab*) 10 mg PO 0800,1700 [facility] Last Admin: 07/06/18 09:24 Dose: 10 mg Heparin Sodium (Porcine) (Heparin Vial(*)) 5,000 units SUBCUT Q8HR [facility] Last Admin: 07/06/18 06:05 Dose: 5,000 units Heparin Sodium (Porcine) (Heparin Flush Picc/Ml/Cvc(*)) 1 - 3 ml FLUSH 0600, 1800 [facility]; Protocol Last Admin: 07/06/18 06:05 Dose: 1 ml Ceftriaxone Sodium 1 gm/ (Sodium Chloride) 50 mls @ 200 mls/hr IVPB Q24H [facility] Last Admin: 07/05/18 15:34 Dose: 200 mls/hr Vancomycin HCl 750 mg/ Sodium (Chloride) 250 mls @ 166.667 mls/hr IVPB Q12H [facility] Last Admin: 07/06/18 09:22 Dose: 166.667 mls/hr Insulin Human Lispro (Humalog*) 0 units SUBCUT ACHS [facility]; Protocol Last Admin: 07/06/18 09:12 Dose: Not Given Lisinopril (Prinivil Tab*) 2.5 mg PO DAILY [facility] Last Admin: 07/06/18 09:25 Dose: 2.5 mg Meclizine HCl (Antivert Tab*) 25 mg PO Q8HR PRN PRN Reason: DIZZINESS Metformin HCl (Glucophage*) 500 mg PO BID WITH MEALS [facility] Last Admin: 07/06/18 09:24 Dose: 500 mg Morphine Sulfate (Morphine Inj ((Syringe))*) 2 mg IV Q3H PRN PRN Reason: SEVERE PAIN Last Admin: 07/03/18 16:41 Dose: 2 mg Nystatin (Nystatin Top Powder*) 1 applic TOPICAL BID [facility] Last Admin: 07/06/18 09:26 Dose: Not Given Ondansetron HCl (Zofran Inj*) 4 mg IV Q6H PRN PRN Reason: NAUSEA Oxycodone HCl (Oxycontin(*)) 20 mg PO Q12HR [facility] Last Admin: 07/06/18 09:23 Dose: 20 mg Oxycodone HCl (Roxycodone Tab*) 10 mg PO Q4H PRN PRN Reason: PAIN Last Admin: 07/05/18 22:43 Dose: 10 mg Pharmacy Consult (Vancomycin Per Pharmacy*) 1 note FOLLOW UP .VANC PER PHARMACY [facility] Pharmacy Profile Note (Vancomycin Trough Check) 1 note FOLLOW UP ONCE ONE Stop: 07/07/18 08:31 Polyethylene Glycol/Electrolytes (Miralax*) 17 gm PO BID [facility] Last Admin: 07/06/18 09:26 Dose: Not Given Tamsulosin HCl (Flomax Cap*) 0.4 mg PO DAILY [facility] Last Admin: 07/06/18 09:26 Dose: 0.4 mg Vital Signs - 8 hr 07/06/18 07/06/18 07/06/18 06:11 07:18 07:30 Temperature 97.9 F Pulse Rate 81 Respiratory 17 17 18 Rate Blood Pressure 160/81 (mmHg) O2 Sat by Pulse 95 Oximetry 07/06/18 07/06/18 07/06/18 08:00 09:23 11:30 Temperature 97.3 F Pulse Rate 80 Respiratory 18 18 20 Rate Blood Pressure 159/80 (mmHg) O2 Sat by Pulse 97 Oximetry 07/06/18 11:58 Temperature Pulse Rate Respiratory 18 Rate Blood Pressure (mmHg) O2 Sat by Pulse Oximetry Oxygen Devices in Use Now: None Appearance: Patient is a 67yo male who appears stated age and is sitting in the bed in [facility]. Eyes: No Scleral Icterus, PERRLA Ears/Nose/Mouth/Throat: NL Teeth, Lips, Gums, Clear Oropharnyx, Mucous Membranes Moist Neck: NL Appearance and Movements; NL JVP, Trachea Midline Respiratory: Symmetrical Chest Expansion and Respiratory Effort, Clear to Auscultation Cardiovascular: NL Sounds; No Murmurs; No JVD, RRR, No Edema Abdominal: NL Sounds; No Tenderness; No Distention, No Hepatosplenomegaly Lymphatic: No Cervical Adenopathy Extremities: No Edema, No Clubbing, Cyanosis, - - Left Forefoot/midfoot surgically absent, splinted and covered in bulky dressing. Right foot covered un bulky dressing. Skin: No Nodules or Sclerosis Neurological: Alert and Oriented x 3, NL Sensation, NL Muscle Strength and Tone , - - CN II-XII intact. Result Diagrams: 07/05/18 06:30 07/05/18 06:30 Microbiology and Other Data: Microbiology 06/21/18 20:05 Nasal Screen MRSA (PCR) - Final Nasal Mrsa Detected 06/21/18 17:25 Skin and Soft Tissue MRSA/MSSA (PCR - Final Foot Left Mrsa Negative S.aureus Negative Gram Stain - Final Assess/Plan/Problems-Billing Assessment: 67 yo m with h/o DM, CKD, HTN who suffered from multiple b/l foot wounds after trying to break up a dog fight 06/03/18. Transferred to [facility] and had b/l foot surgery on 06/04/18 with left forth toe amputation and multiple wound sutured and left great toe pinned. Transferred to [facility] on 06/21/18 and back to our ED the same day after staff at [facility] noted gangrene on left 3rd toe who is S/P 3 procedures and is improving slowly with IV antibiotics. - Patient Problems (1) Osteomyelitis Current Visit: Yes Status: Acute Code(s): M86.9 - OSTEOMYELITIS, UNSPECIFIED SNOMED Code(s): 38519998 Comment: - 3rd and forth metatarsal , s/p left midfoot amputation on 06/23/18. - S/p r foot debridement and Vac placement on 06/24/18, repeat debridement with closure L foot wound 06/27/18. WoundVac R foot on 06/28. - OR with debridement of the right foot on 07/01, dresssing changed to left foot - Cont ceftriaxone, vancomycin, day - Cx positive for E. coli, MRSA, and bacterioides - Oycodone SR starting 3 PM. - Flagyl stopped, will need IV ABX at rehab. (2) Gangrene of foot Current Visit: Yes Status: Acute Code(s): I96 - GANGRENE, NOT ELSEWHERE CLASSIFIED SNOMED Code(s): 644035742 Comment: - Wet/dry gangrene on admission - continue antibiotics as above - ID input appreciated (3) Anemia Current Visit: Yes Status: Acute Code(s): D64.9 - ANEMIA, UNSPECIFIED SNOMED Code(s): 388604846 Comment: - Stable, Normocytic - No signs of acute bleeding (4) CKD (chronic kidney disease) stage 3, GFR 30-59 ml/min Current Visit: Yes Status: Acute Code(s): N18.3 - CHRONIC KIDNEY DISEASE, STAGE 3 (MODERATE) SNOMED Code(s): 986821421 Comment: - Improved from admsission - stable - Continue to Monitor (5) DM2 (diabetes mellitus, type 2) Current Visit: Yes Status: Acute Comment: - Glipizide increased to 5 mg bid 06/29 PM, cont ISS. - Resume Metformin - Moderately good control (6) HTN (hypertension) Current Visit: Yes Status: Acute Code(s): I10 - ESSENTIAL (PRIMARY) HYPERTENSION SNOMED Code(s): 86484825 Comment: - Normotensive generally, slightly hypertensive now. - Continue Lisinopril, increase if indicated for persistent hypertension. (7) DVT prophylaxis Current Visit: Yes Status: Acute Code(s): BFA4996 - SNOMED Code(s): 536952131 Comment: - HSQ, continue to 30 days post-op. (8) Full code status Current Visit: Yes Status: Acute Code(s): Z78.9 - OTHER SPECIFIED HEALTH STATUS SNOMED Code(s): 302846787 Status and Disposition: Inpatient, will need [facility] for nursing home ABX and rehab at D/C. Hopeful D/C Sunday.
--- NOTE | 2018-07-06 12:59 | PN ---
Progress Note - Progress Note Date of Service: 07/06/18 SOAP: Subjective: Pt seen at bedside. No new orthopedic complaints today. Denies F/C Vital Signs: Temp Pulse Resp BP Pulse Ox 97.3 F 80 18 159/80 97 07/06/18 11:30 07/06/18 11:30 07/06/18 11:58 07/06/18 11:30 07/06/18 11:30 Laboratory Last Values WBC 10.8 10^3/uL (3.5-10.8) 07/05/18 06:30 RBC 3.21 10^6 /uL (4.18-5.48) L 07/05/18 06:30 Hgb 8.6 g/dL (14.0-18.0) L 07/05/18 06:30 Hct 27 % (36-46) L 07/05/18 06:30 MCV 84 fL (80-94) 07/05/18 06:30 MCH 27 pg (27-31) 07/05/18 06:30 MCHC 32 g/dL (31-36) 07/05/18 06:30 RDW 15 % (10.5-15) 07/05/18 06:30 Plt Count 529 10^3/uL (150-450) H 07/05/18 06:30 MPV 7.6 fL (7.4-10.4) 07/05/18 06:30 Neut % (Auto) 62.2 % 07/05/18 06:30 Lymph % (Auto) 25.8 % 07/05/18 06:30 [place] % (Auto) 7.9 % 07/05/18 06:30 Eos % (Auto) 3.1 % 07/05/18 06:30 Baso % (Auto) 1.0 % 07/05/18 06:30 Absolute Neuts (auto) 6.7 10^3/ul (1.5-7.7) 07/05/18 06:30 Absolute Lymphs (auto) 2.8 10^3/ul (1.0-4.8) 07/05/18 06:30 Absolute Monos (auto) 0.9 10^3/ul (0-0.8) H 07/05/18 06:30 Absolute Eos (auto) 0.3 10^3/ul (0-0.6) 07/05/18 06:30 Absolute Basos (auto) 0.1 10^3/ul (0-0.2) 07/05/18 06:30 Absolute Nucleated RBC 0 10^3/ul 07/05/18 06:30 Nucleated RBC % 0 07/05/18 06:30 INR (Anticoag Therapy) 1.29 (0.77-1.02) H 06/27/18 06:40 APTT 30.6 seconds (26.0-36.3) 06/25/18 14:02 Sodium 138 mmol/L (135-145) 07/04/18 05:27 Potassium 4.1 mmol/L (3.5-5.0) 07/04/18 05:27 Chloride 106 mmol/L (101-111) 07/04/18 05:27 Carbon Dioxide 26 mmol/L (22-32) 07/04/18 05:27 Anion Gap 6 mmol/L (2-11) 07/04/18 05:27 BUN 20 mg/dL (6-24) 07/05/18 06:30 Creatinine 1.12 mg/dL (0.67-1.17) 07/05/18 06:30 Est GFR ( Amer) 79.4 (>60) 07/05/18 06:30 Est GFR (Non-Af Amer) 65.6 (>60) 07/05/18 06:30 BUN/Creatinine Ratio 21.0 (8-20) H 07/04/18 05:27 Glucose 87 mg/dL (70-100) 07/04/18 05:27 POC Glucose (mg/dL) 142 mg/dL (70-100) H 07/06/18 11:52 Hemoglobin A1c 7.6 % (4.0-5.6) H 06/21/18 16:30 Lactic Acid 1.0 mmol/L (0.5-2.0) 06/21/18 19:20 Calcium 8.6 mg/dL (8.6-10.3) 07/04/18 05:27 Magnesium 1.6 mg/dL (1.9-2.7) L 07/04/18 05:27 Total Bilirubin 0.40 mg/dL (0.2-1.0) 06/21/18 16:30 AST 22 U/L (13-39) 06/21/18 16:30 ALT 32 U/L (7-52) 06/21/18 16:30 Alkaline Phosphatase 61 U/L (34-104) 06/21/18 16:30 C-Reactive Protein 194.06 mg/L (<8.01) H 06/21/18 16:30 Total Protein 7.6 g/dL (6.4-8.9) 06/21/18 16:30 Albumin 3.4 g/dL (3.2-5.2) 06/21/18 16:30 Globulin 4.2 g/dL (2-4) H 06/21/18 16:30 Albumin/Globulin Ratio 0.8 (1-3) L 06/21/18 16:30 Urine Color Yellow 06/22/18 09:36 Urine Appearance Turbid 06/22/18 09:36 Urine pH 7.0 (5-9) 06/22/18 09:36 Ur Specific [place] 1.010 (1.010-1.030) 06/22/18 09:36 Urine Protein 1+(30 mg/dl) (Negative) A 06/22/18 09:36 Urine Ketones Negative (Negative) 06/22/18 09:36 Urine Blood 1+ (Negative) A 06/22/18 09:36 Urine Nitrate Negative (Negative) 06/22/18 09:36 Urine Bilirubin Negative (Negative) 06/22/18 09:36 Urine Urobilinogen Negative (Negative) 06/22/18 09:36 Ur Leukocyte Esterase 2+ (Negative) A 06/22/18 09:36 Urine WBC (Auto) 3+(>20/hpf) (Absent) A 06/22/18 09:36 Urine RBC (Auto) 3+(>10/hpf) (Absent) A 06/22/18 09:36 Urine Bacteria Absent (Absent) 06/22/18 09:36 Urine Glucose Negative (Negative) 06/22/18 09:36 Vancomycin Trough 20.5 mcg/mL 07/05/18 14:35 Objective: A&O x3, NAD, LLE dressing C/D/I, RLE Dressing changed new betadine soaked wet to dry, necrotic would on dorsum of foot, No drainage. Assessment: 67 yo male bilateral foot infection Plan: Daily betadine wet to dry dressing changes RLE, LLE splint to remain intact. NWB B/L LE Continue Abx Transfer to rehab Sunday
[2018-07-06] MEDS: oxyCODONE TAB* 5 MG TAB PO PRN ×2 (14:10→18:03)
[2018-07-06] MEDS: cefTRIAXone(*) 1 GM in NS 0.9% 50 ML* 50 ML IVPB SCH (16:02)
[2018-07-06] MEDS: Atorvastatin* 20 MG TAB PO SCH (21:04)
[2018-07-07] MEDS: Acetaminophen TAB* 325 MG PO PRN (04:44)
[2018-07-07] MEDS: oxyCODONE TAB* 5 MG TAB PO PRN ×2 (04:45→13:26)
[2018-07-07] MEDS: Clotrimazole TROCHE* 10 MG TROCHE PO SCH ×5 (06:11→21:17)
[2018-07-07] MEDS: Heparin VIAL(*) 5000 UNITS/ML VIAL (FIVE THOUSAND) SUBCUT SCH ×3 (06:16→21:28)
[2018-07-07 06:48] LABS: EGFR African American 74.7 (>60); EGFR Non-African American 61.8 (>60)
[2018-07-07] MEDS ORDERED: Vancomycin Trough Check NOTE FOLLOW UP ONE (08:30)
[2018-07-07] MEDS: oxyCODONE SR TAB(*) 20 MG TAB.SR PO SCH ×2 (08:33→21:16)
[2018-07-07] MEDS: Lisinopril TAB* 5 MG PO SCH (08:34)
[2018-07-07] MEDS: metFORMIN* 500 MG TAB PO SCH ×2 (08:34→17:22)
[2018-07-07] MEDS: Tamsulosin CAP* 0.4 MG PO SCH (08:34)
[2018-07-07] MEDS: glipiZIDE TAB* 5 MG PO SCH ×2 (08:34→17:22)
[2018-07-07] MEDS: Insulin LISPRO* 1 UNITS UNIT SUBCUT SCH ×4 (08:35→21:17)
[2018-07-07] MEDS: Polyethylene Glycol 3350* 17 GM PACKET PO SCH ×2 (08:35→21:17)
[2018-07-07] MEDS: Vancomycin(*) 750 MG in NS 0.9% 250 ML* 250 ML IVPB SCH ×2 (09:47→21:17)
[2018-07-07] MEDS: Clotrimazole 1% CREAM* 45 GM TOPICAL SCH ×4 (11:59→21:18)
[2018-07-07] MEDS: Nystatin TOP POWDER* 15 GM BTL TOPICAL SCH ×2 (11:59→21:17)
--- NOTE | 2018-07-07 12:30 | PN ---
Subjective Date of Service: 07/07/18 Interval History: Pt reports he overall feels better today. He just had his dressing changed and does have some increased pain from the change. He denies fever/chills. No N/V/ D. Family History: Unchanged from Admission Social History: Unchanged from Admission Past Medical History: Unchanged from Admission Objective Active Medications: Acetaminophen (Tylenol Tab*) 650 mg PO Q6H PRN PRN Reason: FEVER/PAIN Last Admin: 07/07/18 04:44 Dose: 650 mg Atorvastatin Calcium (Lipitor*) 20 mg PO BEDTIME [facility] Last Admin: 07/06/18 21:04 Dose: 20 mg Clotrimazole (Mycelex Hanane*) 10 mg PO FIVE TIMES DAILY [facility] Last Admin: 07/07/18 11:13 Dose: 10 mg Clotrimazole (Clotrimazole 1%*) 1 applic TOPICAL QID [facility] Last Admin: 07/07/18 11:59 Dose: Not Given Dextrose (D50w Syringe 50 Ml*) 12.5 gm IV PUSH .FOR FS < 60 - SS PRN PRN Reason: FS < 60 Glipizide (Glucotrol Tab*) 10 mg PO 0800,1700 [facility] Last Admin: 07/07/18 08:34 Dose: 10 mg Heparin Sodium (Porcine) (Heparin Vial(*)) 5,000 units SUBCUT Q8HR [facility] Last Admin: 07/07/18 06:16 Dose: 5,000 units Heparin Sodium (Porcine) (Heparin Flush Picc/Ml/Cvc(*)) 1 - 3 ml FLUSH 0600, 1800 [facility]; Protocol Last Admin: 07/07/18 06:12 Dose: 1 ml Ceftriaxone Sodium 1 gm/ (Sodium Chloride) 50 mls @ 200 mls/hr IVPB Q24H [facility] Last Admin: 07/06/18 16:02 Dose: 200 mls/hr Vancomycin HCl 750 mg/ Sodium (Chloride) 250 mls @ 166.667 mls/hr IVPB Q12H [facility] Last Admin: 07/07/18 09:47 Dose: 166.667 mls/hr Insulin Human Lispro (Humalog*) 0 units SUBCUT ACHS [facility]; Protocol Last Admin: 07/07/18 12:06 Dose: Not Given Lisinopril (Prinivil Tab*) 2.5 mg PO DAILY [facility] Last Admin: 07/07/18 08:34 Dose: 2.5 mg Meclizine HCl (Antivert Tab*) 25 mg PO Q8HR PRN PRN Reason: DIZZINESS Metformin HCl (Glucophage*) 500 mg PO BID WITH MEALS [facility] Last Admin: 07/07/18 08:34 Dose: 500 mg Morphine Sulfate (Morphine Inj ((Syringe))*) 2 mg IV Q3H PRN PRN Reason: SEVERE PAIN Last Admin: 07/03/18 16:41 Dose: 2 mg Nystatin (Nystatin Top Powder*) 1 applic TOPICAL BID [facility] Last Admin: 07/07/18 11:59 Dose: Not Given Ondansetron HCl (Zofran Inj*) 4 mg IV Q6H PRN PRN Reason: NAUSEA Oxycodone HCl (Oxycontin(*)) 20 mg PO Q12HR [facility] Last Admin: 07/07/18 08:33 Dose: 20 mg Oxycodone HCl (Roxycodone Tab*) 10 mg PO Q4H PRN PRN Reason: PAIN Last Admin: 07/07/18 04:45 Dose: 10 mg Pharmacy Consult (Vancomycin Per Pharmacy*) 1 note FOLLOW UP .VANC PER PHARMACY [facility] Polyethylene Glycol/Electrolytes (Miralax*) 17 gm PO BID [facility] Last Admin: 07/07/18 08:35 Dose: Not Given Tamsulosin HCl (Flomax Cap*) 0.4 mg PO DAILY [facility] Last Admin: 07/07/18 08:34 Dose: 0.4 mg Vital Signs - 8 hr 07/07/18 07/07/18 07/07/18 04:45 07:00 08:00 Temperature 97.8 F Pulse Rate 78 Respiratory 16 14 20 Rate Blood Pressure 145/60 (mmHg) O2 Sat by Pulse 96 Oximetry 07/07/18 07/07/18 07/07/18 08:33 08:35 11:14 Temperature Pulse Rate Respiratory 20 20 20 Rate Blood Pressure (mmHg) O2 Sat by Pulse Oximetry 07/07/18 11:15 Temperature 98.3 F Pulse Rate 80 Respiratory 14 Rate Blood Pressure 137/79 (mmHg) O2 Sat by Pulse 94 Oximetry Oxygen Devices in Use Now: None Appearance: 67 yo male laying in bed A+O x3 in NAD Eyes: No Scleral Icterus, PERRLA Ears/Nose/Mouth/Throat: Mucous Membranes Moist Neck: NL Appearance and Movements; NL JVP Respiratory: Symmetrical Chest Expansion and Respiratory Effort, Clear to Auscultation Cardiovascular: NL Sounds; No Murmurs; No JVD, RRR Abdominal: NL Sounds; No Tenderness; No Distention, - - obese Extremities: - - left LE wrapped in CD+I, no drainage noted. RLE Dressing intact CD+I, no drainage noted. Toes warm pink. Neurological: Alert and Oriented x 3 Lines/Tubes/Other Access: Clean, Dry and Intact Peripheral IV Nutrition: Taking PO's Result Diagrams: 07/05/18 06:30 07/07/18 06:10 Microbiology and Other Data: Microbiology 06/21/18 20:05 Nasal Screen MRSA (PCR) - Final Nasal Mrsa Detected 06/21/18 17:25 Skin and Soft Tissue MRSA/MSSA (PCR - Final Foot Left Mrsa Negative S.aureus Negative Gram Stain - Final Assess/Plan/Problems-Billing Assessment: 67 yo m with h/o DM, CKD, HTN who suffered from multiple b/l foot wounds after trying to break up a dog fight 06/03/18. Transferred to [facility] and had b/l foot surgery on 06/04/18 with left forth toe amputation and multiple wound sutured and left great toe pinned. Transferred to [facility] on 06/21/18 and back to our ED the same day after staff at [facility] noted gangrene on left 3rd toe who is S/P 3 procedures and is improving slowly with IV antibiotics. - Patient Problems (1) Osteomyelitis Comment: - 3rd and forth metatarsal , s/p left midfoot amputation on 06/23/18. - S/p r foot debridement and Vac placement on 06/24/18, repeat debridement with closure L foot wound 06/27/18. WoundVac R foot on 06/28. - OR with debridement of the right foot on 07/01, dresssing changed to right foot today - Cont ceftriaxone, vancomycin, day - Cx positive for E. coli, MRSA, and bacterioides - Oycodone SR starting 313 PM. - Flagyl stopped, will need IV ABX at rehab. (2) Gangrene of foot Comment: - Wet/dry gangrene on admission - continue antibiotics as above - ID input appreciated (3) Anemia Comment: - Stable, Normocytic - No signs of acute bleeding (4) CKD (chronic kidney disease) stage 3, GFR 30-59 ml/min Comment: - Improved from admsission - stable - Continue to Monitor (5) DM2 (diabetes mellitus, type 2) Comment: - Glipizide increased to 5 mg bid 3/16 PM, cont ISS. - Resume Metformin - Good control (6) HTN (hypertension) Comment: - Continue Lisinopril. Controlled (7) DVT prophylaxis Comment: - HSQ, continue to 30 days post-op. (8) Full code status Status and Disposition: Inpatient, will need [facility] for [facility] ABX and rehab at D/C. Hopeful D/C Sunday.
--- NOTE | 2018-07-07 13:09 | PN ---
Progress Note - Progress Note Date of Service: 07/07/18 SOAP: Subjective: Pt seen at bedside. Minimal complaint of pain. No new compliant. Denies CP, SOB , F/C. Vital Signs: Temp Pulse Resp BP Pulse Ox 98.3 F 80 14 137/79 94 07/07/18 11:15 07/07/18 11:15 07/07/18 11:15 07/07/18 11:15 07/07/18 11:15 Laboratory Last Values WBC 10.8 10^3/uL (3.5-10.8) 07/05/18 06:30 RBC 3.21 10^6 /uL (4.18-5.48) L 07/05/18 06:30 Hgb 8.6 g/dL (14.0-18.0) L 07/05/18 06:30 Hct 27 % (36-46) L 07/05/18 06:30 MCV 84 fL (80-94) 07/05/18 06:30 MCH 27 pg (27-31) 07/05/18 06:30 MCHC 32 g/dL (31-36) 07/05/18 06:30 RDW 15 % (10.5-15) 07/05/18 06:30 Plt Count 529 10^3/uL (150-450) H 07/05/18 06:30 MPV 7.6 fL (7.4-10.4) 07/05/18 06:30 Neut % (Auto) 62.2 % 07/05/18 06:30 Lymph % (Auto) 25.8 % 07/05/18 06:30 [place] % (Auto) 7.9 % 07/05/18 06:30 Eos % (Auto) 3.1 % 07/05/18 06:30 Baso % (Auto) 1.0 % 07/05/18 06:30 Absolute Neuts (auto) 6.7 10^3/ul (1.5-7.7) 07/05/18 06:30 Absolute Lymphs (auto) 2.8 10^3/ul (1.0-4.8) 07/05/18 06:30 Absolute Monos (auto) 0.9 10^3/ul (0-0.8) H 07/05/18 06:30 Absolute Eos (auto) 0.3 10^3/ul (0-0.6) 07/05/18 06:30 Absolute Basos (auto) 0.1 10^3/ul (0-0.2) 07/05/18 06:30 Absolute Nucleated RBC 0 10^3/ul 07/05/18 06:30 Nucleated RBC % 0 07/05/18 06:30 INR (Anticoag Therapy) 1.29 (0.77-1.02) H 06/27/18 06:40 APTT 30.6 seconds (26.0-36.3) 06/25/18 14:02 Sodium 138 mmol/L (135-145) 07/04/18 05:27 Potassium 4.1 mmol/L (3.5-5.0) 07/04/18 05:27 Chloride 106 mmol/L (101-111) 07/04/18 05:27 Carbon Dioxide 26 mmol/L (22-32) 07/04/18 05:27 Anion Gap 6 mmol/L (2-11) 07/04/18 05:27 BUN 20 mg/dL (6-24) 07/07/18 06:10 Creatinine 1.18 mg/dL (0.67-1.17) H 07/07/18 06:10 Est GFR ( Amer) 74.7 (>60) 07/07/18 06:10 Est GFR (Non-Af Amer) 61.8 (>60) 07/07/18 06:10 BUN/Creatinine Ratio 21.0 (8-20) H 07/04/18 05:27 Glucose 87 mg/dL (70-100) 07/04/18 05:27 POC Glucose (mg/dL) 92 mg/dL (70-100) 07/07/18 07:44 Hemoglobin A1c 7.6 % (4.0-5.6) H 06/21/18 16:30 Lactic Acid 1.0 mmol/L (0.5-2.0) 06/21/18 19:20 Calcium 8.6 mg/dL (8.6-10.3) 07/04/18 05:27 Magnesium 1.6 mg/dL (1.9-2.7) L 07/04/18 05:27 Total Bilirubin 0.40 mg/dL (0.2-1.0) 06/21/18 16:30 AST 22 U/L (13-39) 06/21/18 16:30 ALT 32 U/L (7-52) 06/21/18 16:30 Alkaline Phosphatase 61 U/L (34-104) 06/21/18 16:30 C-Reactive Protein 194.06 mg/L (<8.01) H 06/21/18 16:30 Total Protein 7.6 g/dL (6.4-8.9) 06/21/18 16:30 Albumin 3.4 g/dL (3.2-5.2) 06/21/18 16:30 Globulin 4.2 g/dL (2-4) H 06/21/18 16:30 Albumin/Globulin Ratio 0.8 (1-3) L 06/21/18 16:30 Urine Color Yellow 06/22/18 09:36 Urine Appearance Turbid 06/22/18 09:36 Urine pH 7.0 (5-9) 06/22/18 09:36 Ur Specific [place] 1.010 (1.010-1.030) 06/22/18 09:36 Urine Protein 1+(30 mg/dl) (Negative) A 06/22/18 09:36 Urine Ketones Negative (Negative) 06/22/18 09:36 Urine Blood 1+ (Negative) A 06/22/18 09:36 Urine Nitrate Negative (Negative) 06/22/18 09:36 Urine Bilirubin Negative (Negative) 06/22/18 09:36 Urine Urobilinogen Negative (Negative) 06/22/18 09:36 Ur Leukocyte Esterase 2+ (Negative) A 06/22/18 09:36 Urine WBC (Auto) 3+(>20/hpf) (Absent) A 06/22/18 09:36 Urine RBC (Auto) 3+(>10/hpf) (Absent) A 06/22/18 09:36 Urine Bacteria Absent (Absent) 06/22/18 09:36 Urine Glucose Negative (Negative) 06/22/18 09:36 Vancomycin Trough 18.2 mcg/mL 07/07/18 08:40 Objective: A&O x3, NAD, LLE dressing C/D/I, RLE dressing changed, necrotic would on dorsum of foot unchanged, no drainage, wounds C/D/I, new Betadine soaked wet to dry dressing applied. Assessment: 67 yo male bilateral foot infections Plan: Daily betadine wet to dry dressing changes daily RLE, LLE splint to remail intact. NWB BLE Continue Abx Transfer to rehab Saturday 07/08
[2018-07-07] MEDS: cefTRIAXone(*) 1 GM in NS 0.9% 50 ML* 50 ML IVPB SCH (15:26)
[2018-07-07] MEDS: Morphine INJ* 2 MG/ML 1 ML SYRINGE (TWO MG - NEW SYRINGE VERSION) IV PRN (20:09)
[2018-07-07] MEDS: Atorvastatin* 20 MG TAB PO SCH (21:16)
[2018-07-08] MEDS: oxyCODONE TAB* 5 MG TAB PO PRN ×2 (00:56→05:19)
[2018-07-08] MEDS: Heparin VIAL(*) 5000 UNITS/ML VIAL (FIVE THOUSAND) SUBCUT SCH (05:19)
[2018-07-08] MEDS: Clotrimazole TROCHE* 10 MG TROCHE PO SCH ×2 (05:20→09:51)
[2018-07-08 05:50] LABS: ABS Basophils 0.1 10^3/ul (0-0.2); ABS Eosinophils 0.4 10^3/ul (0-0.6); ABS Lymphocytes 2.5 10^3/ul (1.0-4.8); ABS Monocytes 1.1 10^3/ul (0-0.8); ABS Neutrophils 6.7 10^3/ul (1.5-7.7); ABS Nucleated RBC 0 10^3/ul; Eosinophil % 3.6 %; Hematocrit 29 % (36-46); Hemoglobin 9.3 g/dL (14.0-18.0); Lymphocyte % 23.5 %; Mean Corpuscular HGB Conc 33 g/dL (31-36); Mean Corpuscular Hemoglobin 27 pg (27-31); Mean Corpuscular Volume 84 fL (80-94); Mean Platelet Volume 7.3 fL (7.4-10.4); Nucleated Red Blood Cells % 0; Platelet Count 561 10^3/uL (150-450); Red Blood Count 3.43 10^6 /uL (4.18-5.48); Red Cell Distribution Width 16 % (10.5-15); White Blood Count 10.8 10^3/uL (3.5-10.8)
[2018-07-08 05:59] LABS: BUN/Creatinine Ratio 16.1 (8-20); EGFR African American 70.6 (>60); EGFR Non-African American 58.3 (>60); Potassium 4.1 mmol/L (3.5-5.0)
[2018-07-08 07:49] VITALS: BP 116/63
[2018-07-08] MEDS: Vancomycin(*) 750 MG in NS 0.9% 250 ML* 250 ML IVPB SCH (08:03)
[2018-07-08] MEDS: Tamsulosin CAP* 0.4 MG PO SCH (08:04)
[2018-07-08] MEDS: Lisinopril TAB* 5 MG PO SCH (08:04)
[2018-07-08] MEDS: oxyCODONE SR TAB(*) 20 MG TAB.SR PO SCH (08:05)
[2018-07-08] MEDS: metFORMIN* 500 MG TAB PO SCH (08:06)
[2018-07-08] MEDS: glipiZIDE TAB* 5 MG PO SCH (08:06)
[2018-07-08] MEDS: Insulin LISPRO* 1 UNITS UNIT SUBCUT SCH (08:14)
[2018-07-08] MEDS: Polyethylene Glycol 3350* 17 GM PACKET PO SCH (08:52)
[2018-07-08] MEDS: Clotrimazole 1% CREAM* 45 GM TOPICAL SCH (08:52)
[2018-07-08] MEDS: Nystatin TOP POWDER* 15 GM BTL TOPICAL SCH (08:52)
--- NOTE | 2018-07-08 09:22 | PN ---
Progress Note - Progress Note Date of Service: 07/08/18 SOAP: Subjective: CC: Bilateral foot infection HPI: Mr. Tyson is a 67 yo male with PMH significant for morbid obesity, DM2, and CKD stage 2-3 who presented to the hospital with concern for bilateral foot infection. He was originally treated for bilateral foot infection at [facility]. He is s/p partial amputation of the left foot and I+D of the right foot. Wound vac has been removed by orthopedics. Denies fever, chills, shortness of breath, abdominal pain, constipation, N/V/D, or pain. He is feeling well. He states that he is going to rehab today. Objective: Vital Signs 07/08/18 07:47 Temperature 98.5 F Temperature Oral Source Pulse Rate 87 Respiratory 18 Rate Blood Pressure 116/63 (mmHg) Blood Pressure 80 Mean O2 Sat by Pulse 94 Oximetry Physical Exam: General: NAD, sitting up in bed Neurological: Alert and Oriented x 3 Cardiovascular: Heart rate regular, no murmur Respiratory: Lungs clear to auscultation bilateral Abdomen: Bowel sounds present, ABD soft, non tender and non distended Skin: Dressing to right foot clean, dry and intact. No surrounding erythema. Left LE dressing clean, dry and intact Laboratory Tests 07/08/18 07/08/18 05:30 05:30 WBC 10.8 Hgb 9.3 L Hct 29 L Plt Count 561 H Sodium 135 Potassium 4.1 Chloride 103 Carbon Dioxide 27 BUN 20 Creatinine 1.24 H Glucose 88 Assessment: 1. Osteomyelitis and gangrene of the left foot, S/P partial amputation. Leukocytosis has resolved, afebrile. Continues to have thrombocytosis, suspect this is reactive and will continue to trend down over time as the infection resolves. 2. Right foot cellulitis, S/P debridement of necrotic tissue 3. DM2 4. Morbid obesity. BMI 47 5. CKD, stage 2-3 Plan: Continue vancomycin 1 gm BID and ceftriaxone 1 gm daily. Both day 17/21. Will need weekly labs while on IV abx (CBC, CMP, CRP, and vancomycin trough). Vancomycin trough goal 10-15. After completion of IV abx should start Doxycycline 100 mg BID for 14 days. Follow up with ID outpatient in 1 month.
[2018-07-08] MEDS: Acetaminophen TAB* 325 MG PO PRN (10:12)
--- NOTE | 2018-07-08 10:30 | DCNOTE ---
Subjective Date of Service: 07/08/18 Interval History: pt reports he is looking forward to discharge and getting to rehab. pain currently controlled. No fever/chills Family History: Unchanged from Admission Social History: Unchanged from Admission Past Medical History: Unchanged from Admission Objective Active Medications: Acetaminophen (Tylenol Tab*) 650 mg PO Q6H PRN PRN Reason: FEVER/PAIN Last Admin: 07/08/18 10:12 Dose: 650 mg Atorvastatin Calcium (Lipitor*) 20 mg PO BEDTIME [facility] Last Admin: 07/07/18 21:16 Dose: 20 mg Clotrimazole (Mycelex Hanane*) 10 mg PO FIVE TIMES DAILY [facility] Last Admin: 07/08/18 09:51 Dose: 10 mg Clotrimazole (Clotrimazole 1%*) 1 applic TOPICAL QID [facility] Last Admin: 07/08/18 08:52 Dose: Not Given Dextrose (D50w Syringe 50 Ml*) 12.5 gm IV PUSH .FOR FS < 60 - SS PRN PRN Reason: FS < 60 Glipizide (Glucotrol Tab*) 10 mg PO 0800,1700 [facility] Last Admin: 07/08/18 08:06 Dose: 10 mg Heparin Sodium (Porcine) (Heparin Vial(*)) 5,000 units SUBCUT Q8HR [facility] Last Admin: 07/08/18 05:19 Dose: 5,000 units Heparin Sodium (Porcine) (Heparin Flush Picc/Ml/Cvc(*)) 1 - 3 ml FLUSH 0600, 1800 [facility]; Protocol Last Admin: 07/08/18 05:19 Dose: 1 ml Ceftriaxone Sodium 1 gm/ (Sodium Chloride) 50 mls @ 200 mls/hr IVPB Q24H [facility] Last Admin: 07/07/18 15:26 Dose: 200 mls/hr Vancomycin HCl 750 mg/ Sodium (Chloride) 250 mls @ 166.667 mls/hr IVPB Q12H [facility] Last Admin: 07/08/18 08:03 Dose: 166.667 mls/hr Insulin Human Lispro (Humalog*) 0 units SUBCUT ACHS [facility]; Protocol Last Admin: 07/08/18 08:14 Dose: Not Given Lisinopril (Prinivil Tab*) 2.5 mg PO DAILY [facility] Last Admin: 07/08/18 08:04 Dose: 2.5 mg Meclizine HCl (Antivert Tab*) 25 mg PO Q8HR PRN PRN Reason: DIZZINESS Metformin HCl (Glucophage*) 500 mg PO BID WITH MEALS [facility] Last Admin: 07/08/18 08:06 Dose: 500 mg Nystatin (Nystatin Top Powder*) 1 applic TOPICAL BID [facility] Last Admin: 07/08/18 08:52 Dose: Not Given Ondansetron HCl (Zofran Inj*) 4 mg IV Q6H PRN PRN Reason: NAUSEA Oxycodone HCl (Oxycontin(*)) 20 mg PO Q12HR [facility] Last Admin: 07/08/18 08:05 Dose: 20 mg Oxycodone HCl (Roxycodone Tab*) 10 mg PO Q4H PRN PRN Reason: PAIN Last Admin: 07/08/18 05:19 Dose: 10 mg Pharmacy Consult (Vancomycin Per Pharmacy*) 1 note FOLLOW UP .VANC PER PHARMACY [facility] Polyethylene Glycol/Electrolytes (Miralax*) 17 gm PO BID [facility] Last Admin: 07/08/18 08:52 Dose: Not Given Tamsulosin HCl (Flomax Cap*) 0.4 mg PO DAILY [facility] Last Admin: 07/08/18 08:04 Dose: 0.4 mg Vital Signs - 8 hr 07/08/18 07/08/18 07/08/18 03:38 04:22 05:19 Temperature 98.3 F Pulse Rate 73 Respiratory 16 20 20 Rate Blood Pressure 129/62 (mmHg) O2 Sat by Pulse 95 Oximetry 07/08/18 07/08/18 07/08/18 07:47 08:00 08:05 Temperature 98.5 F Pulse Rate 87 Respiratory 18 18 18 Rate Blood Pressure 116/63 (mmHg) O2 Sat by Pulse 94 Oximetry 07/08/18 10:10 Temperature Pulse Rate Respiratory 18 Rate Blood Pressure (mmHg) O2 Sat by Pulse Oximetry Oxygen Devices in Use Now: None Appearance: 67 yo chronically ill male A+O x3 in NAD Eyes: No Scleral Icterus, PERRLA Ears/Nose/Mouth/Throat: Mucous Membranes Moist Respiratory: Symmetrical Chest Expansion and Respiratory Effort, Clear to Auscultation Cardiovascular: NL Sounds; No Murmurs; No JVD, RRR Extremities: - - LLE with enclosed ricardo wrap soft cast - CD+I, RLE ricardo wrap dressing CD+I Neurological: Alert and Oriented x 3 Lines/Tubes/Other Access: Clean, Dry and Intact Peripheral IV Nutrition: Taking PO's Result Diagrams: 07/08/18 05:30 07/08/18 05:30 Microbiology and Other Data: Microbiology 06/21/18 20:05 Nasal Screen MRSA (PCR) - Final Nasal Mrsa Detected 06/21/18 17:25 Skin and Soft Tissue MRSA/MSSA (PCR - Final Foot Left Mrsa Negative S.aureus Negative Gram Stain - Final Assess/Plan/Problems-Billing Assessment: 67 yo m with h/o DM, CKD, HTN who suffered from multiple b/l foot wounds after trying to break up a dog fight 06/03/18. Transferred to [facility] and had b/l foot surgery on 06/04/18 with left forth toe amputation and multiple wound sutured and left great toe pinned. Transferred to [facility] on 06/21/18 and back to our ED the same day after staff at [facility] noted gangrene on left 3rd toe who is S/P 3 procedures and is improving slowly with IV antibiotics. - Patient Problems (1) Osteomyelitis Comment: - 3rd and forth metatarsal , s/p left midfoot amputation on 06/23/18. - S/p r foot debridement and Vac placement on 06/24/18, repeat debridement with closure L foot wound 06/27/18. WoundVac R foot on 06/28. - OR with debridement of the right foot on 07/01, dresssing changed to right foot today - Cont ceftriaxone, vancomycin, day - Cx positive for E. coli, MRSA, and bacterioides - Oycodone SR starting 06/26 PM. - Flagyl stopped, will need IV ABX at rehab. - After IV abx are complete start Doxy 100 mg BID for 14 days - follow up in 1 month with ID (2) Gangrene of foot Comment: - Wet/dry gangrene on admission - continue antibiotics as above - ID input appreciated (3) Anemia Comment: - Stable, Normocytic - No signs of acute bleeding (4) CKD (chronic kidney disease) stage 3, GFR 30-59 ml/min Comment: - Improved from admsission - stable - Continue to Monitor (5) DM2 (diabetes mellitus, type 2) Comment: - Glipizide increased to 5 mg bid 3/16 PM, cont ISS. - Resume Metformin - Good control (6) HTN (hypertension) Comment: - Continue Lisinopril. Controlled (7) DVT prophylaxis Comment: - HSQ, continue to 30 days post-op. (8) Full code status Status and Disposition: Inpatient, will need [facility] for jail ABX and rehab [place] today kaleb anguiano anselmo
--- NOTE | 2018-07-08 11:15 | DS ---
CC: Dr. Olmedo, CC to include labs * DISCHARGE SUMMARY: ADDENDUM: DATE OF ADMISSION: 06/21/18 DATE OF DISCHARGE: 07/08/18 ATTENDING PHYSICIAN: Dr. Benavidez * (report dictated by Marybel Sun NP). PRIMARY CARE PROVIDER: Dr. Lora Monterroso. ORTHOPEDIC SURGEON: Dr. Baum. INFECTIOUS DISEASE: Dr. Olmedo. Please see dictated discharge summary for full discharge summary. The patient had a delay in his discharge due to waiting for bed. There is a full discharge summary on 07/05/18, and in review of this discharge summary, the only changes will be that the patient currently today is on day 17 of 21 days of his antibiotics, which are vancomycin 1 g b.i.d. and ceftriaxone 1 g daily as well as per Infectious Disease, Dr. Olmedo, after the completion of IV antibiotics , the patient should started on doxycycline 100 mg p.o. b.i.d. for 14 days. He is to follow up with Dr. Olmedo, Infectious Disease, in [place], [place] in 1 month. He is to have a CBC, CMP, CRP, and vanco trough weekly. As previous discharge summary, the patient is to follow up with orthopedic surgeon, Dr. Baum, in 1 week. The patient was seen and evaluated today. He remained stable and is looking forward to transfer to subacute rehab. Per orthopedic team, he is nonweightbearing in bilateral lower extremities. TIME SPENT: Approximately 45 minutes were spent on this discharge. The patient is stable. MARYBEL SUN NP [id number]/[facility] #: [id number] [facility] HOSPITALMaria
== END 2018-07-08 11:45 | DRG 853 ==
LOC: ED 15:49 → MED 18:06 → MEDTELE 06-22 01:08 → SSU 06-23 11:17
PROVIDERS: ADMIT Student in an Organized Health Care Education/Training Program; ATTEND Internal Medicine
PROC: 0Y6N0Z0 Detachment at Left Foot, Complete, Open Approach (ICD-10-PCS; principal; 2018-06-23 08:30)
PROC: 0LBV0ZZ Excision of Right Foot Tendon, Open Approach (ICD-10-PCS; 2018-06-24)
PROC: 0QTM0ZZ Resection of Left Tarsal, Open Approach (ICD-10-PCS; 2018-06-27)
PROC: 0HBNXZZ Excision of Left Foot Skin, External Approach (ICD-10-PCS; 2018-06-27)
PROC: 0HBMXZZ Excision of Right Foot Skin, External Approach (ICD-10-PCS; 2018-06-27)
PROC: 0HBMXZZ Excision of Right Foot Skin, External Approach (ICD-10-PCS; 2018-07-01)
PROC: 05HY33Z Insertion of Infusion Device into Upper Vein, Percutaneous Approach (ICD-10-PCS; 2018-07-03)
DX: A41.9 Sepsis, unspecified organism (principal); A48.0 Gas gangrene; N17.9 Acute kidney failure, unspecified; E11.52 Type 2 diabetes mellitus with diabetic peripheral angiopathy with gangrene; Z68.42 Body mass index [BMI] 45.0-49.9, adult; M86.8X7 Other osteomyelitis, ankle and foot; L03.116 Cellulitis of left lower limb; E11.22 Type 2 diabetes mellitus with diabetic chronic kidney disease; L89.899 Pressure ulcer of other site, unspecified stage; E11.69 Type 2 diabetes mellitus with other specified complication; E11.622 Type 2 diabetes mellitus with other skin ulcer; L97.529 Non-pressure chronic ulcer of other part of left foot with unspecified severity; E11.65 Type 2 diabetes mellitus with hyperglycemia; E66.01 Morbid (severe) obesity due to excess calories; L03.031 Cellulitis of right toe; N18.3 Chronic kidney disease, stage 3 (moderate); D47.3 Essential (hemorrhagic) thrombocythemia; B96.20 Unspecified Escherichia coli [E. coli] as the cause of diseases classified elsewhere; B95.62 Methicillin resistant Staphylococcus aureus infection as the cause of diseases classified elsewhere; B96.6 Bacteroides fragilis [B. fragilis] as the cause of diseases classified elsewhere; D64.9 Anemia, unspecified; I12.9 Hypertensive chronic kidney disease with stage 1 through stage 4 chronic kidney disease, or unspecified chronic kidney disease; N40.1 Benign prostatic hyperplasia with lower urinary tract symptoms; R33.8 Other retention of urine; Z89.422 Acquired absence of other left toe(s); Z79.84 Long term (current) use of oral hypoglycemic drugs; Z79.1 Long term (current) use of non-steroidal anti-inflammatories (NSAID); Z79.891 Long term (current) use of opiate analgesic; Z79.899 Other long term (current) drug therapy; Z82.49 Family history of ischemic heart disease and other diseases of the circulatory system; Z84.1 Family history of disorders of kidney and ureter; Z80.0 Family history of malignant neoplasm of digestive organs
CPT/HCPCS: 36415; 80048; 80053; 80202; 81003; 81015; 82565; 83036; 83605; 83735; 84520; 85025; 85027; 85610; 85730; 86140; 87040; 87070; 87073; 87077; 87086; 87186; 87205; 87640; 87641; 88304; 88307; 88311; 90732; 99285; A9270-GY; C1751; G8978-GP-CM; G8979-GP-CI; J0696; J1100; J1170; J1200; J1644; J2001; J2020; J2250; J2270; J2405; J2543; J2704; J2765; J3010; J3370; J3475